=== PATIENT | male | born 1965 | race Hispanic/Latino ===

== ENCOUNTER 2019-10-30 09:00 | Outpatient (RCR) | payer OTHER, SELFPAY ==
--- NOTE | 2019-07-31 10:48 | PCOTNOTE ---
The treatment documented on this account is a continuation of the treatment documented on visit number [id number] in [employer] EMR. Please see documentation on both accounts to view progress. The Plan of Care has been transitioned and updated within the new V#. I have addressed and agree with the discipline specific Problems, Interventions, and Goals for the current certification period. Completed interventions, outcomes, and problems have been marked as Inactive to facilitate the copying of the Care plan routine for recurring accounts.
--- NOTE | 2019-08-01 11:24 | PCPTNOTE ---
The treatment documented on this account is a continuation of the treatment documented on visit number [id number]. Please see documentation on both accounts to view progress. The Plan of Care has been transitioned and updated within the new V#. I have addressed and agree with the discipline specific Problems, Interventions, and Goals for the current certification period. Completed interventions, outcomes, and problems have been marked as Inactive to facilitate the copying of the Care plan routine for recurring accounts.
--- NOTE | 2019-08-06 10:46 | PTOPEVAL ---
PHYSICAL THERAPY REEVALUATION/PROGRESS REPORT 08-06-19 Continue PT 2x/week for 2 weeks, to continue to increase strength and activity level for return to work tasks. With progression of home exercises and activity level. Thank you for referring Leonardo to [facility]. Please review, sign, date and return this plan of care PANCHO. I agree with and certify that the following plan of care is medically necessary. Referring Physician Date Admitting Provider: Attending Provider: Josué Aguilar, EXERCISE EQUIPMENT SPECIALIST Referring Provider: *PT Outpatient Evaluation Start: 08/06/19 08:52 Freq: Status: Active Protocol: Document 08/06/19 08:52 LOIS (Rec: 08/06/19 09:34 LOIS [id number]) Therapy Assessment Status Assessment Status Assessment Status Re-evaluation Pain Assessment Timing of Pain Assessment Timing of Pain Assessment Assessment Self Report Self Report Pain Level 0 Pain Score Pain Score 0: Self Report Additional Pain Score Comments states R leg feels heavy and tired, weak Lower Extremity Muscle Strength Testing General Lower Extremity Strength Gross Lower Extremity Strength -R LE: ankle circles clock and counter clockwise with good control x 20 in sitting; SLS 12 seconds; -L LE: SLS 20 sec; -standing green theraband R and L: 20 reps hip abduction, flex and extension; NO UE support; B UE lifting: floor/waist 30# x 10 reps with cues for correct technique for lifting from floor; Transfer Assessment Floor Transfer Assessment Floor Transfer Destination Standing Stand to Floor Transfer Ability Independent Floor to Stand Transfer Ability Independent Cues Needed for Floor Transfer None Floor Transfer Comments performed without any problems Balance Assessment Tran Balance Assessment Sitting to Standing Independent w/out Hands Unsupported Stance Ability Safely- 2 minutes Sitting Unsupported, Feet on Floor Safely- 2 minutes Standing to Sitting Safely, Minimal Hand Use Transfer Ability Safely, Minimal Hand Use Unsupported Stance- Eyes Closed Safely, 10 seconds Unsupported Stance- Feet Together Independent, 1 minute Reaching Forward while Standing Confidently, 10 inches 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
--- NOTE | 2019-08-11 08:22 | PCPTNOTE ---
Patient's called & cancelled scheduled appointment this date due to returned to the hospital possibly another stroke.
--- NOTE | 2019-08-11 15:37 | PCOTNOTE ---
Patient called to cancel OT treatment today due to being in the hospital due to having another stroke.
--- NOTE | 2019-08-18 08:28 | PCPTNOTE ---
Patient called & cancelled scheduled appointment this date, left voicemail on patient's home line stating needing a new order from MD to continue PT before treatment can be continued and will needed to schedule next appointment to re-eval patient due to new condition
--- NOTE | 2019-08-20 13:33 | PCPTNOTE ---
pt called and canceled today's reevaluation;
[2019-08-26 07:35] VITALS: BP_SYST 180
--- NOTE | 2019-08-26 10:53 | OTOPEVAL ---
Addendum entered by Dejon Nova, OTR/Roxana, CHT 08/26/19 11:46: Edit from initial note----Plan to see Leonardo 2-3x/week for 4 weeks. Original Note: OT REASSESSMENT NOTE 08/26/19 Thank you for referring this patient to [facility] [place]Note 2]. Leonardo requires skilled OT 2x/week for 4 weeks to address deficits outlined below. Please review, sign, date and return this re-eval summary PANCHO. I agree with and certify that the following plan of care is medically necessary. Referring Physician Date Attending Provider: Josué Aguilar, SOURCING CONSULTANT *OT Outpatient Re-Evaluation Assessment Status Re-evaluation Evaluation Information Problem Diagnosis CVA Onset Acute infarct Aug 2019 Additional Evaluation Detail Leonardo was receiving outpatient therapy x1 month after a CVA which occurred in Jun 2019. He had worsening (R) sided weakness August 2019. MRI (+) acute infarct L jossie. He was hospitalized for ~1 week and discharged home. He presents today for re- evaluation and continued outpatient therapy for UE/LE weakness. Pain Assessment Timing of Pain Assessment Timing of Pain Assessment Re-assessment Pain Scale Pain Scale Used Numeric (1 - 10) Self Report Pain Assessment Right Knee(s) Reported Pain Level 10 Pain Description Aching Right Shoulder(s) Reported Pain Level 7 Pain Description Aching Other Pain Aggravating Factors Pain with shoulder flexion > 120*, symptoms consistent with impingement Pain Score Pain Score 10,7: Self Report Upper Extremity Range of Motion Scapular/ Shoulder Range of Motion Right Scapular: Retraction Hypomobile Scapular: Protraction Hypomobile Scapular Downward Rotation Hypomobile Scapular Upward Rotation Hypomobile Shoulder Flexion - Active 80 Shoulder Flexion - Passive 180 Shoulder Abduction - Active 90 Shoulder Abduction - Passive 180 Scapular/Shoulder Range of Motion Muscle Weakness,Pain Limitations Elbow/Forearm Range of Motion Right Elbow Flexion - Active 90 Elbow Extension - Active -40 Forearm Supination - Active 30 Forearm Pronation - Active 90 Wrist Range of Motion Right Wrist Flexion - Active 10 Wrist Extension - Active 0 Finger Range of Motion Right Finger Range of Motion Comments No AROM of the fingers or thumb. Patient is beginning to
--- NOTE | 2019-08-26 11:40 | PTOPEVAL ---
PHYSICAL THERAPY REEVALUATION AND UPDATED PLAN OF CARE 08-26-19 Mr. Cabello has received 6 Physical Therapy sessions, from July 17 to August 06. He was hospitalized for new CVA with R hemiparesis. And returned today for a reevaluation with new orders to resume PT treatment. He has declined with his R LE strength and mobility, compared to the August 06 reevaluation. The plan of treatment is 2-3 x/week for 4 weeks. Thank you for referring Leonardo to [facility]. Please review, sign, date and return this updated plan of care [facility]. I agree with and certify that the following plan of care is medically necessary. Referring Physician Date Admitting Provider: Attending Provider: Josué Aguilar, HIGH DENSITY TALC COATER OPERATOR Referring Provider: *PT Outpatient Re-Evaluation Start: 08/06/19 08:52 Freq: Status: Active Protocol: Document 08/26/19 08:30 LOIS (Rec: 08/26/19 09:35 LOIS [email or web address]) Therapy Assessment Status Assessment Status Assessment Status Re-evaluation Problem Diagnosis s/p CVA with R hemiparesis Subjective Information pt hospitalized and has new Query Text:As Reported By Patient/ order dated 08-20-19 to Family continue PT treatment Pain Assessment Pain Scale Pain Scale Used Numeric (1 - 10) Self Report Pain Assessment Right Knee(s) Reported Pain Level 10 Radicular Pain Location patella and medial knee Pain Frequency Acute Current Pain Intensity 10 Lowest Pain Intensity 0 Greatest Pain Intensity 10 Pain Level Goal 0 Other Pain Aggravating Factors sit to stand, walking Right Shoulder(s) Reported Pain Level 0 Pain Score Pain Score 0,10: Self Report Lower Extremity Muscle Strength Testing General Lower Extremity Strength Reason Not Measured WNL/Right Gross Lower Extremity Strength L hip:flex 2+/5;abduct 3-/5; ext 3-/5 L knee: flex 2/5; extension 3- /5 L ankle DF, inversion and eversion 0/5; PF 1/5; Transfer Assessment Bed Transfer Assessment Bed Transfer Assistive Devices Gait Belt Ambulation Assistive Devices Cane, Straight Sit to Stand Bed Transfer Ability Standby Assistance Stand to Sit Bed Transfer Ability Standby Assistance Chair Transfer Assessment Chair Transfer Assistive Devices Gait Belt Ambulation Assistive Devices Cane, Straight Sit to Stand Chair Transfer Ability Standby Assistance Stand to Sit Chair Transfer Ability Standby Assistance Ability to Transfer In/Out of Chair Standby Assistance Bed Mobility Assessment Bed Mobility Bed Mobility Assistive Devices None Bed Type Mat Supine to Sit Ability Standby Assistance Sit to Supine Ability Standby
--- NOTE | 2019-09-02 07:51 | PCPTNOTE ---
Patient called & cancelled scheduled appointment this date due to another appointment.
--- NOTE | 2019-09-09 08:05 | PTOPEVAL ---
PHYSICAL THERAPY RE-EVALUATION AND UPDATED PLAN OF CARE 09-09-19 Mr. Cabello has received 8 Physical Therapy sessions, from July 17 to today, for the diagnosis of CVA. He was on HOLD during this time frame due to he had an additional CVA in August. He has had a decline in status from the initial evaluation, due to additional CVA. Continue PT treatment 2-3x/week for 4 weeks, to October 03. Thank you for referring Leonardo to [facility]. Please review, sign, date and return this plan of care PANCHO. I agree with and certify that the following plan of care is medically necessary. Referring Physician Date Attending Provider: Josué Aguilar, STACK SUPERVISOR *PT Outpatient RE-Evaluation Document 09/09/19 07:00 LOIS (Rec: 09/09/19 07:45 LOIS [email or web address]) Therapy Assessment Status Assessment Status Assessment Status Re-evaluation Subjective Information reports has not had any falls Query Text:As Reported By Patient/ at home, doing leg exercises, Family going to order the ankle brace tomorrow; Pain Assessment Pain Scale Pain Scale Used Numeric (1 - 10) Self Report Pain Assessment Right Shoulder(s) Reported Pain Level 8 Additional Pain Comments no pain in R knee; R shoulder hurting-pointed lateral shoulder R Pain Score Pain Score 8: Self Report Lower Extremity Muscle Strength Testing General Lower Extremity Strength Gross Lower Extremity Strength supine SLR x 15 reps; hook lying hip rotation R/L, ab& adduction; heel slide with assist of L LE x 15 reps; side lying hip abduct to 10' x 20 reps cues to increase control and decrease speed of motion; Transfer Assessment Bed Transfer Assessment Bed Transfer Assistive Devices None Sit to Stand Bed Transfer Ability Standby Assistance Stand to Sit Bed Transfer Ability Standby Assistance Ability to Transfer To/From the Bed Standby Assistance Cues Needed for Bed Transfer None Chair Transfer Assessment Ambulation Assistive Devices Cane, Straight Sit to Stand Chair Transfer Ability Standby Assistance Stand to Sit Chair Transfer Ability Standby Assistance Ability to Transfer In/Out of Chair Standby Assistance Bed Mobility Assessment Bed Mobility Scooting Side to Side Ability Independent Supine to Sit Ability Independent Sit to Supine Ability Independent Balance Assessment Tinetti Balance Assessment Sitting Balance Steady, safe Ability to Arise Able, w/o using arms Attempts to Arise Arises on 1st attempt Immediate Standing Balance Steady with support Standing Balance Steady, wide stance Nudged Response
--- NOTE | 2019-10-02 07:57 | PTOPEVAL ---
Physical Therapy Re evaluation and updated plan of care 10-02-2019 Leonardo has received 14 Physical Therapy sessions, for the diagnosis of s/p CVA affecting R side. Compared to the last reevaluation, he has improved in all areas: strength of R hip, knee and ankle PF; Tinetti score, sit/stand time, stair ability and has not had any falls. His gait pattern is improved with the AFO and knee hyper extension brace. The scores for Tinetti, TUG, sit/stand and 6 minute walk test are below norms for his age. And he is not able to perform his usual home and work tasks. Recommend continued PT to further increase R LE strength, gait and balance skills, for improved functional mobility and safety, 2x/week for 4 weeks. Thank you for referring Leonardo to [facility]. Please review, sign, date and return this plan of care PANCHO. I agree with and certify that the following plan of care is medically necessary. Referring Physician Date Attending Provider: Josué Aguilar NP *PT Outpatient Re-Evaluation Document 10/02/19 07:05 LOIS (Rec: 10/02/19 07:57 LOIS [email or web address]) Therapy Assessment Status Assessment Status Assessment Status Re-evaluation Re-Evaluation Information Problem Subjective Information Leonardo reports no falls, Query Text:As Reported By Patient/ difficulty on stairs- using Family ramp into home; is with him and performing home chores Pain Assessment Pain Scale Pain Scale Used Numeric (1 - 10) Self Report Pain Assessment Right Knee(s) Reported Pain Level 0 Right Shoulder(s) Reported Pain Level 0 Pain Frequency Chronic Additional Pain Comments had pain in R shoulder yesterday, but it is OK today Lower Extremity Muscle Strength Testing General Lower Extremity Strength Reason Not Measured WNL/Left Gross Lower Extremity Strength R LE: sitting: hip flex ~ 1 off mat x 10 reps; knee ext to 0' x 8 reps, then knee flex; supine R LE: heel slide/hip flex 30' x6; SLR 20 reps; hip abduction x20 reps; bridge with hip ext to 0' x 20 reps; Balance Assessment Tinetti Balance Assessment Sitting Balance Steady, safe Ability to Arise Able, w/o using arms Attempts to Arise Arises on 1st attempt Immediate Standing Balance Steady w/o support Standing Balance Narrow stance w/o support Nudged Response Steady Standing with Eyes Closed Steady Step Pattern Turning 360 Degrees Discontinuous steps Stability Turning 360 Degrees Unsteady, grabs/staggers Sitting Down Safe, steady Initiation of Gait No hesitancy Right Foot Step Length Does pass
--- NOTE | 2019-10-02 09:32 | OTOPEVAL ---
OT RE-EVALUATION REPORT 10/02/19 Thank you for referring this patient to [facility]. As described below, Leonardo is making progress toward ROM and strength goals. Leonardo will benefit from continued skilled OT 2x/week for 4 weeks. Plan 1x/week land and 1x/week aquatic therapy. Please review, sign, date and return this plan of care PANCHO. I agree with and certify that the following plan of care is medically necessary. Referring Physician Date Attending Provider: Josué Aguilar, TOE POUNDER *OT Outpatient Re-Evaluation Re-Evaluation Information Diagnosis s/p CVA x2 Onset May and Aug 2019 Additional Evaluation Detail Leonardo has been participating in outpatient OT 2-3x/week for UE weakness and tone s/p a second CVA. He has made progress with ROM and strength in almost every joint of the (R) UE. He is very compliant with all materials and his is very supportive and helpful with all materials. OT has been focusing on gross strengthening of the (R) UE. Leonardo needs constant visual, tactile, and verbal cues for body mechanics due to hypertoic movement patterns. When raising the arm he elevates the scapula and abducts the arm. E-stim, neuromuscular re-ed, strengthening, HEP education, and manual therapy have been integral to the therapy process. Subjective Information Patient reports improvements Query Text:As Reported By Patient/ with active ROM in the arm, Family especially the wrist and fingers, which were not moving a month ago. He reports he no longer has constant shoulder pain, but intermittent pain. Pain Assessment Timing of Pain Assessment Timing of Pain Assessment Re-assessment Pain Scale Pain Scale Used Numeric (1 - 10) Self Report Pain Assessment Right Wrist(s) Reported Pain Level 5 Pain Description Aching Current Pain Intensity 5 Lowest Pain Intensity 0 Greatest Pain Intensity 5 Right Shoulder(s) Reported Pain Level 0 Pain Description Sharp,Shooting Radicula
--- NOTE | 2019-10-30 08:43 | PTOPEVAL ---
PHYSICAL THERAPY RE-EVALUATION AND UPDATED PLAN OF CARE 10-30-2019 Leonardo has received a total of 22 PT sessions, for the diagnosis of s/p CVA x 2. He has attended all scheduled PT appointments and works hard during sessions. Compared to the last reevaluation on 10-02-19: increased strength of R LE: sitting knee ext, toe ext, ankle DF; 6 min walk increased distance by 55'; TUG, 5x sit/stand, Tinetti are within 1 of the last #; Stairs have improved with the cane only from mod to min assist; gait pattern is about the same--due to decreased R knee flexion strength and extension tone. His continues to assist him at home with home tasks, dressing and transportation. He remains motivated, doing HEP and during PT sessions, using electrical stim to facilitate ankle and toe extension. PT is recommended to continue 2x/week for 4 weeks, to further increase R toe, ankle and knee strength, electrical stim to facilitate motion and balance and gait retraining to improve pattern and safety with mobility skills. Thank you for referring Leonardo to [facility]. Please review, sign, date and return this plan of care [facility]. I agree with and certify that the following plan of care is medically necessary. Referring Physician Date Attending Provider: Josué Aguilar NP *PT Outpatient Re-Evaluation Document 10/30/19 07:45 LOIS (Rec: 10/30/19 08:32 LOIS [email or web address]) Problem Subjective Information Leonardo reports: no falls at Query Text:As Reported By Patient/ home; walking out in community Family with cane; is doing all of his leg exercises; continues to do as much as he can at home; Pain Assessment Timing of Pain Assessment Timing of Pain Assessment Assessment Pain Scale Pain Scale Used Numeric (1 - 10) Self Report Pain Assessment Right Wrist(s) Reported Pain Level 0 Right Shoulder(s) Reported Pain Level 0 Radicular Pain Location sore shoulder at end of day Pain Frequency Chronic Pain Score Pain Score 0,0: Self Report Lower Extremity Muscle Strength Testing General Lower Extremity Strength Gross Lower Extremity Strength L LE: sitting knee ext to 0' x 20 reps; active toe extension 3-/5; ankle PF 2/5; DF trace supine bridge x 20 reps; heel slide--unable to perform due to extension tone of leg; side lying hip abduction x 20 prone hip ext to 0'x 20 reps; unable to perform knee flex in prone; verbal review of HEP for LE strength: continue to do 20 reps on bed and in sitting; in sitting: electrical stim to R ant tib to facilitate t
--- NOTE | 2019-10-30 09:49 | OTOPEVAL ---
OT RE-EVALUATION REPORT 10/30/2019 Thank you for referring this patient to [facility]. As described below, continued skilled OT 2x/week for 4 weeks is recommended. Plan for 1x/week land and 1x/week aquatic. Please review, sign, date and return this plan of care PANCHO. I agree with and certify that the following plan of care is medically necessary. Referring Physician Date Attending Provider: Josué Aguilar *OT Outpatient Re-Evaluation Evaluation Information Problem Diagnosis s/p CVA x2 Onset May and Aug 2019 Additional Evaluation Detail Leonardo has been participating in outpatient OT 2x/week for UE weakness and tone s/p a second CVA. This past month therapy has been utilizing benefits of aquatic therapy to help with his shoulder pain, tone, and weakness. OT has been focusing on gross strengthening of the (R) UE. Leonardo needs constant visual, tactile, and verbal cues for body mechanics due to hypertonic movement patterns. When raising the arm he elevates the scapula and abducts the arm. E-stim, neuromuscular re-ed, strengthening, HEP education, and manual therapy have been integral to the therapy process. Subjective Information Leonardo reports improvements Query Text:As Reported By Patient/ with finger and wrist ROM. He Family states that the improvements in ROM have increased his ability to dress and bathe. His biggest limitation this month has been right shoulder pain. He reports really enjoying the aquatic therapy and that it has helped reduce his shoulder pain. Pain Assessment Timing of Pain Assessment Timing of Pain Assessment Re-assessment Pain Scale Pain Scale Used Numeric (1 - 10) Self Report Pain Assessment Right Shoulder(s) Reported Pain Level 10 Pain Description Sharp,Shooting Lowest Pain Intensity 0 Greatest Pain Intensity 10 Other Pain Aggravating Factors Pain with shoulder AROM > 90*, consistent with impingement Pain Score Pain Sco
--- NOTE | 2019-11-11 09:41 | PCOTNOTE ---
This treatment is being continued on visit number [id number]. Please see documentation on both accounts to view progress. Completed interventions, outcomes, and problems have been marked as Inactive to facilitate the copying of the Care plan routine for recurring accounts.
--- NOTE | 2019-11-11 10:21 | PCPTNOTE ---
This treatment is being continued on visit number [id number]. Please see documentation on both accounts to view progress. Completed interventions, outcomes, and problems have been marked as Inactive to facilitate the copying of the Care plan routine for recurring accounts.
== END 2019-10-30 23:59 | disposition home or self-care (01) ==
LOC: ANHOT 09:00
PROVIDERS: PCP Registered Nurse; Visit Provider Registered Nurse
DX: G81.90 Hemiplegia, unspecified affecting unspecified side (principal)
CPT/HCPCS: 97014; 97035; 97110; 97112; 97113; 97116; 97140; 97530; 97760; G0283

== ENCOUNTER 2019-12-24 19:41 | Emergency (ER) | payer OTHER, SELFPAY ==
[2019-12-24 19:49] VITALS: BP 110/74; PULSE 81; RESP 19; TEMP 36.4; O2SAT 100
--- NOTE | 2019-12-24 19:55 | ED.SKABFB ---
HPI - Skin/Abscess/Foreign Bdy General Chief complaint: Skin/Abscess/Foreign Body Stated complaint: abd wound Time Seen by Provider: 12/24/19 19:53 Source: patient Mode of arrival: ambulatory Limitations: no limitations History of Present Illness HPI narrative: A 54 y/o male presents to the ED with c/o lower right sided ABD wound. Pt states that yesterday he noticed a wound on the right side of his lower ABD. He reports swelling, pain, and redness around the wound, but denies fever and N/V. Pt is a diabetic and is complaint with all of his medications. He has no other complaints at this time. MD complaint: other (wound to right lower ABD) Onset (ago): day(s) (1) Pain Consistency: constant Associated symptoms: other (right lower ABD pain, swelling, and redness) Related Data Home Medications Medication Instructions Recorded Confirmed Januvia 100 mg PO DAILY 08/10/19 08/10/19 aspirin 81 mg PO DAILY 08/10/19 08/10/19 atorvastatin 40 mg PO DAILY 08/10/19 08/10/19 cetirizine 10 mg PO DAILY 08/10/19 08/10/19 clopidogrel 75 mg PO DAILY 08/10/19 08/10/19 doxazosin 4 mg PO DAILY 08/10/19 08/10/19 glyburide 5 mg PO DAILY 08/10/19 08/10/19 lisinopril 20 mg PO DAILY 08/10/19 08/10/19 metoprolol succinate 100 mg PO DAILY 08/10/19 08/10/19 Allergies Allergy/AdvReac Type Severity Reaction Status Date / Time No Known Allergies Allergy Verified 08/10/19 14:30 Review of Systems Review of Systems: All systems reviewed & are unremarkable except as noted in HPI and below Constitutional: Constitutional: Denies fever(s) Gastrointestinal: Gastrointestinal: Denies nausea and Denies vomiting Integumentary/Breasts: Skin/Breast: Reports swelling (right lower ABD), Reports erythema (right lower ABD) and Reports wounds (right lower ABD with pain) [facility] Past Medical History Medical History Arthritis bilateral shoulders Cerebrovascular accident CVA (cerebral vascular accident) DVT prophylaxis Hyperlipidemia Hypertension Kidney stones Peripheral neuropathy Type 2 diabetes mellitus Surgical History Surgical History H/O cystoscopy with stent H/O inguinal hernia repair History of cardiac cath Family History Family History Mother Diabetes mellitus Coronary artery disease Father Diabetes mellitus Social History Social History Smoking status: Former smoker Alcohol intake: never Substance use: never Gender identity (if verbalized by the patient): Male Spiritual care concerns: No Agree to blood products: Yes Exam Narrative: Exam Narrative: APPEARANCE: No acute distress, nontoxic, resting in bed EYES: EOMI HEENT: Normocephalic, atraumatic, OMM RESPIRATORY: No respiratory distress Clear to auscultation bilaterally with no rhonchi wheezing or rales. CARDIOVASCULAR: Regular rate and rhythm without murmurs rubs or gallops. ABDOMINAL: Soft, nontender, nondistended, no rebound or guarding MUSCULOSKELETAl: Moves all extremities NEURO: Awake and alert. Following commands, speech normal, no focal deficits SKIN:: Warm, dry. The right lower abdomen has a circular area of erythema with centralized fluctuance and no active drainage consistent with an abscess proximally 2.5 cmby 2.5 cm PSYCHIATRIC: Normal affect/mood, Course Course Emergency Course: Discussed with patient results of workup and diagnosis. Discussed need for follow-up with primary care, proper use of medication, and reasons to return to the emergency department. Patient understands and agrees to current treatment plan Vital Signs Vital signs: Vital Signs Temperature 97.5 F L 12/24/19 19:49 Pulse Rate 81 12/24/19 19:49 Respiratory Rate 19 12/24/19 19:49 Blood Pressure 110/74 12/24/19 19:49 Pulse Oximetry 100 12/24/19 19:49 Temperature 97.5 F L 12/24/19
[2019-12-24] MEDS: CEPHALEXIN 500 MG CAPSULE PO (20:47)
== END 2019-12-24 20:48 | disposition home or self-care (01) ==
PROVIDERS: Emergency Provider Emergency Medicine; PCP Registered Nurse
DX: L02.211 Cutaneous abscess of abdominal wall (principal); M19.012 Primary osteoarthritis, left shoulder; M19.011 Primary osteoarthritis, right shoulder; Z86.73 Personal history of transient ischemic attack (TIA), and cerebral infarction without residual deficits; E78.5 Hyperlipidemia, unspecified; I10 Essential (primary) hypertension; Z87.442 Personal history of urinary calculi; E11.42 Type 2 diabetes mellitus with diabetic polyneuropathy; S31.103A Unspecified open wound of abdominal wall, right lower quadrant without penetration into peritoneal cavity, initial encounter; Z87.891 Personal history of nicotine dependence; Z79.82 Long term (current) use of aspirin; Z79.84 Long term (current) use of oral hypoglycemic drugs
CPT/HCPCS: 10060; 99283; A9270

== ENCOUNTER 2020-01-26 11:00 | Outpatient (RCR) | payer OTHER, SELFPAY ==
--- NOTE | 2019-11-11 10:19 | PCPTNOTE ---
PT is continued from previous V # [id number]; plan of care to continue from previous #;
--- NOTE | 2019-11-11 13:07 | PCOTNOTE ---
The treatment documented on this account is a continuation of the treatment documented on visit number [id number]. Please see documentation on both accounts to view progress. The Plan of Care has been transitioned and updated within the new V#. I have addressed and agree with the discipline specific Problems, Interventions, and Goals for the current certification period. Completed interventions, outcomes, and problems have been marked as Inactive to facilitate the copying of the Care plan routine for recurring accounts.
--- NOTE | 2019-11-25 11:42 | OTOPEVAL ---
OCCUPATIONAL THERAPY PROGRESS REPORT 11/25/2019 Thank you for referring this patient to [facility]. As described below, Leonardo is making progress with shoulder stability and strength, which is allowing for improved distal coordination and function. He will benefit from skilled OT 2x/week for 4 weeks. Plan to have 1x/week land and 1x/week aquatic sessions. Aquatic is indicated to utilize thermal (warm) benefits of the water, buoyancy, and resistance to continue to strengthen the shoulder and carlos a-scapular muscles to continue to strengthen and reduce shoulder pain. Please review, sign, date and return this plan of care PANCHO. I agree with and certify that the following plan of care is medically necessary. Referring Physician Date Referring Provider: Josué Aguilar, SOLAR ENERGY SYSTEMS DESIGNER *OT Outpatient Re-Evaluation Assessment Status Re-evaluation Evaluation Information Problem Diagnosis s/p CVA x2 Onset May and Aug 2019 Additional Evaluation Detail This assessment period Leonardo was only able to be seen 3 times, including todays re- evaluation due to insurance only authorizing 3 visits. Pt has made progress, however, the progress is limited due to lack of opportunity to treat the patient with skilled, hands-on instruction. Pain Assessment Timing of Pain Assessment Timing of Pain Assessment Re-assessment Pain Scale Pain Scale Used Numeric (1 - 10) Self Report Pain Assessment Right Shoulder(s) Reported Pain Level 0 Current Pain Intensity 0 Lowest Pain Intensity 0 Greatest Pain Intensity 4 Pain Score Pain Score 0: Self Report Additional Pain Score Comments Pain reduced from 10/10, sharp /shooting pain. Upper Extremity Range of Motion Scapular/ Shoulder Range of Motion Right Shoulder Flexion - Active 90 Shoulder Extension - Active 50 Shoulder Abduction - Active 75 Shoulder Medial Rotation - Active Pt is able to reach the Query Text:Reach Behind the Back lateral aspect of his iliac crest. Shoulder Lateral Rotation - Active Pt actively bends elbow, but Query Text:Reach Behind the Head there is minimal active ER to reach toward face/ear. Painful passively. Scapular/Shoulder Range of Motion Since re-eval on 10/30/19: Comments - shoulder flexion improved 10 * - shoulder extension improved 10* Improved scapular movements; Minimally decreased scapular
--- NOTE | 2019-11-27 08:55 | PTOPEVAL ---
PHYSICAL THERAPY DISCHARGE REPORT 11-27-2019 Mr. Cabello has received 25 PT sessions, from August 04, 2019 to today, for the diagnosis of s/p CVA. Compared to the last reevaluation on 10-30-2019: R LE strength is about the same; Tinetti balance score has decreased by 2 points; TUG has improved by 2 seconds; 6 min walk test has increased by 25'; 5 x sit/stand has improved by 1 second; ability on stairs and walking pattern are the same. He reports he has not had any falls, is going out into the community and is doing his home exercises for leg strengthening. Leonardo continues to perform his HEP and remains active, using the R knee brace and ankle brace. He will be discharged from PT at this time; he is to continue with his home exercises and walking as much as tolerated. Thank you for referring Mr. Cabello to [facility]. Please review, sign, date and return this discharge summary PANCHO. I agree with and certify that the following plan of care is medically necessary. Referring Physician Date Attending Provider: Josué Aguilar NP Document 11/27/19 08:15 LOIS (Rec: 11/27/19 08:41 LOIS [email or web address]) Pain Assessment Timing of Pain Assessment Timing of Pain Assessment Assessment Self Report Self Report Pain Level 0 Pain Score Pain Score 0: Self Report Lower Extremity Muscle Strength Testing General Lower Extremity Strength Reason Not Measured WNL/Left Gross Lower Extremity Strength R LE: sitting: knee extension to 0' x 5 reps, with increased tone and movement of trunk; ankle DF with heel on ground- trace contraction; ankle PF ~ 20' of motion; supine: heel slide unable to initiate movement due to tone; with assist of L LE to flex hip/knee, can perform extension of hip and knee x15 reps; R SLS 1 second with UE support to avoid falling; Electric stim to facilitate R ankle DF and toe extension; 10 min in sitting with Jordanian stim; Balance Assessment Tinetti Balance Assessment Sitting Balance Steady, safe Ability to Arise Able, w/o using arms Attempts to Arise Arises on 1st attempt Immediate Standing Balance Steady w/o support Standing Balance Steady, wide stance Nudged Response Steady Standing with Eyes Closed Steady Step Pattern Turning 360 Degrees Discontinuous steps Stability Turning 360 Degrees Unsteady, grabs/staggers Sitting Down Safe, steady Initiation of Gait No hesitancy Right Foot Step Length Does pass st
--- NOTE | 2019-12-18 09:55 | PCOTNOTE ---
Patient called and cancelled OT tx this AM.
--- NOTE | 2019-12-25 14:10 | OTOPEVAL ---
OCCUPATIONAL THERAPY PROGRESS REPORT 12/25/2019 Thank you for referring this patient to [facility]. As described below, Leonardo is making progress with shoulder stability and strength, which is allowing for improved distal coordination and function. He will benefit from skilled OT 2x/week for 4 weeks. Plan to have 1x/week land and 1x/week aquatic treatment sessions. Aquatic is indicated and beneficial to utilize thermal properties of the water, buoyance, and resistance to continue to strengthen the shoulder and carlos a-scapular muscles as well as reduce tone and shoulder pain with movement. Please review, sign, date and return this progress report PANCHO. I agree with and certify that the following plan of care is medically necessary. Referring Physician Date Admitting Provider: Attending Provider: Josué Aguilar, IT APPLICATION ADMINISTRATOR Referring Provider: *OT Outpatient Re-Evaluation Evaluation Information Problem Diagnosis s/p CVA x2 Onset May and Aug 2019 Additional Evaluation Detail This assessment period Leonardo was seen 2x/week for 4 weeks. This included 1x/week land and 1x/week aquatic treatment. Aquatic focused on proximal strengthening and land focused on distal ROM and coordination. Subjective Information Leonardo reports reduction in Query Text:As Reported By Patient/ pain since the last Family reassessment. He used to have pain all day and night , now his pain only occurs with exercise and movement. He also feels like his shoulder is moving better which allows him to raise his arm higher. He verbalizes good compliance with all home exercises. Pain Assessment Timing of Pain Assessment Timing of Pain Assessment Re-assessment Pain Scale Pain Scale Used Numeric (1 - 10) Self Report Pain Assessment Right Wrist(s) Reported Pain Level 7 Pain Description Sharp Pain Frequency Acute Right Shoulder(s) Reported Pain Level 0 Pain Score Pain Score 0,7: Self Report Upper Extremity Range of Motion Scapular/ Shoulder Range of Motion Right Shoulder Flexion - Active 100 Shoulder Extension - Active 60 Shoulder Abduction - Active 90 Shoulder Medial Rotation - Active Pt is able to reach the Query Text:Reach Behind the Back lateral aspect of his illiac crest. Shoulder Lateral Rotation - Active Pt actively bends elbow, but Query Text:Reach Behind the Head there is minimal active ER to reach toward face/ear. Painful
--- NOTE | 2020-01-22 08:49 | PCOTNOTE ---
Patient called and cancelled OT tx today due to knee pain.
--- NOTE | 2020-01-26 12:00 | OTOPEVAL ---
OCCUPATIONAL THERAPY DISCHARGE Thank you for referring Leonardo Cabello to [facility]. At this time, Leonardo demonstrates a progress plateau with RUE rehabilitation. He is currently independent with all HEP for ROM and strength. He continues to have severely limited use of the RUE due to pain, tone, and weakness, however will be discharged from skilled OT due to lack of functional progress this assessment period. Please review, sign, date and return this D/C report PANCHO. I agree with and certify that the following plan of care is medically necessary. Referring Physician Date Admitting Provider: Attending Provider: Josué Aguilar, SENIOR BUDGET ANALYST Referring Provider: *OT Outpatient Re-Evaluation & Discharge Pain Assessment Timing of Pain Assessment Timing of Pain Assessment Re-assessment Pain Scale Pain Scale Used Numeric (1 - 10) Self Report Pain Assessment Right Hand(s) Reported Pain Level 5 Pain Description Aching Right Wrist(s) Reported Pain Level 0 Right Shoulder(s) Reported Pain Level 0 Pain Score Pain Score 0,0,5: Self Report Upper Extremity Range of Motion Scapular/ Shoulder Range of Motion Right Shoulder Flexion - Active 90 Shoulder Extension - Active 60 Shoulder Abduction - Active 75 Shoulder Medial Rotation - Active Pt is able to reach the Query Text:Reach Behind the Back lateral aspect of his illiac crest. Shoulder Lateral Rotation - Active Pt actively bends elbow, and Query Text:Reach Behind the Head there is about 20* active ER to reach toward face/ear. Painful passively. This improved from little to no active ER. Scapular/Shoulder Range of Motion Since re-eval on 12/25/19: Comments - shoulder flexion decreased 10* - shoulder extension remained WFL at 60* - shoulder abduction decreased 15* Minimally decreased scapular pro/retraction and elevation/ depression compared to non- involved side. Elbow/Forearm Range of Motion Right Elbow Flexion - Active 130 Elbow Extension - Active -15 Forearm Supination - Active 60 Forearm Pronation - Active 90 Elbow/Forearm Range of Motion Comments No changes since re-eval on . Wrist Range of Motion Right Wrist Flexion - Active 40 Wrist Flexion - Passive 60 Wrist Extension - Active 35 Wrist Extension - Passive 60 Wrist Range of Motion Comments No change since last re- evaluation. Hand Drum Tender/Pinch Strength Asse
== END 2020-01-26 13:36 | disposition home or self-care (01) ==
LOC: ANHOT 11:00
PROVIDERS: PCP Registered Nurse; Visit Provider Registered Nurse
DX: G81.90 Hemiplegia, unspecified affecting unspecified side (principal)
CPT/HCPCS: 97014; 97110; 97112; 97113; 97116; 97140; G0283

== ENCOUNTER 2020-04-27 10:27 | Outpatient (CLI) | payer OTHER, SELFPAY ==
--- NOTE | ~2020-04-27 | MR_ITS ---
EXAMINATION: MR cervical spine wo con DATE: 04/27/2020 11:38 INDICATION: Neck pain. TECHNIQUE: Magnetic resonance imaging (MRI) of the cervical spine was performed without intravenous c ontrast. Sequences included sagittal T2-weighted FSE, sagittal T2-weighted FS FSE, sagittal T1-weight ed FSE, axial MERGE, and axial T2-weighted FSE. COMPARISON: None FINDINGS: There is mild kyphosis of cervical spine. Vertebral body heights and intervertebral disc he ights are normal. There is a hemangioma in T5 vertebral body. The spinal cord signal intensity is nor mal. The following disc levels are specifically discussed: C2-C3: There is a central protrusion. There is no uncovertebral joint osteoarthritis. There is mild b ilateral facet joint osteoarthritis. There is no neural foraminal stenosis. There is no central canal stenosis. C3-C4: The disc does not extend beyond the endplate margin. There is no uncovertebral joint osteoarth ritis. There is mild left facet joint osteoarthritis. There is mild left neural foraminal stenosis. T here is no central canal stenosis. C4-C5: The disc does not extend beyond the endplate margin. There is no uncovertebral joint osteoarth ritis. There is mild bilateral facet joint osteoarthritis. There is no neural foraminal stenosis. The re is no central canal stenosis. C5-C6: The disc is bulging. There is mild bilateral uncovertebral joint osteoarthritis. There is no f acet joint osteoarthritis. There is no neural foraminal stenosis. There is mild central canal stenosi s. C6-C7: The disc is bulging. There is moderate bilateral uncovertebral joint osteoarthritis. There is no facet joint osteoarthritis. There is mild bilateral neural foraminal stenosis. There is mild centr al canal stenosis. C7-T1: The disc does not extend beyond the endplate margin. There is no uncovertebral joint osteoarth ritis. There is mild right and moderate left facet joint osteoarthritis. There is mild left neural fo raminal stenosis. There is no central canal stenosis. IMPRESSION: 1. Mild cervical spondylosis. Reviewed, dictated and finalized at location A.
== END 2020-04-27 10:28 | disposition home or self-care (01) ==
LOC: ANHIMG 10:34
PROVIDERS: PCP Registered Nurse; Visit Provider Nurse Practitioner Family
DX: M47.892 Other spondylosis, cervical region (principal)
CPT/HCPCS: 72141

== ENCOUNTER 2020-07-06 14:15 | Outpatient (RCR) | payer OTHER, SELFPAY ==
--- NOTE | 2020-06-21 10:09 | PTOPEVAL ---
Thank you for referring Leonardo Cabello to [facility].? The patient is scheduled to be seen for therapy? 1 x/week for 4 weeks. Please review, sign, date and return this plan of care PANCHO. I agree with and certify that the following plan of care is medically necessary. Referring Physician Date Admitting Provider: Attending Provider: PHYSICIAN NOT ON STAFF Referring Provider: *PT Outpatient Evaluation Start: 06/21/20 08:55 Freq: Status: Active Protocol: Document 06/21/20 08:58 TL (Rec: 06/21/20 09:32 TL [email or web address]) Therapy Assessment Status Assessment Status Assessment Status Evaluation Outpatient Past Medical History Past Medical History Source of Past Medical History Recalled from Previous Visit, Confirmed with Patient/Family Neurological History Hx Cerebrovascular Accident (CVA) Yes Cardiovascular History Hx Hypercholesterolemia Yes Hx Hypertension Yes Gastrointestinal History Hx Appendectomy Yes Hx Cholecystectomy Yes Genitourinary History Hx Kidney Stones Yes Musculoskeletal History Hx Gout Yes Hx Rheumatoid Arthritis Yes Endocrine History Hx Diabetes Yes HEENT History Hx Tonsillectomy Yes Evaluation Information Problem Diagnosis Cervical pain/arthritis Subjective Information Pt states no pain this date, Query Text:As Reported By Patient/ however, reports he often has Family cervical pain first thing in the morining that tends to loosen up once he's up and moving around. Had a cortisone shot last 06/17 that has helped with R arm pain. Reports MD referred to therapy secondary to MRI that revealed cervical arthritis and inflammation at his lower back. Patient has had multiple CVAs; most recent was 1 year ago. Takes gabapentin for pain in his R arm 3x/day. Has follow up appointment with MD on Jul 02 Diagnostic Tests MRI For This Problem Yes: cervical arthritis Previous Treatments Previous Treatments For This Problem PT/OT for CVA Pain Assessment Timing of Pain Assessment Timing of Pain Assessment Assessment Self Report Self Report Pain Level 0 Pain Score Pain Score 0: Self Re
--- NOTE | 2020-07-06 14:47 | PTOPEVAL ---
PHYSICAL THERAPY DISCHARGE NOTE Thank you for referring Leonardo Cabello to [facility].? Please review, sign, date and return this plan of care PANCHO. I agree with and certify that the following plan of care is medically necessary. Referring Physician Date Discharge Diagnosis Cervical pain/arthritis Subjective Information States that he is feelling Query Text:As Reported By Patient/ really well. He was having Family pain in his neck that radiated to his right shoulder, but since his injections he has had no arm pain. Pain Assessment Timing of Pain Assessment Timing of Pain Assessment Pre-Treatment Self Report Self Report Pain Level 0 Pain Score Cervical and Lumbar ROM Cervical ROM Cervical Flexion (0-60) 50 Query Text:Active in Degrees Cervical Extension (0-70) 48 Query Text:Active in Degrees Cervical Lateral Flexion Right (0-50) 39 Query Text:Active in Degrees Cervical Lateral Flexion Left (0-50) 40 Query Text:Active in Degrees Cervical Rotation Right (0-90) 66 Query Text:Active in Degrees Cervical Rotation Left (0-90) 70 Query Text:Active in Degrees Upper Extremity Range of Motion General Upper Extremity Range of Motion Reason Not Measured WFL/Left Gross Upper Extremity Range of Motion R UE ROM limited secondary to Comments CVA Flexion ~ 70 degrees Abd ~ 85 degrees IR to abdomen Cervical and Lumbar Muscle Testing Cervical Muscle Testing Reason Not Tested WFL/Left,WFL/Right Palpation No pain to palpation. Moderate cervical and thoracic PA hypomobility PT Clinical Summary Mr. Cabello is a 54 year old male referred to OP PT with diagnoses of cervical spondylopathy. Leonardo reports no pain in cervical spine or right arm over the last two weeks. He reports that the injections he is receiving have eliminated the pain he was experiencing and he is not sure if he needs further therapy. His cervical ROM is WNL and he has no increased symptoms with cervical motion or right UE motion. I recommend discharge at this time.
== END 2020-07-07 12:40 | disposition home or self-care (01) ==
LOC: ANHPT 14:15
PROVIDERS: PCP Registered Nurse
DX: M48.9 Spondylopathy, unspecified (principal)
CPT/HCPCS: 97110; 97140; 97161

== ENCOUNTER 2020-07-19 07:02 | Outpatient (CLI) | payer OTHER, SELFPAY ==
--- NOTE | ~2020-07-19 | MR_ITS ---
EXAMINATION: MR lumbar spine wo con DATE: 07/19/2020 07:53 INDICATION: Lumbago. TECHNIQUE: Magnetic resonance imaging (MRI) of the lumbar spine was performed without intravenous con trast. Sequences included sagittal T2-weighted FSE, sagittal T2-weighted FS FSE, sagittal T1-weighted FSE, and axial T2-weighted FSE. COMPARISON: None FINDINGS: There is 7 degrees dextrocurvature of lumbar spine. There is mild chronic anterior wedging of T11 and T12 vertebral bodies. There are Schmorl's nodes at multiple levels. There is mildly decrea sed disc height at L3-L4. There is epidural lipomatosis in lower lumbar spine. The distal spinal cord signal intensity is normal. The conus medullaris is at L1. The following disc levels are specificall y discussed: L1-L2: The disc is bulging. There is no facet joint osteoarthritis. There is mild right neural forami nal stenosis. There is mild central canal stenosis. L2-L3: The disc is mildly bulging. There is moderate bilateral facet joint osteoarthritis. There is m ild bilateral neural foraminal stenosis. There is no central canal stenosis. L3-L4: The disc is bulging. There is moderate bilateral facet joint osteoarthritis. There is mild rig ht and moderate left neural foraminal stenosis. There is mild central canal stenosis. L4-L5: The disc is bulging. There is severe right and mild left facet joint osteoarthritis. There is mild bilateral neural foraminal stenosis. There is mild central canal stenosis. L5-S1: The disc is bulging. There is severe bilateral facet joint osteoarthritis. There is moderate b ilateral neural foraminal stenosis. There is moderate central canal stenosis. IMPRESSION: 1. Moderate lumbar spondylosis. Reviewed, dictated and finalized at location A.
== END 2020-07-19 07:03 | disposition home or self-care (01) ==
PROVIDERS: PCP Registered Nurse; Visit Provider Nurse Practitioner Adult Health
DX: M47.896 Other spondylosis, lumbar region (principal)
CPT/HCPCS: 72148

== ENCOUNTER 2020-10-29 08:07 | Outpatient (CLI) | payer OTHER, SELFPAY ==
[2020-10-29 09:06] LABS: Add Urine Microscopic? YES; Appearance Urine Clear (Clear); Bacteria Urine Trace /hpf; Bilirubin Urine Negative (Negative); Blood Urine Negative (Negative); Color Urine Straw (Yellow); Glucose Urine UA 3+ mg/dL (Negative); Ketones Urine Negative (Negative); Leukocyte Esterase Ur Negative LEU/UL (NEGATIVE); Mucus Urine Rare /lpf; Nitrate Urine Negative (Negative); Protein Urine 3+ mg/dL (Negative); RBC Urine 0-2 /hpf (0-2); Squamous Epithelial Cell Urine Rare /hpf (Few); Urobilinogen Urine Negative mg/dL (<2.0); WBC Urine 0-3 /hpf (0-3)
[2020-10-29 09:08] LABS: Specific Grav Ur 1.031 (1.001-1.035)
[2020-10-29 09:22] LABS: Anion Gap 7 mmol/L (8-16); Blood Urea Nitrogen 10 mg/dL (9-20); Calcium 9.1 mg/dL (8.4-10.2); Carbon Dioxide 30 mmol/L (22-30); Chloride 101 mmol/L (98-107); Estimated Glomerular Filt Rate > 60; Glucose 181 mg/dL (75-110); Potassium 4.2 mmol/L (3.4-5.0); Sodium 138 mmol/L (137-145)
[2020-10-29 09:38] LABS: Creatinine Urine 60.9 mg/dL
[2020-10-29 10:53] LABS: MALB Creatinine Ratio 1752.2 mg/g (0-30); Microalbumin Urine Random 1067.1 mg/L (0-16.7)
== END 2020-10-29 08:08 | disposition home or self-care (01) ==
LOC: ANHLAB 08:09
PROVIDERS: Family Provider Registered Nurse; PCP Registered Nurse; Visit Provider Internal Medicine Nephrology
DX: N18.1 Chronic kidney disease, stage 1 (principal); E11.21 Type 2 diabetes mellitus with diabetic nephropathy
CPT/HCPCS: 36415; 80048; 81001; 82043; 83036

== ENCOUNTER 2020-12-21 10:08 | Outpatient (CLI) | payer OTHER, SELFPAY ==
--- NOTE | ~2020-12-21 | XR_ITS ---
XR knee RT min 4V DATE: 12/21/2020 11:14 INDICATION: Intermittent medial right knee pain. Right paresis. TECHNIQUE: AP, bilateral oblique and lateral views COMPARISON: None FINDINGS: There is mild suprapatellar knee joint effusion. There is enthesopathy of the superior pole of the patella at the quadriceps tendon insertion. There i s mild periarticular spurring of the patella. Medial and lateral compartment joint spaces are well pr eserved. No radiopaque intra-articular loose body or chondrocalcinosis. Osteopenia. No fracture, dislocation, periosteal reaction or bone destruction. IMPRESSION: Knee joint effusion Osteoarthritis at the patellofemoral joint Osteopenia Reviewed, dictated and finalized at location B.
[2020-12-21 10:45] LABS: Basophils Absolute Auto 0.1 K/mm3 (0.0-0.1); Basophils Percent Auto 0.5 % (0.2-1.2); Eosinophils Absolute Auto 0.6 K/mm3 (0-0.3); Hematocrit 45.3 % (42.0-52.0); Hemoglobin 15.1 g/dL (14.0-18.0); Immature Granulocyte Absolute 0.05 K/mm3 (0.00-0.031); Immature Granulocyte Percent A 0.5 % (0-0.5); Lymphocytes Absolute Auto 2.68 K/mm3 (0.9-3.2); Lymphocytes Percent Auto 24.2 % (18.3-44.2); Mean Corpuscular HGB Conc 33.3 g/dl (32-36); Mean Corpuscular Hemoglobin 30.1 pg (26-34); Mean Corpuscular Volume 90.2 fl (80-100); Mean Platelet Volume 11.4 fl (7.4-10.4); Monocytes Absolute Auto 0.7 K/mm3 (0.1-0.6); Monocytes Percent Auto 6.3 % (2.6-8.5); Neutrophils Percent Auto 63.5 % (45.5-73.1); Platelet Count Result 252 k/mm3 (150-375); Red Blood Count 5.02 M/mm3 (4.6-6.20); Red Cell Distribution Width 13.3 % (11.5-14.5); White Blood Count 11.1 K/mm3 (4.5-10.0)
[2020-12-21 10:54] LABS: Hemoglobin A1C 8.5 % (<5.7)
[2020-12-21 10:58] LABS: Alanine Aminotransferase 296 U/L (4-50); Albumin Level 3.8 g/dL (3.5-5.1); Alkaline Phosphatase 129 U/L (38-126); Anion Gap 7 mmol/L (8-16); Aspartate Amino Transferase 149 U/L (17-59); Bilirubin,Total 0.6 mg/dL (0.2-1.3); Blood Urea Nitrogen 9 mg/dL (9-20); Calcium 9.1 mg/dL (8.4-10.2); Carbon Dioxide 27 mmol/L (22-30); Chloride 103 mmol/L (98-107); Cholesterol 118 mg/dL (0-200); Estimated Glomerular Filt Rate > 60; Glucose 146 mg/dL (75-110); HDL Direct 35 mg/dL; Potassium 4.2 mmol/L (3.4-5.0); Sodium 137 mmol/L (137-145); Triglycerides 219 mg/dL (<150)
[2020-12-21 11:09] LABS: LDL Cholesterol Direct 47 mg/dL
[2020-12-21 11:26] LABS: Creatinine Urine 58.4 mg/dL
[2020-12-21 11:27] LABS: Prostate Specific Antigen 1.1 ng/mL (< OR = 4.0)
[2020-12-21 12:39] LABS: MALB Creatinine Ratio 1388.5 mg/g (0-30); Microalbumin Urine Random 810.9 mg/L (0-16.7)
== END 2020-12-21 10:09 | disposition home or self-care (01) ==
PROVIDERS: PCP Registered Nurse; Visit Provider Registered Nurse
DX: Z12.5 Encounter for screening for malignant neoplasm of prostate (principal); M17.11 Unilateral primary osteoarthritis, right knee; E11.8 Type 2 diabetes mellitus with unspecified complications; E78.5 Hyperlipidemia, unspecified; I69.851 Hemiplegia and hemiparesis following other cerebrovascular disease affecting right dominant side; M25.561 Pain in right knee; M25.461 Effusion, right knee; M85.861 Other specified disorders of bone density and structure, right lower leg
CPT/HCPCS: 36415; 73564; 80053; 80061; 82043; 83036; 84153; 85025; G0103

== ENCOUNTER 2021-01-01 10:17 | Outpatient (CLI) | payer OTHER, SELFPAY ==
[2021-01-01 11:16] LABS: Alanine Aminotransferase 167 U/L (4-50); Albumin Level 4.1 g/dL (3.5-5.1); Alkaline Phosphatase 128 U/L (38-126); Anion Gap 8 mmol/L (8-16); Aspartate Amino Transferase 98 U/L (17-59); Bilirubin,Total 0.8 mg/dL (0.2-1.3); Blood Urea Nitrogen 12 mg/dL (9-20); Carbon Dioxide 29 mmol/L (22-30); Chloride 104 mmol/L (98-107); Cholesterol 112 mg/dL (0-200); Estimated Glomerular Filt Rate > 60; Glucose 117 mg/dL (75-110); HDL Direct 32 mg/dL; Potassium 4.3 mmol/L (3.4-5.0); Sodium 141 mmol/L (137-145); Triglycerides 193 mg/dL (<150)
[2021-01-01 11:28] LABS: LDL Cholesterol Direct 46 mg/dL
== END 2021-01-01 10:18 | disposition home or self-care (01) ==
PROVIDERS: PCP Registered Nurse
DX: E78.2 Mixed hyperlipidemia (principal); I10 Essential (primary) hypertension
CPT/HCPCS: 36415; 80053; 80061

== ENCOUNTER 2021-01-19 09:05 | Outpatient (CLI) | payer OTHER, SELFPAY ==
--- NOTE | ~2021-01-19 | US_ITS ---
EXAMINATION: US right upper quadrant DATE: 01/19/2021 10:11 INDICATION: Abnormal liver function tests. TECHNIQUE: Multiple grayscale and Doppler ultrasound images of the abdomen were obtained. COMPARISON: CT abdomen and pelvis 02/08/2015 FINDINGS: The visualized portions of the head and body of the pancreas are normal. There is diffuse h epatic steatosis. There is normal flow in main portal vein. The gallbladder is normal in size. No gal lstones or gallbladder wall thickening. There is no sonographic Bonilla sign. The common duct is warren l and measures 5 mm. IMPRESSION: 1. Diffuse hepatic steatosis. Reviewed, dictated and finalized at location B.
[2021-01-19 10:39] LABS: Hepatitis B Surface Antigen Negative (Negative)
[2021-01-19 10:45] LABS: HAV RESULT Negative (Negative); Hepatitis B Core IgM Result Negative (Negative)
[2021-01-19 10:56] LABS: Hepatitis C Virus Antibody Negative (Negative)
[2021-01-20 10:28] LABS: Alanine Aminotransferase 88 U/L (4-50); Albumin Level 4.1 g/dL (3.5-5.1); Alkaline Phosphatase 132 U/L (38-126); Aspartate Amino Transferase 63 U/L (17-59); Bilirubin,Total 0.8 mg/dL (0.2-1.3)
== END 2021-01-19 09:06 | disposition home or self-care (01) ==
PROVIDERS: PCP Registered Nurse; Visit Provider Registered Nurse
DX: K76.89 Other specified diseases of liver (principal)
CPT/HCPCS: 36415; 76705; 80074; 80076

== ENCOUNTER 2021-01-24 08:30 | Outpatient (RCR) | payer OTHER, SELFPAY ==
--- NOTE | 2020-12-13 09:07 | OTOPEVAL ---
OCCUPATIONAL THERAPY INITIAL EVALUATION: 12/13/2020 Thank you for referring Leonardo Cabello to [facility].? The patient is scheduled to be seen for occupational therapy?2x/week with 1x/week aquatic and 1x/week on land for 3 weeks. Please review, sign, date and return this plan of care PANCHO. I agree with and certify that the following plan of care is medically necessary. Referring Physician Date Attending Provider: PHYSICIAN NOT ON STAFF *OT Outpatient Evaluation Start: 12/13/20 07:30 Freq: Status: Active Protocol: Document 12/13/20 08:04 ELLIOTT (Rec: 12/13/20 09:07 ELLIOTT [email or web address]) Therapy Assessment Status Assessment Status Assessment Status Evaluation Evaluation Information Problem Diagnosis CVA 2019 Onset 2019 Additional Evaluation Detail Decreased presents with decreased strength, ROM, coordination in R UE from CVA in 2019 Subjective Information Patient reports feels stronger Query Text:As Reported By Patient/ than previous occupational Family therapy in December of 2019. Reports still has decreased strength in R UE arm and hand. Pt reports decreased participation with functional ADLs including bathing and dressing. Prior Level of Function Activity Level (Last 3 Months) Hand Dominance Right Activity of Daily Living Ability Independent Indoor/Home Mobility Independent Community Mobility Independent Stairs Ability Independent Functional Cognition (Planning, Shopping Independent , Taking Medications) Home Setting Home Type Mobile Home Environmental Barriers Ramp,Stairs, 2-4 Living Situation With Friend Mobility Assistive Devices (Used Last 3 Cane Months) Bathroom Environment Bathtub, Standard Bathing Equipment Grab Bars,Tub Seat With Back Pain Assessment Timing of Pain Assessment Timing of Pain Assessment Assessment Self Report Self Report Pain Level 0 Pain Score Pain Score 0: Self Report Upper Extremity Range of Motion General Upper Extremity Range of Motion Reason Not Measured WNL/Left Scapular/ Shoulder Range of Motion Right Reason Not Measured WNL/Left Shoulder Flexion - Active 100 Shoulder Extension - Active 45 Shoulder Abduction - Active 90 Shoulder Adduction - Active 0 Shoulder Medial Rotation - Active Patient is able to reach R Query Text:Reach Behind the Back side of hip, unable to reach
--- NOTE | 2020-12-13 09:51 | PTOPEVAL ---
PHYSICAL THERAPY EVALUATION AND PLAN OF CARE 12-13-20 Thank you for referring Leonardo Cabello to [facility].? He is scheduled to be seen for Physical Therapy? 2 x/week for 3 weeks. Please review, sign, date and return this plan of care PANCHO. I agree with and certify that the following plan of care is medically necessary. Referring Physician Date Attending Provider: Dr. Boy Oswald *PT Outpatient Evaluation Start: 12/13/20 09:03 Document 12/13/20 09:03 LOIS (Rec: 12/13/20 09:51 LOIS [id number]) Outpatient Past Medical History Past Medical History Source of Past Medical History Recalled from Previous Visit, Confirmed with Patient/Family Neurological History Hx Cerebrovascular Accident (CVA) Yes: 2019 x 2, with R side affected Cardiovascular History Hx Hypercholesterolemia Yes: meds Hx Hypertension Yes: meds Respiratory History Hx Respiratory Disorders No Significant History Gastrointestinal History Hx Appendectomy Yes Hx Cholecystectomy Yes Genitourinary History Hx Kidney Stones Yes Musculoskeletal History Hx Gout Yes Hx Rheumatoid Arthritis Yes: back, knees, shoulders Hematological History Hx Hematological Disorders No Significant History Endocrine History Hx Diabetes Yes: meds HEENT History Hx Tonsillectomy Yes Reproductive History Hx Reproductive Disorders No Significant History Psychosocial History Hx Psychiatric Disorders No Significant History Pain History History of Any Previous or Ongoing No Significant History Instance of Pain Anesthesia History Hx Anesthesia Reactions No Significant History Evaluation Information Problem Diagnosis s/p CVA Onset October 2020 Subjective Information gradual increase in weakness; Query Text:As Reported By Patient/ have had 2 falls, due to R Family foot catching, when walking; required to assist and lift him up; also have R knee pain; Previous Treatments Previous Treatments For This Problem previous PT here, multiple times after CVA Prior Level of Function Activity Level (Last 3 Months) Occupation disabled- not working due to CVA Hand Dominance Right Laundry No Shopping No Driving No Home Setting Home Type House Environmental Barriers Ramp Living Situation With Spouse Support Available Local Family Support Mobility Assist
--- NOTE | 2020-12-22 12:59 | PCPTNOTE ---
Patient called & cancelled scheduled appointment this date due to having a Dr's appointment.
--- NOTE | 2020-12-24 09:53 | PCOTNOTE ---
Late note for visit 12/22: Patient called & cancelled therapy appt today due to having a drJosefina antony.
--- NOTE | 2021-01-03 15:09 | OTOPEVAL ---
OCCUPATIONAL THERAPY RE-EVALUATION REPORT 01/03/21 As described below, Leonardo has made progress with functional ROM and strength of the right shoulder, elbow, wrist and hand. Treatments the past few weeks have focused on more gross strengthening than distal fine motor coordination and strength, which this re-eval does show progress with areas of focus. Continued OT indicated for progression of exercises, continued land and aquatic tx for strengthening, manual therapy for stretching, and more sessions for fine motor control retraining. Aquatic sessions have been beneficial for Leonardo for use of warm water for tone and use of buoyancy for strengthening. Thank you for referring Leonardo Cabello to [facility].? The patient is scheduled to be seen for therapy? 2x/week for 3 weeks. Plan 1x/week land and 1x/week aquatic therapy. Please review, sign, date and return this plan of care PANCHO. I agree with and certify that the following plan of care is medically necessary. Referring Physician Date Referring Provider: Dr. Boy Oswald *OT Outpatient Evaluation Evaluation Information Problem Diagnosis s/p CVA Onset 2018 Additional Evaluation Detail Patient has participated in 3 weeks of OT, land and aquatic sessions, focused on improving gross strength of the right UE. He has been compliant with all materials. Subjective Information Leonardo reports improved Query Text:As Reported By Patient/ flexibility in the right UE, Family describing improvements in the shoulder and forearm since re-starting therapy 3 weeks ago. Pain Assessment Timing of Pain Assessment Timing of Pain Assessment Re-assessment Self Report Self Report Pain Level 0 Pain Score Pain Score 0: Self Report Upper Extremity Range of Motion Scapular/ Shoulder Range of Motion Right Reason Not Measured WNL/Left Shoulder Flexion - Active 110 Shoulder Extension - Active 60 Shoulder Abduction - Active 90 Shoulder Medial Rotation - Active Patient is able to reach R Query Text:Reach Behind the Back side of hip, unable to reach fully behind back. Shoulder Lateral Rotation - Active Patient is now able to reach Query Text:Reach Behind the Head ear. Only able to reach side of face at initial eval. Scapular/Shoulder Range of Motion Since the initial eval, pt's Comments shoulder has improved by 10* with flexion, 15* with extension, and remained the same with abduction (90*). Elbow/Forearm Range of Motion Right Reason Not Measured WNL/Left Elbow Flexion - Active 140 Elbow Extension - Active -20 Elbow Extension - Passive 0 Forearm Supination - Active 50
--- NOTE | 2021-01-03 15:19 | PTOPEVAL ---
PHYSICAL THERAPY DISCHARGE 01-03-21 Refer to the clinical summary below for his status today, compared to the initial evaluation. The goals were achieved for home exercise program and obtained a R AFO brace to decrease toe/foot drag. Thank you for referring Leonardo Cabello to [facility].? Please review, sign, date and return this PT discharge report PANCHO. I agree with and certify that the following plan of care is medically necessary. Referring Physician Date Attending Provider: Boy Oswald MD Document 01/03/21 14:48 LOIS (Rec: 01/03/21 15:18 LOIS [id number]) Assessment Status Discharge Subjective Information Leonardo reports: walking is Query Text:As Reported By Patient/ better, using knee and ankle Family brace, still slower than want it to be; no falls; when going out shopping, use electric cart; use cane only in the morning around the house, then once up, do not use anymore; doing leg exercises; Pain Assessment Timing of Pain Assessment Timing of Pain Assessment Assessment Self Report Self Report Pain Level 0 Pain Score Pain Score 0: Self Report Transfer Assessment Floor Transfer Assessment Ambulation Assistive Devices None Orthotic/Prosthetic Devices Right Lower Extremity Orthosis Sit to Floor Transfer Ability Minimum Assistance X 1 Floor to Stand Transfer Ability Minimum Assistance X 1 Cues Needed for Floor Transfer Tactile,Verbal Floor Transfer Comments use of UE's on mat and verbal cues for technique; discussed safety with transfer at home--use of chair, couch, to pull with UE's R knee hyperextension brace and AFO intact; Balance Assessment Time Up Go (TUG) Timed Up and Go Test (TUG) (Seconds) 19 Assistive Devices None Comments R knee hyper extension brace and AFO intact 5 Time Sit to Stand Time in Seconds 17 5 Time Sit to Stand Comments from 18 chair,use of L UE on Query Text:Normative Data: If Greater chair; increase WB on L LE; R Than 15 Seconds, 74% Increase Risk for knee hyperextension brace and Recurrent Falls AFO intact' Gait Assessment 2 Minute Walk Total Distance Walked (feet) 200 2 Minute Walk Gait Speed Score (feet/ 1.66 second) Number of Breaks Required 0 2 Minute Walk Test Comments with cane and R knee hyperextension and AFO brace; holds R LE with hip ER, trunk
--- NOTE | 2021-01-17 08:31 | PCOTNOTE ---
Patient called & cancelled scheduled appointment this date. No reason stated.
--- NOTE | 2021-01-20 08:31 | PCOTNOTE ---
Patient cancelled appointment today due to not feeling well.
--- NOTE | 2021-01-24 09:29 | OTOPEVAL ---
OCCUPATIONAL THERAPY RE-EVALUATION REPORT AND DISCHARGE SUMMARY Patient has reached a functional plateau with the right UE at this time. He is currently independent with all HEPs and understands why he is being discharged today. Thank you for referring Leonardo Cabello to [facility].? Please review, sign, date and return this D/C Note PANCHO. I agree with and certify that the following plan of care is medically necessary. Referring Physician Date Referring Provider: Dr. Boy Oswald *OT Outpatient Evaluation Evaluation Information Problem Diagnosis s/p CVA with right sided weakness Onset 2018 Subjective Information Patient states his progress is Query Text:As Reported By Patient/ slow , but he is progressing Family . Patient states he is now showering independently most of the time as his will sometimes help wash the left side of his body. He also states his exercises are getting easier for him. Pain Assessment Timing of Pain Assessment Timing of Pain Assessment Re-assessment Self Report Self Report Pain Level 0 Pain Score Pain Score 0: Self Report Upper Extremity Range of Motion Scapular/ Shoulder Range of Motion Right Reason Not Measured WNL/Left Shoulder Flexion - Active 110 Shoulder Extension - Active 60 Shoulder Abduction - Active 90 Shoulder Medial Rotation - Active Patient is able to reach R Query Text:Reach Behind the Back side of hip, unable to reach fully behind back. Shoulder Lateral Rotation - Active Patient is able to reach right Query Text:Reach Behind the Head ear. Scapular/Shoulder Range of Motion Since his last assessment on , there have been no changes in shoulder active ROM . Since the initial eval on 12/13, pt's shoulder has improved by 10* with flexion, 15* with extension, and remained the same with abduction (90*). Elbow/Forearm Range of Motion Right Reason Not Measured WNL/Left Elbow Flexion - Active 140 Elbow Extension - Active -20 Elbow Extension - Passive 0 Forearm Supination - Active 50 Forearm Pronation - Active 60 Elbow/Forearm Range of Motion Muscle Weakness Limitations Elbow/Forearm Range of Motion Comments Since the last reassessment on 01/03/21, there have been no
== END 2021-01-25 09:04 | disposition home or self-care (01) ==
LOC: ANHOT 08:30
PROVIDERS: PCP Registered Nurse
DX: I63.50 Cerebral infarction due to unspecified occlusion or stenosis of unspecified cerebral artery (principal)
CPT/HCPCS: 97110; 97113; 97161; 97165

== ENCOUNTER 2021-10-07 15:01 | Outpatient (CLI) | payer OTHER, SELFPAY ==
[2021-10-07 15:50] LABS: Alanine Aminotransferase 25 U/L (4-50); Albumin Level 4.4 g/dL (3.5-5.1); Alkaline Phosphatase 124 U/L (38-126); Aspartate Amino Transferase 25 U/L (17-59); Bilirubin,Total 0.7 mg/dL (0.2-1.3)
== END 2021-10-07 15:02 | disposition home or self-care (01) ==
LOC: ANHLAB 15:05
PROVIDERS: PCP Registered Nurse; Visit Provider Registered Nurse
DX: K76.89 Other specified diseases of liver (principal)
CPT/HCPCS: 36415; 80076

== ENCOUNTER 2021-11-22 16:00 | Outpatient (RCR) | payer OTHER, SELFPAY ==
[2021-10-17 16:05] VITALS: BP_SYST 90
--- NOTE | 2021-10-17 17:25 | PTOPEVAL ---
Thank you for referring Leonardo Cabello to [facility].? The patient is scheduled to be seen for therapy? 1x/week for 5 weeks. Please review, sign, date and return this plan of care PANCHO. I agree with and certify that the following plan of care is medically necessary. Referring Physician Date Attending Provider: Samy Lewis Outpatient Past Medical History Past Medical History Source of Past Medical History Recalled from Previous Visit, Confirmed with Patient/Family Neurological History Hx Cerebrovascular Accident (CVA) Yes: 2019 x 2, with R side affected Cardiovascular History Hx Hypercholesterolemia Yes: meds Hx Hypertension Yes: meds Respiratory History Hx Respiratory Disorders No Significant History Gastrointestinal History Hx Appendectomy Yes Hx Cholecystectomy Yes Genitourinary History Hx Kidney Stones Yes Musculoskeletal History Hx Gout Yes Hx Rheumatoid Arthritis Yes: back, knees, shoulders Hematological History Hx Hematological Disorders No Significant History Endocrine History Hx Diabetes Yes: meds HEENT History Hx Tonsillectomy Yes Reproductive History Hx Reproductive Disorders No Significant History Psychosocial History Hx Psychiatric Disorders No Significant History Pain History History of Any Previous or Ongoing No Significant History Instance of Pain Anesthesia History Hx Anesthesia Reactions No Significant History Evaluation Information Problem Diagnosis CVA Onset 2 yrs Additional Evaluation Detail He received botox injection into his UE 2-3wks ago, no LE injections. He uses a cane and turkish cage knee brace. He had a wristing hand splint for right UE, but it broke. Subjective Information He wants his right UE arm and Query Text:As Reported By Patient/ finger to function and move Family better. Per pt he requires assistance with ADL's. He amb with cane and knee brace but has had 4-5 falls in the past 6 months. He requires assistance of family to get off the floor with his falls. States he performs UE ex, but his theraband broke. He does not perform exercises for his leg. He lives in a mobile home and
--- NOTE | 2021-11-01 16:39 | PCPTNOTE ---
Patient did not show up for scheduled appointment this date.
--- NOTE | 2021-11-15 16:31 | OTOPEVAL ---
OCCUPATIONAL THERAPY EVALUATION REPORT AND DISCHARGE SUMMARY 11/15/21 Leonardo presents today for a fabrication of a new resting hand splint due to his old one cracking a breaking. A well fitting, custom resting hand orthosis was fabricated today to hold the right wrist in neutral with fingers and thumb extended. This has helped him over the last 2 years maintain functional finger and thumb extension. He demonstrates excellent understanding of orthotic wear schedule and is independent with don/doffing. No further skilled OT indicated at this time. Thank you for referring Leonardo Cabello to [facility].? Please review, sign, date and return this D/C Note PANCHO. I agree with and certify that the following plan of care is medically necessary. Referring Physician Date Referring Provider: Samy Lewis MD *OT Outpatient Evaluation Start: 11/15/21 15:47 Outpatient Past Medical History Past Medical History Source of Past Medical History Recalled from Previous Visit, Confirmed with Patient/Family Neurological History Hx Cerebrovascular Accident (CVA) Yes: 2019 x 2, with R side affected Cardiovascular History Hx Hypercholesterolemia Yes: meds Hx Hypertension Yes: meds Respiratory History Hx Respiratory Disorders No Significant History Gastrointestinal History Hx Appendectomy Yes Hx Cholecystectomy Yes Genitourinary History Hx Kidney Stones Yes Musculoskeletal History Hx Gout Yes Hx Rheumatoid Arthritis Yes: back, knees, shoulders Hematological History Hx Hematological Disorders No Significant History Endocrine History Hx Diabetes Yes: meds HEENT History Hx Tonsillectomy Yes Reproductive History Hx Reproductive Disorders No Significant History Psychosocial History Hx Psychiatric Disorders No Significant History Pain History History of Any Previous or Ongoing No Significant History Instance of Pain Anesthesia History Hx Anesthesia Reactions No Significant History Evaluation Information Problem Diagnosis s/p CVA Subjective Information Patient presents today for a Query Text:As Reported By Patient/ new resting hand splint as his Family cracked and broke. His original one was fabricated ~2 years ago. He is very compliant with daily use. Pain Assessment Self Report Self Report Pain Level 0 Pain Score Pain Score 0: Self Report Splint/Brace/Cast Assessment Splint and Bracing Assessment Right Hand Fabrication Clinician Made Splint/Brace/Cast Type Resting Hand Reason For Splint/Brace/Cast Inhibit Tone,Optimal Positioning,Prevent Deformities Schedule At Night, As Tolerate
[2021-11-22 15:57] VITALS: BP_SYST 120
--- NOTE | 2021-11-25 09:48 | PTOPEVAL ---
Physical Therapy Discharge Summary Thank you for referring Leonardo Cabello to [facility].?Leonarod has attended 5 therapy visits to address his chronic functional impairments related to his CVA. As result of skilled therapy services he demonstrates improved functional mobility, progression of his HEP and understanding of importance of mobility task. He has reached maximal potential with skilled therapy services at this time. Will DC skilled PT services. Please review, sign, date and return this discharge summary PANCHO. I agree with and certify that the following plan of care is medically necessary. Referring Physician Date Attending Provider: Samy Lewis MD Diagnosis s/p CVA Onset 2 yrs Additional Evaluation Detail He received botox injection into his UE 2-3wks ago, no LE injections. He uses a cane and uruguayan cage knee brace. Subjective Information He does feel he is walking a Query Text:As Reported By Patient/ little better with therapy. Family Pain Assessment Timing of Pain Assessment Timing of Pain Assessment Re-assessment Self Report Self Report Pain Level 0 Pain Score Pain Score 0: Self Report Upper Extremity Range of Motion Scapular/ Shoulder Range of Motion Right Shoulder Flexion - Active 90 Shoulder Flexion - Passive 120 Shoulder Abduction - Active 80 Shoulder Abduction - Passive 120 Scapular/Shoulder Range of Motion Muscle Tone Limitations Scapular/Shoulder Range of Motion scaption vs flex Comments Transfer Assessment Floor Transfer Assessment Ambulation Assistive Devices None Floor Transfer Destination Mat Sit to Floor Transfer Ability Independent Floor to Sit Transfer Ability Independent Stand to Floor Transfer Ability Independent Floor to Stand Transfer Ability Independent Floor Transfer Ability Independent Balance Assessment CAZARES Balance Evaluation Total Score (46/56 points) Time Up Go (TUG) Timed Up and Go Test (TUG) (Seconds) 14 Assistive Devices None 5 Time Sit to Stand Time in Seconds 13 5 Time Sit to Stand Comments wide BUBBA, decreased WB on right LE Gait Assessment Gait Pattern Assessment Gait Pattern Circumducted Gait,Spastic Gait ,Step-to Gait,Wide Based Gait Gait Pattern Observed Decreased Stride Length - Left ,Decreased Weight Shift - Right,Hyperextended Knee - Right,No Heel Strike - Left,No Heel Strike - Right Other Gait Observations right side of body retracted with increased flexor tone of
== END 2021-11-25 12:43 | disposition home or self-care (01) ==
LOC: ANHPT 16:00
PROVIDERS: PCP Registered Nurse
DX: M62.838 Other muscle spasm (principal)
CPT/HCPCS: 97110; 97163; 97165; 97530; L3806

== ENCOUNTER 2021-12-31 09:57 | Outpatient (CLI) | payer MEDICARE, SELFPAY ==
[2021-12-31 10:51] LABS: Anion Gap 7 mmol/L (8-16); Blood Urea Nitrogen 13 mg/dL (9-20); Carbon Dioxide 28 mmol/L (22-30); Chloride 105 mmol/L (98-107); Cholesterol 112 mg/dL (0-200); Estimated Glomerular Filt Rate > 60; Glucose 150 mg/dL (65-110); HDL Direct 32 mg/dL; Potassium 4.6 mmol/L (3.4-5.0); Sodium 140 mmol/L (137-145); Triglycerides 177 mg/dL (<150)
[2021-12-31 11:02] LABS: LDL Cholesterol Direct 35 mg/dL
== END 2021-12-31 09:58 | disposition home or self-care (01) ==
PROVIDERS: PCP Registered Nurse
DX: I10 Essential (primary) hypertension (principal); E78.2 Mixed hyperlipidemia
CPT/HCPCS: 36415; 80048; 80061

== ENCOUNTER 2022-03-11 09:22 | Outpatient (CLI) | payer MEDICARE, SELFPAY ==
[2022-03-11 09:55] LABS: Anion Gap 7 mmol/L (8-16); Blood Urea Nitrogen 12 mg/dL (9-20); Calcium 9.2 mg/dL (8.4-10.2); Carbon Dioxide 30 mmol/L (22-30); Chloride 104 mmol/L (98-107); Estimated Glomerular Filt Rate > 60; Glucose 155 mg/dL (65-110); Sodium 141 mmol/L (137-145)
[2022-03-11 09:57] LABS: Appearance Urine Clear (Clear); Bilirubin Urine Negative (Negative); Blood Urine Negative (Negative); Color Urine Yellow (Yellow); Glucose Urine UA 2+ mg/dL (Negative); Ketones Urine Negative (Negative); Leukocyte Esterase Ur Negative LEU/UL (NEGATIVE); Mucus Urine Rare /lpf; Nitrate Urine Negative (Negative); Protein Urine 2+ mg/dL (Negative); Specific Grav Ur 1.025 (1.001-1.035); Squamous Epithelial Cell Urine Rare /hpf (Few); Urobilinogen Urine 0.2 mg/dL (<2.0); WBC Urine 0-3 /hpf (0-3); pH Urine 5.5 (5.0-9.0)
[2022-03-11 09:58] LABS: Add Urine Microscopic? YES
[2022-03-11 10:19] LABS: Creatinine Urine 51.9 mg/dL
[2022-03-11 10:38] LABS: Microalbumin Urine Random 458.3 mg/L (0-16.7)
== END 2022-03-11 09:23 | disposition home or self-care (01) ==
PROVIDERS: PCP Registered Nurse; Visit Provider Internal Medicine Nephrology
DX: E11.21 Type 2 diabetes mellitus with diabetic nephropathy (principal)
CPT/HCPCS: 36415; 80048; 81001; 82043

== ENCOUNTER 2023-01-19 16:27 | Outpatient (CLI) | payer MEDICARE, MEDICAID, SELFPAY ==
--- NOTE | ~2023-01-19 | US_ITS ---
Duplex Sonography of the bilateral lower extremities: Indication: Pain Sagittal and transverse B-mode images as well as color-flow imaging were performed on the right and l eft femoral and popliteal veins. B-mode examination was done without and with compression in the tra nsverse plane. There is good visualization of the bilateral common femoral, proximal profunda femora l, superficial femoral, greater saphenous, and popliteal veins. Normal flow was seen on color-flow im aging. Normal compressibility was demonstrated. Bilateral peroneal and posterior tibial veins are al so patent. Impression: No evidence of deep vein thrombosis involving either lower extremity. Reviewed, dictated and finalized at location M. Impression: No evidence of deep vein thrombosis involving either lower extremit y.
== END 2023-01-19 16:28 | disposition home or self-care (01) ==
PROVIDERS: PCP Registered Nurse; Visit Provider Registered Nurse
DX: R25.2 Cramp and spasm (principal); M79.672 Pain in left foot
CPT/HCPCS: 93970

== ENCOUNTER 2023-07-27 15:00 | Outpatient (RCR) | payer MEDICARE, MEDICAID, SELFPAY ==
--- NOTE | 2023-07-10 09:51 | BUOTOPEVAL ---
Assessment and note entered by Dejon Nova, CAMDEN/Roxana, CHT Evaluation Information Assessment Status Evaluation Diagnosis R29.898 Subjective Information Patient referred to OT for right hand splint. He has chronic right sided weakness, tone, and tightness from an old CVA. Reported Pain Level Pain Score 0: Self Report Assessment OT Clinical Summary Patient referred to outpatient OT for splinting. He has chronic right sided tightness, tone, and weakness from an old CVA. Began the process of fabricating a custom resting hand splint for the right UE. Will need the patient to follow up for another appointment to complete. Continued skilled OT indicated for custom splinting and splint adjustments PRN. Plan of Care Interventions Therapeutic Exercise,Check Out for Orthotic/Pr OT Services Indicated Yes Treatment Frequency and 0-1x/week for 4 weeks Duration These treatments will address the objective and functional deficits as defined above. The patient will be advanced safely and appropriately in order for the patient to progress towards his/her prior level of function. Additional exercises will be introduced and as well as a comprehensive home exercise program upon discharge, if needed, ?to ensure carryover of functional gains achieved in the clinic. This treatment plan has been reviewed and agreement upon by the patient.
--- NOTE | 2023-08-08 08:10 | OTOPDC ---
Assessment and note entered by CAMDEN Kapoor/Roxana, CHT Discharge Summary 08/08/23 OT Clinical Summary Patient referred to outpatient OT for fabrication of a custom resting hand splint for his right hand. He has chronic right sided deficits from a CVA in 2019, including weakness and tone. The resting hand splint has been fabricated and issued. Patient reports comfortable fit with the fingers in extension and the wrist in neutral. He is able to don independently. No further skilled OT indicated at this time. Discharging with goals met. Plan of Care OT Services Indicated No
== END 2023-08-08 14:06 | disposition home or self-care (01) ==
LOC: ANHOT 15:00
PROVIDERS: PCP Registered Nurse; Visit Provider Registered Nurse
DX: R29.898 Other symptoms and signs involving the musculoskeletal system (principal)
CPT/HCPCS: 97165; 97763; L3806

== ENCOUNTER 2024-03-20 18:48 | Emergency (ER) | payer MEDICARE, MEDICAID, SELFPAY ==
[2024-03-20 18:56] VITALS: BP 123/74; PULSE 75; RESP 16; TEMP 36.3; O2SAT 98
[2024-03-20 19:05] VITALS: BP 123/74; PULSE 75; RESP 16; TEMP 36.3; O2SAT 98
[2024-03-20] MEDS: LIDOCAINE HCL 1% LOCAL INJ 2 ML AMPUL 6 ML INFILTRATE (19:35)
--- NOTE | 2024-03-20 19:51 | ED.WOUNDLAC ---
HPI - Wound/Laceration General Chief Complaint: Wound/Laceration Stated Complaint: cut left hand with turbinated bone grinder Time Seen by Provider: 03/20/24 19:13 Source: patient, RN notes reviewed and old records reviewed Mode of arrival: ambulatory Limitations: no limitations History of Present Illness HPI narrative: Patient with right-sided weakness secondary to stroke several years ago presents with laceration to palm of left hand. 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 Injury happened just prior to arrival. He reports good sensation to the affected hand. He does retain full range of motion. He denies other injury and trauma. He reports that he just had a tetanus shot 3 months ago. The bleeding is controlled upon arrival. Patient tetanus UTD: Yes Context: accidental Related Data Home Medications Medication Instructions Recorded Confirmed aspirin 81 mg tablet,delayed 81 mg PO DAILY 08/10/19 08/10/19 release atorvastatin 40 mg tablet 40 mg PO DAILY 08/10/19 08/10/19 cetirizine 10 mg tablet 10 mg PO DAILY 08/10/19 08/10/19 clopidogrel 75 mg tablet 75 mg PO DAILY 08/10/19 08/10/19 doxazosin 4 mg tablet 4 mg PO DAILY 08/10/19 08/10/19 glyburide 5 mg tablet 5 mg PO DAILY 08/10/19 08/10/19 lisinopril 20 mg tablet 20 mg PO DAILY 08/10/19 08/10/19 metoprolol succinate 100 mg 100 mg PO DAILY 08/10/19 08/10/19 tablet,extended release 24 hr sitagliptin phosphate 100 mg 100 mg PO DAILY 08/10/19 08/10/19 tablet (Januvia) semaglutide 0.25 mg or 0.5 mg (2 mg subcut 03/20/24 mg/3 mL) subcutaneous pen injector (Ozempic) Allergies Allergy/AdvReac Type Severity Reaction Status Date / Time No Known Allergies Allergy Verified 03/20/24 19:04 Review of Systems Review of Systems: All systems reviewed & are unremarkable except as noted in HPI and below Constitutional: Constitutional: Reports no additional constitutional complaints ENT: Reports system reviewed and no additional complaints, except as documented Cardiovascular: Cardiovascular: Reports no additional cardiovascular complaints Respiratory: Respiratory: Reports no additional respiratory complaints Gastrointestinal: Gastrointestinal: Reports no additional gastrointestinal complaints Integumentary/Breasts: Skin/Breast: Reports as per HPI [facility] Past Medical History Medical History Arthritis bilateral shoulders Cerebrovascular accident CVA (cerebral vascular accident) DVT prophylaxis Hyperlipidemia Hypertension Kidney stones Peripheral neuropathy Type 2 diabetes mellitus Surgical History Surgical History H/O cystoscopy with stent H/O inguinal hernia repair History of cardiac cath Family History Family History Mother Diabetes mellitus Coronary artery disease Father Diabetes mellitus Social History Social History Smoking status: Former smoker Alcohol intake: never Substance use: never Living arrangements: with family Gender identity (if verbalized by the patient): Male Spiritual care concerns: No Agree to blood products: Yes Comments At the time of my signature, I reviewed and agree with the nursing past medical, surgical, social, and family history. There is no relevant family history pertinent to the patient complaint. Exam Const: General: cooperative, no acute distress, alert and awake Orientation/consciousness: oriented to person, oriented to place and oriented to time HENMT: Head: normal to inspection Resp: Effort & Inspection: normal respiratory effort and able to speak in complete sentences Skin: General skin exam: laceration (Laceration noted to palm of left hand just proximal to the thumb) Neuro: General: oriented to person, oriented to place and orie
== END 2024-03-20 20:05 | disposition home or self-care (01) ==
PROVIDERS: Emergency Provider Nurse Practitioner Family; PCP Registered Nurse
DX: S61.412A Laceration without foreign body of left hand, initial encounter (principal); W29.8XXA Contact with other powered hand tools and household machinery, initial encounter; Z87.891 Personal history of nicotine dependence; M19.012 Primary osteoarthritis, left shoulder; M19.011 Primary osteoarthritis, right shoulder; I69.351 Hemiplegia and hemiparesis following cerebral infarction affecting right dominant side; E78.5 Hyperlipidemia, unspecified; I10 Essential (primary) hypertension; E11.42 Type 2 diabetes mellitus with diabetic polyneuropathy; Z79.82 Long term (current) use of aspirin
CPT/HCPCS: 12001; 99213; G0463

== ENCOUNTER 2025-09-28 14:33 | Emergency (ER) | payer MEDICARE, SELFPAY ==
--- NOTE | ~2025-09-28 | XR_ITS ---
XR foot LT min 3V INDICATION: pain/swelling of midfoot . COMPARISON: None. FINDINGS: Frontal, lateral and oblique views of the left foot demonstrate no acute fracture or dislocation. IMPRESSION: No acute fracture or dislocation. Reviewed, dictated and finalized at location S. [facility]
--- OUTSIDE RECORDS SUMMARY | 2025-09-28 14:47 | XMS_ITS | Clinical Summary ---
Author Organization [facility] Address [address] [place] [address] Care Team Providers Care Press Breaker Name Role Phone Josué Aguilar CNP Primary Care Provider Olayinka Espinoza MD Unavailable [phone] Allergies Active Allergy Reactions Criticality Noted Date Comments Amlodipine Swelling Medium 08/15/2023 In legs, ankles, feet. Medications aspirin (SB LOW DOSE ASA EC) 81 MG Tab EC Take 1 tablet (81 mg total) by mouth daily. 5 Active sitagliptan (JANUVIA) 100 MG tablet Take 1 tablet (100 mg total) by mouth daily. 5 Active metoprolol succinate 100 MG 24 hr tablet Take 1 tablet (100 mg total) by mouth daily. 30 tablet 8 7 Active atorvastatin 40 MG tablet Take 1 tablet (40 mg total) by mouth daily. 8 Active metFORMIN 1000 MG tablet Take 1 tablet (1,000 mg total) by mouth 2 (two) times daily. 1 Active FLUoxetine 20 MG tablet 1 Active JARDIANCE 25 MG tablet Take 1 tablet (25 mg total) by mouth daily. 2 Active oxybutynin XL (DITROPAN-XL) 5 MG 24 hr tablet Take 1 tablet every day by oral route. 4 Active OZEMPIC 1 mg/dose injection (PEN) Inject 1 mg every week by subcutaneous route, for DM2. Active tiZANidine (ZANAFLEX) 4 MG tablet Take 1 tablet every 6 hours by oral route, for spasticity/muscl e spasm. Active lisinopril (PRINIVIL) 20 MG tablet Take 1 tablet by mouth twice daily 180 tablet Active hydroCHLOROthia zide (HYDRODIURIL) 25 MG tablet TAKE 1 TABLET BY MOUTH IN THE MORNING 90 tablet 1 Active Active Problems Problem Noted Date Diagnosed Date Acute gastritis 11/12/2024 Disorder of nail 11/12/2024 Gastroesophageal reflux disease 11/12/2024 Hip pain 11/12/2024 Nocturia 11/12/2024 Obesity 11/12/2024 Osteoarthrosis 11/12/2024 Type 2 diabetes mellitus without complication Vitiligo 11/12/2024 Coronary atherosclerosis 11/12/2024 Essential hypertension 11/12/2024 Diabetic peripheral neuropat hy associated with type 2 diabetes mellitus 09/07/2024 Incontinence of feces 10/31/2023 Overactive bladder 10/31/2023 Major depressive disorder 01/11/2023 Weakness of right hand 01/11/2023 Lumbar spondylosis 03/09/2022 Benign prostatic hyperplasia without urinary obs truction 12/04/2021 Chronic kidney disease 12/04/2021 Abnormal liver function 09/12/2021 Vitamin D deficiency 09/12/2021 Diverticulosis of colon 06/21/2021 Internal hemorrhoids 06/21/2021 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 Reid Tubular adenoma of colon 05/17/2017 Overview (11/12/2024): Next colonoscopy June 2026 CAD (coronary artery disease) 03/15/2016 Hypertension 03/15/2016 Hyperlipidemia 03/15/2016 Diabetes mellitus 03/15/2016 Family History Medical History Relation Comments CABG Brother Diabetes Father Diabetes Mother Heart Disease Mother Relation Status Comments Brother Father Mother Social History Tobacco Use Types Packs/Day Years Used Date Smoking Tobacco: Never Smokeless Tobacco: Never Tobacco Cessation:Counseling Given: Not Answered Alcohol Use Standard Drinks/Week Comments No 0 (1 standard drink = 0.6 oz pur e alcohol) Sex and Gender Information Value Date Recorded Sex Assigned at Male 11/12/2024 2:54 PM RURAL SOCIOLOGIST Legal Sex Male 12:14 AM CDT Gender Identity Not on file Sexual Orientation Not on file 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 Not on file Not on file Not on file Last Filed Vital Signs Vital Sign Reading Time Taken Comments Blood Pressure 110/80 11/12/2024 3:05 PM [employer] SOCI[employer] Pulse 82 11/12/2024 3:05 PM [employer] SOCI[employer]IST Temperature 36.6 C (97.8 F) 10/24/2019 5:04 PM R[employer] SOCI[employer]IST Respiratory Rate 20 10/24/2019 7:03 PM RURAL SOCIOLOGIST Oxygen Saturation 97% 11/12/2024 3:05 PM RURAL SOCIOLOGIST Inhaled Oxygen Concentration - - Weight 70.8 kg (156 lb) 11/12/2024 3:05 PM RURAL SOCIOLOGIST Height 157.5 cm (5' 2) 11/12/2024 3:05 PM RURAL SOCIOLOGIST Body Mass Index 28.53 11/12/2024 3:05 PM RURAL SOCIOLOGIST Plan of Treatment Upcoming Encounters Date Type Department Care Team (Late st Contact Info) Description 11/18/2025 3:00 PM RURAL SOCIOLOGIST Office Visit [facility] [address] [place] [address] Olayinka Espinoza MD [facility] [address] [place], [place] [id number] Health Maintenance Due Date Last Done Comments ASCVD Statin 1966 Colorectal Cancer Screening Colonoscopy (10 Years) 1966 Kidney Health Evaluation 1966 Annual Physical 1969 Diabetes: Retinopathy Eye Exam 1984 Hepatitis C 1984 Hepatitis A Vaccines (1 of 2 - Risk 2-dose series) 1985 Hemoglobin A1C 05/20/2020 11/20/2019, 10/01, 12/22/2016 DTaP, Tdap and Td Vaccines (2 - Td or Tdap) 08/03/2024 08/03/2014 COVID-19 Vaccine ( - season) 2025 02/03/2022, 03/07/2021, 02/12/2021 ASCVD LDL 06/11/2025 06/11/2024, 04/0 11/2021, 01/01/2021, Additional history exists Lipid Panel 06/11/2025 06/11/2024, 04/0 11/2021, 01/01/2021, Additional history exists Influenza Adult (#1) 2025 06/09/2024, 09/04/2022, 06/15/2021, Additional history exists Zoster Vaccines Completed 11/29/2022, 06/02/2022 Pneumococcal Vaccine: 50+ Years Completed 05/11/2023, 09/13/2021, 08/01/2004 Meningococcal B Vaccine Aged Out No l onger eligible based on patient's age to complete this topic Meningococcal Vaccine Aged Out No criss rekha eligible based on patient's age to complete this topic RSV Immunizations Under 20 Months Aged Out No longer eligible based on patient's age to complete this topic Procedures Procedure Name Priority Date/Time Associated Diagnosis Comments LIPID PANEL Routine 06/11/2024 HEMOGLOBIN GLYCOSYLATED A1C Routine 11/20/2019 from Last 3 Months or Most Recently Relevant to Health Maintenance Results * LIPID PANEL (06/11/2024) CHOLESTEROL 116 HDL 34 TRIGLYCERIDES 254 LDL (CALCULATED) 43 06/11/2024 us Default History Genericprovider LABORATORY Final Result * HEMOGLOBIN, GLYCOSYLATED (11/20/2019) HGB A1C 7.2 % 11/20/2019 us Doc [facility] LABORATORY Final Result from Last 3 Months or Most Recently Relevant to Health Maintenance [facility] [address] MEDICARE Care Teams Press Breaker Relationship Specialty Start Date End Date Josué Aguilar CNP PCP - General NURSE PRACTITIONER 03/15/16 Olayinka Espinzoa MD [facility] [address] [place] [address] [employer]ahra Teletype Mechanic CARDIOVASCULAR DISEASE 11/02/17
--- OUTSIDE RECORDS SUMMARY | 2025-09-28 14:47 | XMS_ITS | Data Portability ---
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 Plan of Treatment Reminders Order Date Submit Date Provider Last Modified By Organization Details Last Modified Time Details Appointments ANY 30 2025 03:15P TITI Anton-Varsha Not available Not available Not available Lab HbA1c (hemog lobin A1c), blood 2024 025 [email or web address] In-Office Order, Internal Use Only DO Not Attach Compendium DO Not Attach Compendium, Do Not Delete/merge, 07/22/2025 16:38:43 glucos e, finger stick, blood 2024 025 In-Office Order, Internal Use Only DO Not Attach Compendium DO Not Attach Compendium, Do Not Delete/merge, 07/22/2025 16:38:44 PSA, total, serum or plasma 2024 025 ROSIO [facility], [address] [facility], [address], [place], [address], 07/23/2025 08:32:52 urinal ysis, dipsti ck, reflex micro [address] [facility], [address] [place] [address], [address], [place], [address], 04/24/2025 16:14:17 TSH, ultra- sensit rosamaria, serum [address] [facility], [address] [place] [address], [address], [place], [address], 04/24/2025 16:14:18 CMP, serum or plasma [address] [facility], [address] [place] [address], [address], [place], [address], 04/24/2025 16:14:15 lipid panel, serum 2024 [facility], [address] [place] [address], [address], [place], [address], 04/24/2025 16:14:14 albumi n/crea tinine , mass ratio, urine [address] [facility], [address] [place] [address], [address], [place], [address], 04/24/2025 16:14:13 PSA, total, serum or plasma [address] [facility], [address] [place] [address], [address], [place], [address], 04/24/2025 16:14:20 glucos e, finger stick, blood 2024 025 apolonia In-Office Order, Internal Use Only DO Not Attach Compendium DO Not Attach Compendium, Do Not Delete/merge, [id number] 04/20/2025 17:30:51 HbA1c (hemog lobin A1c), blood 2024 025 apolonia In-Office Order, Internal Use Only DO Not Attach Compendium DO Not Attach Compendium, Do Not Delete/merge, [id number] 04/20/2025 17:30:51 albumi n/crea parvizine , mass ratio, urine 2024 025 [employer] [facility], [address], [address], [place], [place], [address], 04/23/2025 10:26:43 lipid panel, serum 2024 025 [facility], [address] [facility] [address], [address], [place], [address], 04/23/2025 10:26:52 CMP, serum or plasma 2024 025 [employer] [facility], [address] [facility] [address], [address], [place], [address], 04/23/2025 10:27:04 TSH, ultra- sensit rosamaria, serum 2024 025 [facility], [address] [facility] [address], [address], [place], [address], 04/23/2025 10:27:14 urinal ysis, dipsti ck, reflex micro 2024 025 [employer] [facility], [address] [facility], [address], [place], [address], 04/23/2025 10:27:28 PSA, total, serum or plasma 2024 025 [facility], [address] [facility] [address], [address], [place], [address], 04/23/2025 10:27:38 HbA1c (hemog lobin A1c), blood 2023 024 apolonia In-Office Order, Internal Use Only DO Not Attach Compendium DO Not Attach Compendium, Do Not Delete/merge, [id number] 09/08/2024 16:35:19 glucos e, finger stick, blood 2023 024 apolonia In-Office Order, Internal Use Only DO Not Attach Compendium DO Not Attach Compendium, Do Not Delete/merge, [id number] 09/08/2024 16:35:19 albumi n/crea tinine , mass ratio, urine 2023 024 ROSIO [facility], [address], [address], [place], [address], 09/09/2024 11:14:55 PTH (parat hyroid hormon e), intact , serum or plasma 2023 024 [facility], [address], [address], [place], [address], 09/09/2024 11:15:00 renal functi on panel, serum 2023 024 [facility], [address], [address], [place], [address], 09/09/2024 11:14:56 urinal ysis, comple te 2023 024 [facility], [facility] [address], [place], [address], 09/09/2024 11:14:59 Referral nephro logist referr al 2024 025 taqueria Khan MD, [address] [facility], [facility], [place], [address], 08/17/2025 10:00:01 urolog ist referr al 2024 025 [facility]eria [facility], [address], [place], [address], 08/17/2025 10:00:01 Procedures None record ed. Surgeries None record ed. Imaging XR, knee, 3 view 2024 [facility], [address], [place], [address], 09/16/2025 09:48:01 Medication Orders metfor min 1,000 mg tablet 2024 [facility], [address] [place] [address], [id number], 07/22/2025 16:39:01 Jardia nce 25 mg tablet 2024 [facility], [address] [place] [address], [id number], 07/22/2025 16:38:59 Ozempi c 1 mg/dos e (4 mg/3 mL) subcut aneous pen inject or 2024 [facility], [address] [place] [address], [id number], 07/22/2025 16:38:56 Glucos amine Chondr oitin Maximu m Streng th 500 mg-400 mg capsul e 2024 [facility], [address] [place] [address], [id number], 07/22/2025 16:38:56 Voltar en Arthri tis Pain 1 % topica l gel 2024 [facility], [address] [place] [address], [id number], 07/22/2025 16:38:58 metopr olol succin ate ER 100 mg tablet ,exten ded releas e 24 hr 2024 [facility], [address] [place] [address], [id number], 07/22/2025 16:39:00 oxybut ynin chlori de ER 5 mg tablet ,exten ded releas e 24 hr 2024 [facility], [address] [place] [address], [id number], 07/22/2025 16:39:04 atorva statin 40 mg tablet 2024 [facility], [address] [place] [address], [id number], 07/22/2025 16:38:57 fluoxe jo 20 mg tablet 2024 [facility] [address], [address] [place] [address], [id number], 07/22/2025 16:38:57 famoti dine 20 mg tablet 2024 [facility], [address] [place] [address], [id number], 07/22/2025 16:39:00 cetiri zine 10 mg tablet 2024 [facility], [address] [place] [address], [id number], 07/22/2025 16:39:01 Vitami n D3 25 mcg (1,000 unit) tablet 2024 [facility], [address] [place] [address], [id number], 07/22/2025 16:38:57 metfor min 1,000 mg tablet 2024 [facility], [address] [place] [address], [id number], 04/20/2025 17:31:05 Jardia nce 25 mg tablet 2024 [facility], [facility] [place], [address], 04/20/2025 17:30:58 Ozempi c 1 mg/dos e (4 mg/3 mL) subcut aneous pen inject or 2024 025 [facility], [address] [place] [address], [id number], 04/20/2025 17:30:59 metopr olol succin ate ER 100 mg tablet ,exten ded releas e 24 hr 2024 025 [facility], [address] [place] [address], [id number], 04/20/2025 17:31:02 oxybut ynin chlori de ER 5 mg tablet ,exten ded releas e 24 hr 2024 025 Pending sale to [facility], [address] [place] [address], [id number], 04/20/2025 17:31:16 atorva statin 40 mg tablet 2024 [facility], [address] [place] [address], [id number], 04/20/2025 17:31:04 fluoxe jo 20 mg tablet 2024 [facility], [address] [place] [address], [id number], 04/20/2025 17:31:04 famoti dine 20 mg tablet 2024 025 [facility], [address] [place] [address], [id number], 04/20/2025 17:31:02 cetiri zine 10 mg tablet 2024 025 [facility], [address] [place] [address], [id number], 04/20/2025 17:31:05 Vitami n D3 25 mcg (1,000 unit) tablet 2024 025 [facility], [address] [place] [address], [id number], 04/20/2025 17:31:01 fluoxe jo 20 mg tablet 2023 [facility], [address] [place] [address], [id number], 09/08/2024 16:35:34 famoti dine 20 mg tablet 2023 [facility], [address] [place] [address], [id number], 09/08/2024 16:35:35 cetiri zine 10 mg tablet 2023 [facility], [address] [place] [address], [id number], 09/08/2024 16:35:39 atorva statin 40 mg tablet 2023 [facility], [address] [place] [address], [id number], 09/08/2024 16:35:38 metfor min 1,000 mg tablet 2023 [facility], [address] [place] [address], [id number], 09/08/2024 16:35:36 Jardia nce 25 mg tablet 2023 024 [facility], [address] [place] [address], [id number], 09/08/2024 16:35:36 Ozempi c 1 mg/dos e (4 mg/3 mL) subcut aneous pen inject or 2023 [facility], [address] [place] [address], [id number], 09/08/2024 16:35:36 Vitami n D3 25 mcg (1,000 unit) tablet 2023 [facility], [address] [place] [address], [id number], 09/08/2024 16:35:38 tizani dine 4 mg tablet 2023 025 [facility], [address] [place] [address], [id number], 04/20/2025 17:28:25 oxybut ynin chlori de ER 5 mg tablet ,exten ded releas e 24 hr 2023 [facility], [address] [place] [address], [id number], 09/08/2024 16:35:39 metopr olol succin ate ER 100 mg tablet ,exten ded releas e 24 hr 2023 024 [facility], [address] [place] [address], [id number], 09/08/2024 16:35:36 Patient TargetsNo targets recorded. Patient Instructions Encounter Date Encounter Id Patient Instructions Last Modified By Organization Details Last Modified Time 09/08/2024 [id number] C mo evitar la recurrencia de la depresi n: Instrucciones de cuidado - [Preventing Depression From Coming Back: Care Instructions] [email or web address] Not available 09/08/2024 16:35:20 enfermedad de reflujo gastroesof gico (GERD): instrucciones de cuidado - [gastroesophageal reflux disease (GERD): care instructions] [email or web address] Not available 09/08/2024 16:35:19 colesterol alto: instrucciones de cuidado - [high cholesterol: care instructions] [email or web address] Not available 09/08/2024 16:35:19 A healthy lifestyle: care instructions [email or web address] Not available 09/08/2024 16:35:19 aprenda sobre la presi n arterial ashok - [learning about high blood pressure] [email or web address] Not available 09/08/2024 16:35:19 aprenda acerca d el peso saludable - [learning about healthy weight] [email or web address] Not available 09/08/2024 16:35:19 ndice de masa corporal: instrucciones de cuidado - [body mass index: care instructions] [email or web address] Not available 09/08/2024 16:35:19 you need to schedule with cards/chair mender yarauz Not available 09/08/2024 16:10:23 Uncontrolled Diabetes Mellitus complications , blindness, kidney failure, amputations etc. Take your diabetes medication daily check blood sugars fasting and post prandial --keep a log--bring to next appointment stop concentrated sugars--follow 1500 meal plan exercise 50-60 minutes daily on most days check your feet for sores, cuts, etc., see eye doctor once a year see dentist every 6 months Uncontrolled Hypertension potential risks, heart attack, , stroke, kidney failure etc. Hypertension is the silent Killer Take your Hypertension medication daily keep appointments stop concentrated sugars--follow 1500 meal plan exercise 50-60 minutes daily on most days see eye doctor once a year see dentist every 6 months discussed test results you will see urologist for ED and BPH-patient doesnt want to see Dr. Wilson-he saw Dr Arrington Test results you need to follow up with Fabric Worker Supervisor apolonia Not available 09/08/2024 16:31:35 04/20/2025 [id number] A healthy lifestyle: care instructions [email or web address] Not available 04/20/2025 17:30:51 aprenda sobre la presi n arterial ashok - [learning about high blood pressure] yarauz Not available 04/20/2025 17:30:51 colesterol alto: instrucciones de cuidado - [high cholesterol: care instructions] [email or web address] Not available 04/20/2025 17:30:51 C mo evitar la recurrencia de la depresi n: Instrucciones de cuidado - [Preventing Depression From Coming Back: Care Instructions] [email or web address] Not available 04/20/2025 17:30:51 enfermedad de reflujo gastroesof gico (GERD): instrucciones de cuidado - [gastroesophageal reflux disease (GERD): care instructions] [email or web address] Not available 04/20/2025 17:30:50 aprenda acerca d el peso saludable - [learning about healthy weight] [email or web address] Not available 04/20/2025 17:30:50 ndice de masa corporal: instrucciones de cuidado - [body mass index: care instructions] [email or web address] Not available 04/20/2025 17:30:51 you need to schedule with chair mender and urologist yarauz Not available 04/20/2025 17:40:11 Uncontrolled Diabetes Mellitus complications , blindness, kidney failure, amputations etc. Take your diabetes medication daily check blood sugars fasting and post prandial --keep a log--bring to next appointment stop concentrated sugars--follow 1500 meal plan exercise 50-60 minutes daily on most days check your feet for sores, cuts, etc., see eye doctor once a year see dentist every 6 months Uncontrolled Hypertension potential risks, heart attack, , stroke, kidney failure etc. Hypertension is the silent Killer Take your Hypertension medication daily keep appointments stop concentrated sugars--follow 1500 meal plan exercise 50-60 minutes daily on most days see eye doctor once a year see dentist every 6 months discussed test results you will see urologist for ED and BPH-patient doesnt want to see Dr. Wilson-he saw Dr Arrington Test results you need to follow up with Fabric Worker Supervisor yauz Not available 04/20/2025 17:21:37 05/19/2025 [id number] aprenda acerca d el peso saludable - [learning about healthy weight] yarauz Not available 05/19/2025 17:57:40 ndice de masa corporal: instrucciones de cuidado - [body mass index: care instructions] yarauz Not available 05/19/2025 17:57:40 called [employer] [facility] patient advised to make contact for delivery yarauz Not available 05/19/2025 18:02:30 07/22/2025 [id number] A healthy lifestyle: care instructions [email or web address] Not available 07/22/2025 16:38:44 aprenda sobre la presi n arterial ashok - [learning about high blood pressure] [email or web address] Not available 07/22/2025 16:38:43 C mo evitar la recurrencia de la depresi n: Instrucciones de cuidado - [Preventing Depression From Coming Back: Care Instructions] [email or web address] Not available 07/22/2025 16:38:43 enfermedad de reflujo gastroesof gico (GERD): instrucciones de cuidado - [gastroesophageal reflux disease (GERD): care instructions] Not available 07/22/2025 16:38:44 aprenda acerca d el peso saludable - [learning about healthy weight] [email or web address] Not available 07/22/2025 16:38:43 ndice de masa corporal: instrucciones de cuidado - [body mass index: care instructions] [email or web address] Not available 07/22/2025 16:38:44 Reason for Referral Fabric Worker Supervisor Referral for Ch ronic kidney disease Chronic kidney disease Referring Physician: Josué Victoria [facility], Encounter Date: 04/20/2025 Urologist Referral for Erect ile dysfunction Erectile dysfunction, unspecified erectile dysfunction type Referring Physician: Josué Victoria [facility], Encounter Date: 04/20/2025 Results Created Date Observation Date Name Description Value Unit Range Abnormal Flag Note LastModifiedBy Organization Detail LastModifiedTime 09/08/20 24 09/09/2024 ALBUM IN/CR EATIN INE RATIO ,URIN E creatinine, urine 41.9 mg/dL notest ab. Not Available [facility] ([facility]) [address] [place], [address], 09/09/2024 11:14:55 09/08/20 24 09/09/2024 ALBUM IN/CR EATIN INE RATIO ,URIN E albumin, urine 86.7 ug/mL notest ab. Not Available [facility] ([facility]) [address] [facility], [place], [address], 09/09/2024 11:14:55 09/08/20 24 09/09/2024 ALBUM IN/CR EATIN INE RATIO ,URIN E alb/creat ratio 207 mg/g_ creat 0-29 above high normal Jenniffer l: 0 - 29 Moder ately incre ased: 30 - 300 Sever rin incre ased: >300 Not Available [facility] ([facility]) [address] [facility] [place], [address], 09/09/2024 11:14:55 09/08/20 24 09/09/2024 RENAL PANEL (10) glucose 177 mg/dL 70-99 above high normal Not Available [facility] ([facility]) [address] [facility] [place], [address], 09/09/2024 11:14:56 09/08/20 24 09/09/2024 RENAL PANEL (10) BUN 17 mg/dL 6-24 Not Available [facility] ([facility]) [address] [place], [address], 09/09/2024 11:14:56 09/08/20 24 09/09/2024 RENAL PANEL (10) creatinine 0.65 mg/dL 0.76-1 .27 below low normal Not Available [facility] ([facility]) [address] [facility] [place], [address], 09/09/2024 11:14:56 09/08/20 24 09/09/2024 RENAL PANEL (10) eGFR 109 mL/mi n/1.7 3 >59 Not Available [facility] ([facility]) [address] [place], [address], 09/09/2024 11:14:56 09/08/20 24 09/09/2024 RENAL PANEL (10) BUN/creatini ne ratio 26 9-20 above high normal Not Available [facility] ([facility]) [address] [place], [address], 09/09/2024 11:14:56 09/08/20 24 09/09/2024 RENAL PANEL (10) sodium 138 mmol/ L 134-14 4 Not Available [facility] ([facility]) [address] [facility] [place], [address], 09/09/2024 11:14:56 09/08/20 24 09/09/2024 RENAL PANEL (10) potassium 4.8 mmol/ L 3.5-5. 2 Not Available [facility] ([facility]) [address] [place], [address], 09/09/2024 11:14:56 09/08/20 24 09/09/2024 RENAL PANEL (10) chloride 97 mmol/ L 96-106 Not Available [facility] ([facility]) [address] [facility] [place], [address], 09/09/2024 11:14:56 09/08/20 24 09/09/2024 RENAL PANEL (10) carbon dioxide, total 23 mmol/ L 20-29 Not Available [facility] ([facility]) [address] [facility] [place], [address], 09/09/2024 11:14:56 09/08/20 24 09/09/2024 RENAL PANEL (10) calcium 10.1 mg/dL 8.7-10 .2 Not Available [facility] ([facility]) [address] [facility] [place], [address], 09/09/2024 11:14:56 09/08/20 24 09/09/2024 RENAL PANEL (10) phosphorus 4.4 mg/dL 2.8-4. 1 above high normal Not Available [facility] ([facility]) [address] [facility] [place], [address], 09/09/2024 11:14:56 09/08/20 24 09/09/2024 RENAL PANEL (10) albumin 4.5 g/dL 3.8-4. 9 Not Available [facility] ([facility]) [address] [facility] [place], [address], 09/09/2024 11:14:56 09/08/20 24 09/09/2024 MICRO SCOPI C EXAMI NATIO N WBC 0-5 /hpf 0-5 Not Available [facility] ([facility]) [address] [facility], [place], [address], 09/09/2024 11:14:58 09/08/20 24 09/09/2024 MICRO SCOPI C EXAMI NATIO N RBC None seen /hpf 0-2 Not Available [facility] ([facility]) [address] [facility], [place], [address], 09/09/2024 11:14:58 09/08/2009/09/2024 MICRO SCOPI C EXAMI NATIO N epithelial cells (non renal) None seen /hpf 0-10 Not Available [facility] ([facility]) [address] [facility], [place], [address], 09/09/2024 11:14:58 09/08/20 24 09/09/2024 MICRO SCOPI C EXAMI NATIO N casts None seen /lpf nonese en Not Available [facility] ([facility]) [address] [facility], [place], [address], 09/09/2024 11:14:58 09/08/20 24 09/09/2024 MICRO SCOPI C EXAMI NATIO N bacteria None seen nonese en/few Not Available [facility] ([facility]) [address] [facility], [place], [address], 09/09/2024 11:14:58 09/08/20 24 09/09/2024 URINA LYSIS , COMPL ETE specific gravity 1.028 1.005- 1.030 Not Available [facility] ([facility]) [address] [facility], [place], [address], 09/09/2024 11:14:59 09/08/20 24 09/09/2024 URINA LYSIS , COMPL ETE pH 5.5 5.0-7. 5 Not Available [facility] ([facility]) [address] [facility], [place], [address], 09/09/2024 11:14:59 09/08/20 24 09/09/2024 URINA LYSIS , COMPL ETE urine-color YELLOW yellow Not Available [facility] ([facility]) [address] [facility], [place], [address], 09/09/2024 11:14:59 09/08/20 24 09/09/2024 URINA LYSIS , COMPL ETE appearance CLEAR clear Not Available [facility] ([facility]) [address] [facility], [place], [address], 09/09/2024 11:14:59 09/08/2009/09/2024 URINA LYSIS , COMPL ETE WBC esterase NEGATI VE negati ve Not Available [facility] ([facility]) [address] [facility], [place], [address], 09/09/2024 11:14:59 09/08/20 24 09/09/2024 URINA LYSIS , COMPL ETE protein TRACE negati ve/tra ce Not Available [facility] ([facility]) [address] [facility], [place], [address], 09/09/2024 11:14:59 09/08/20 24 09/09/2024 URINA LYSIS , COMPL ETE glucose 3+ negati ve abnormal Not Available [facility] ([facility]) [address] [facility], [place], [address], 09/09/2024 11:14:59 09/08/20 24 09/09/2024 URINA LYSIS , COMPL ETE ketones NEGATI VE negati ve Not Available [facility] ([facility]) [address] [place], [address], 09/09/2024 11:14:59 09/08/20 24 09/09/2024 URINA LYSIS , COMPL ETE occult blood NEGATI VE negati ve Not Available [facility] ([facility]) [address] [place], [address], 09/09/2024 11:14:59 09/08/20 24 09/09/2024 URINA LYSIS , COMPL ETE bilirubin NEGATI VE negati ve Not Available [facility] ([facility]) [address] [facility], [place], [address], 09/09/2024 11:14:59 09/08/20 24 09/09/2024 URINA LYSIS , COMPL ETE urobilinogen ,semi-qn 0.2 mg/dL 0.2-1. 0 Not Available [facility] ([facility]) [address] [facility], [place], [address], 09/09/2024 11:14:59 09/08/20 24 09/09/2024 URINA LYSIS , COMPL ETE nitrite, urine NEGATI VE negati ve Not Available [facility] ([facility]) [address] [facility], [place], [address], 09/09/2024 11:14:59 09/08/20 24 09/09/2024 URINA LYSIS , COMPL ETE microscopic examination COMMEN T Micro scopi c follo ws if indic ated. Not Available [facility] ([facility]) [address] [facility], [place], [address], 09/09/2024 11:14:59 09/08/20 24 09/09/2024 URINA LYSIS , COMPL ETE microscopic examination SEE BELOW: Micro scopi c was indic ated and was perfo rmed. Not Available [facility] ([facility]) [address] [facility], [place], [address], 09/09/2024 11:14:59 09/08/20 24 09/09/2024 PTH, INTAC T PTH, intact 55 pg/mL 15 Not Available [facility] ([facility]) [address] [facility], [place], [address], 09/09/2024 11:15:00 09/08/20 24 09/08/2024 HbA1c (hemo globi n A1c), blood HbA1c 7.7 Not Available In-Office Order Internal Use Only DO Not Attach Compendium DO Not Attach Compendium, Do Not Delete/merge, [id number] 09/08/2024 15:43:15 09/08/20 24 09/08/2024 gluco se, finge rstic k, blood Blood Glucose: mg/dl 245 Not Available In-Off ice Order Internal Use Only DO Not Attach Compendium DO Not Attach Compendium, Do Not Delete/merge, [id number] 09/08/2024 15:43:16 04/20/20 25 04/20/2025 HbA1c (hemo globi n A1c), blood HbA1C 6.4 % Not Available In-Office Order Internal Use Only DO Not Attach Compendium DO Not Attach Compendium, Do Not Delete/merge, [id number] 04/20/2025 16:26:29 04/20/20 25 04/20/2025 gluco se, finge rstic k, blood Blood Glucose: mg/dl 159 Not Available In-Off ice Order Internal Use Only DO Not Attach Compendium DO Not Attach Compendium, Do Not Delete/merge, [id number] 04/20/2025 16:26:23 04/23/20 25 04/24/2025 ALBUM IN/CR EATIN INE RATIO ,URIN E creatinine, urine 60.9 mg/dL notest ab. Not Available [facility] ([facility]) [address] [place], [address], 04/24/2025 16:14:13 04/23/20 25 04/24/2025 ALBUM IN/CR EATIN INE RATIO ,URIN E albumin, urine 36.9 ug/mL notest ab. Not Available [facility] ([facility]) [address] [place], [address], 04/24/2025 16:14:13 04/23/20 25 04/24/2025 ALBUM IN/CR EATIN INE RATIO ,URIN E alb/creat ratio 61 mg/g_ creat 0-29 above high normal Jenniffer l: 0 - 29 Moder ately incre ased: 30 - 300 Sever rin incre ased: >300 Not Available [facility] ([facility]) [address] [place], [address], 04/24/2025 16:14:13 04/23/20 25 04/24/2025 LIPID PANEL cholesterol, total 118 mg/dL 100-19 9 Not Available [facility] ([facility]) [address] [place], [address], 04/24/2025 16:14:14 04/23/20 25 04/24/2025 LIPID PANEL triglyceride s 199 mg/dL 0-149 above high normal Not Available [facility] ([facility]) [address] [place], [address], 04/24/2025 16:14:14 04/23/20 25 04/24/2025 LIPID PANEL HDL cholesterol 37 mg/dL >39 below low normal Not Available [facility] ([facility]) [address] [place], [address], 04/24/2025 16:14:14 04/23/20 25 04/24/2025 LIPID PANEL VLDL cholesterol shira 32 mg/dL 5-40 Not Available [facility] ([facility]) [address] [place], [address], 04/24/2025 16:14:14 04/23/20 25 04/24/2025 LIPID PANEL LDL chol calc ([facility]) 49 mg/dL 0-99 Not Available [facility] ([facility]) [address] [place], [address], 04/24/2025 16:14:14 04/23/20 25 04/24/2025 COMP. METAB OLIC PANEL (14) glucose 127 mg/dL 70-99 above high normal Not Available [facility] ([facility]) [address] [place], [address], 04/24/2025 16:14:15 04/23/20 25 04/24/2025 COMP. METAB OLIC PANEL (14) BUN 15 mg/dL 6-24 Not Available [facility] ([facility]) [address] [facility], [place], [address], 04/24/2025 16:14:15 04/23/20 25 04/24/2025 COMP. METAB OLIC PANEL (14) creatinine 0.75 mg/dL 0.76-1 .27 below low normal Not Available [facility] ([facility]) [address] [facility], [place], [address], 04/24/2025 16:14:15 04/23/20 25 04/24/2025 COMP. METAB OLIC PANEL (14) eGFR 105 mL/mi n/1.7 3 >59 Not Available [facility] ([facility]) [address] [facility], [place], [address], 04/24/2025 16:14:15 04/23/20 25 04/24/2025 COMP. METAB OLIC PANEL (14) BUN/creatini ne ratio 20 9-20 Not Available [facility] ([facility]) [address] [facility], [place], [address], 04/24/2025 16:14:15 04/23/20 25 04/24/2025 COMP. METAB OLIC PANEL (14) sodium 138 mmol/ L 134-14 4 Not Available [facility] ([facility]) [address] [facility], [place], [address], 04/24/2025 16:14:15 04/23/20 25 04/24/2025 COMP. METAB OLIC PANEL (14) potassium 4.5 mmol/ L 3.5-5. 2 Not Available [facility] ([facility]) [address] [place], [address], 04/24/2025 16:14:15 04/23/20 25 04/24/2025 COMP. METAB OLIC PANEL (14) chloride 99 mmol/ L 96-106 Not Available [facility] ([facility]) [address] [facility] [place], [address], 04/24/2025 16:14:15 04/23/20 25 04/24/2025 COMP. METAB OLIC PANEL (14) carbon dioxide, total 22 mmol/ L 20-29 Not Available [facility] ([facility]) [address] [facility] [place], [address], 04/24/2025 16:14:15 04/23/20 25 04/24/2025 COMP. METAB OLIC PANEL (14) calcium 9.7 mg/dL 8.7-10 .2 Not Available [facility] ([facility]) [address] [facility], [place], [address], 04/24/2025 16:14:15 04/23/20 25 04/24/2025 COMP. METAB OLIC PANEL (14) protein, total 7.7 g/dL 6.0-8. 5 Not Available [facility] ([facility]) [address] [facility] [place], [address], 04/24/2025 16:14:15 04/23/20 25 04/24/2025 COMP. METAB OLIC PANEL (14) albumin 4.1 g/dL 3.8-4. 9 Not Available [facility] ([facility]) [address] [facility] [place], [address], 04/24/2025 16:14:15 04/23/20 25 04/24/2025 COMP. METAB OLIC PANEL (14) globulin, total 3.6 g/dL 1.5-4. 5 Not Available [facility] ([facility]) [address] [facility] [place], [address], 04/24/2025 16:14:15 04/23/20 25 04/24/2025 COMP. METAB OLIC PANEL (14) bilirubin, total 0.7 mg/dL 0.0-1. 2 Not Available [facility] ([facility]) [address] [facility], [place], [address], 04/24/2025 16:14:15 04/23/20 25 04/24/2025 COMP. METAB OLIC PANEL (14) alkaline phosphatase 129 IU/L 44-121 above high normal Not Available [facility] ([facility]) [address] [facility], [place], [address], 04/24/2025 16:14:15 04/23/20 25 04/24/2025 COMP. METAB OLIC PANEL (14) AST (SGOT) 15 IU/L 0-40 Not Available [facility] ([facility]) [address] [facility], [place], [address], 04/24/2025 16:14:15 04/23/20 25 04/24/2025 COMP. METAB OLIC PANEL (14) ALT (SGPT) 10 IU/L 0-44 Not Available [facility] ([facility]) [address] [facility], [place], [address], 04/24/2025 16:14:15 04/23/2004/24/2025 MICRO SCOPI C EXAMI NATIO N WBC 0-5 /hpf 0-5 Not Available [facility] ([facility]) [address] [facility], [place], [address], 04/24/2025 16:14:16 04/23/20 25 04/24/2025 MICRO SCOPI C EXAMI NATIO N RBC None seen /hpf 0-2 Not Available [facility] ([facility]) [address] [facility], [place], [address], 04/24/2025 16:14:16 04/23/20 25 04/24/2025 MICRO SCOPI C EXAMI NATIO N epithelial cells (non renal) 0-10 /hpf 0-10 Not Available [facility] ([facility]) [address] [facility], [place], [address], 04/24/2025 16:14:16 04/23/20 25 04/24/2025 MICRO SCOPI C EXAMI NATIO N casts None seen /lpf nonese en Not Available [facility] ([facility]) [address] [place], [address], 04/24/2025 16:14:16 04/23/20 25 04/24/2025 MICRO SCOPI C EXAMI NATIO N bacteria None seen nonese en/few Not Available [facility] ([facility]) [address] [facility], [place], [address], 04/24/2025 16:14:16 04/23/2004/24/2025 URINA LYSIS , ROUTI NE W/RFX specific gravity 1.025 1.005- 1.030 Not Available [facility] ([facility]) [address] [place], [address], 04/24/2025 16:14:17 04/23/20 25 04/24/2025 URINA LYSIS , ROUTI NE W/RFX pH 5.5 5.0-7. 5 Not Available [facility] ([facility]) [address] [place], [address], 04/24/2025 16:14:17 04/23/20 25 04/24/2025 URINA LYSIS , ROUTI NE W/RFX urine-color YELLOW yellow Not Available [facility] ([facility]) [address] [place], [address], 04/24/2025 16:14:17 04/23/2004/24/2025 URINA LYSIS , ROUTI NE W/RFX appearance CLEAR clear Not Available [facility] ([facility]) [address] [place], [address], 04/24/2025 16:14:17 04/23/20 25 04/24/2025 URINA LYSIS , ROUTI NE W/RFX WBC esterase 1+ negati ve abnormal Not Available [facility] ([facility]) [address] [place], [address], 04/24/2025 16:14:17 04/23/20 25 04/24/2025 URINA LYSIS , ROUTI NE W/RFX protein NEGATI VE negati ve/tra ce Not Available [facility] ([facility]) [address] [place], [address], 04/24/2025 16:14:17 04/23/2004/24/2025 URINA LYSIS , ROUTI NE W/RFX glucose 3+ negati ve abnormal Not Available [facility] ([facility]) [address] [place], [address], 04/24/2025 16:14:17 04/23/20 25 04/24/2025 URINA LYSIS , ROUTI NE W/RFX ketones NEGATI VE negati ve Not Available [facility] ([facility]) [address] [place], [address], 04/24/2025 16:14:17 04/23/2004/24/2025 URINA LYSIS , ROUTI NE W/RFX occult blood NEGATI VE negati ve Not Available [facility] ([facility]) [address] [place], [address], 04/24/2025 16:14:17 04/23/20 25 04/24/2025 URINA LYSIS , ROUTI NE W/RFX bilirubin NEGATI VE negati ve Not Available [facility] ([facility]) [address] [place], [address], 04/24/2025 16:14:17 04/23/20 25 04/24/2025 URINA LYSIS , ROUTI NE W/RFX urobilinogen ,semi-qn 0.2 mg/dL 0.2-1. 0 Not Available [facility] ([facility]) [address] [place], [address], 04/24/2025 16:14:17 04/23/2004/24/2025 URINA LYSIS , ROUTI NE W/RFX nitrite, urine NEGATI VE negati ve Not Available [facility] ([facility]) [address] [place], [address], 04/24/2025 16:14:17 04/23/2004/24/2025 URINA LYSIS , ROUTI NE W/RFX microscopic examination SEE BELOW: Micro scopi c was indic ated and was perfo rmed. Not Available [facility] ([facility]) [address] [facility], [place], [address], 04/24/2025 16:14:17 04/23/20 25 04/24/2025 TSH RFX ON ABNOR MAL TO FREE T4 TSH 2.790 uIU/m L 0.450- 4.500 Not Available [facility] ([facility]) [address] [facility], [place], [address], 04/24/2025 16:14:18 04/23/2004/24/2025 PROST ATE-S PECIF IC AG prostate specific Ag 2.2 NG/mL 0.0-4. 0 Marcus ECLIA metho dolog y. Accor ding to the Ameri can [employer] i[employer] n, Serum PSA shoul d decre ase and remai n at undet ectab le level s after radic al prost atect asad. The AUA defin es bioch emica l recur rence as an initi al PSA value 0.2 ng/mL or great er follo wed by a subse quent confi rmato ry PSA value 0.2 ng/mL or great er. Value s obtai rock with diffe rent assay metho ds or kits canno t be used inter harper eably . Resul ts canno t be inter prete d as absol seminole evide nce of the prese nce or absen ce of sanchez wilson disea se. Not Available [facility] ([facility]) [address] [facility], [place], [address], 04/24/2025 16:14:20 07/22/2007/23/2025 PROST ATE-S PECIF IC AG prostate specific Ag 2.9 NG/mL 0.0-4. 0 Marcus ECLIA metho dolog y. Accor ding to the Ameri can [employer]o g[employer] iatio n, Serum PSA shoul d decre ase and remai n at undet ectab le level s after radic al prost atect asad. The AUA defin es bioch emica l recur rence as an initi al PSA value 0.2 ng/mL or great er follo wed by a subse quent confi rmato ry PSA value 0.2 ng/mL or great er. Value s obtai rock with diffe rent assay metho ds or kits canno t be used inter harper eably . Resul ts canno t be inter prete d as absol seminole evide nce of the prese nce or absen ce of sanchez lorenzo se. Not Available [facility] ([facility]) [address] [facility], [place], [address], 07/23/2025 08:32:52 07/22/2007/22/2025 HbA1c (hemo globi n A1c), blood HbA1C 6.8 % Not Available In-Office Order Internal Use Only DO Not Attach Compendium DO Not Attach Compendium, Do Not Delete/merge, [id number] 07/22/2025 15:55:57 07/22/2007/22/2025 gluco se, finge rstic k, blood Blood Glucose: mg/dl 180 Not Available In-Off ice Order Internal Use Only DO Not Attach Compendium DO Not Attach Compendium, Do Not Delete/merge, 07/22/2025 15:56:02 Result Notes None recorded. Problems Name Problem SNOMED Code Status Onset Date Resolution Date Notes Provider Name and Address Organization Details Recorded Time [facility] hyperten corey 63074584 Active JEN [place], [place] - [facility] 2 16:19:34 Chronic renal impairme nt Active Yetzenia Jeff, [facility] Attn: Accountin g,[address] [facility], [place], [place], [address] [place] [address] 2, [place] - [facility] 2 16:49:48 Coronary atherosc lerosis 306612791 Active Josué Victoria [facility] Attn: Accountin g,[address] [facility], [place], [place], [address] [place] [address] 2, [place] [facility] 2 16:49:48 Osteoart hritis 948077752 Active Cara bhandari [place] null, [place] [facility] 2 16:19:50 Type 2 diabetes mellitus without complica tion 437969903 Completed 09/22/2016 Josué Victoria [facility] Attn: Accountin g,[address] [facility], [place], [address] [place] [address] 2, [place] [facility] 6 11:24:05 Acute gastriti s 51067492 Completed 06/21/2018 Amy Stewart RN [place] [facility] 8 11:25:26 Obesity 525631162 Active Josué Victoria [facility] Attn: Accountjamie g,[address] [facility], [place], [address] [place] [address] 2, [place] [facility] 2 16:49:48 Vitiligo 00902027 Active Josué Victoria [facility] Attn: Accountjamie g,[address] [facility], [place], [address] [place] [address] 2, [place] [facility] 2 16:49:48 Gastroes ophageal reflux disease 808345423 Active Cara [place]hand[place] [facility] 2 16:20:08 Hyperlip idemia 10442669 Active Cara bhandari [place] [facility] 2 16:19:57 Pain of hip region 85656319 Completed 06/21/2018 Amy Stewart [place] [facility] 8 11:25:36 Nocturia 528015645 Completed 06/21/2018 Amy [place] [facility] 8 11:25:51 Disorder of nail 64540106 Completed 06/21/2018 Amy [place] [facility] [place] 11:25:19 Tubular adenoma 569465092 Completed 201604/01/2021 WEN ACEVEDO, [employer] [address] [place], [address], [place] [facility] 1 13:38:36 Polyp of cecum 984296287 Completed 201611/01/2018 [facility] Attn: Anita avila,[address] [place], [address], [place] [facility] 9 14:24:31 Rectal polyp 29396999 Active [address] Franklin Victoria [facility] Attn: Anita g,[address] [facility], [place], [address], [place] [facility] 2 16:49:48 Diabetes mellitus 74220396 Completed 201611/01/2018 Josué Victoria [facility] Attn: Anita g,[address] [facility], [place], [address], [place] [facility] 9 14:24:19 Multiple complica tions due to type 2 diabetes mellitus Active 2018 [facility] Attn: Anita g,[address] [facility], [place], [address], [place] [facility] 2 16:49:48 Pruritus ani 86272977 Completed 201809/13/2021 Amy Stewart RN [place] [facility] 1 11:04:48 History of cerebrov ascular accident 818337934 Active 2018 [facility]n: Anita g,[address] [place], [address], [place] [facility] 2 16:49:48 Right hemipare sis 752941705 Active 2018 [facility] Attn: Accountin g,[address] [facility], [place], [address], [place] [facility] 2 16:49:48 Spastici ty as sequela of stroke 61215774702 9102 Active 2020 [facility] Attn: Accountin g,[address] [facility], [place], [address], [place] [facility] 2 16:49:48 Steatoti c liver disease 951386861 Active 2020 Fibrosca n 1: F2, S3 TITI [facility] Attn: Accountin g,[address] [facility], [place], [address], [place] [facility] 2 16:49:48 Tubular adenomat ous polyp of colon 477371354 Active 2020 Next colonosc opy Septembe r 2025 Josué Victoria [facility] Attn: Accountin g,[address] [facility], [place], [address], [place] [facility] 2 16:49:48 Body mass index 30+ - obesity 750458623 Active 2020 TOMÁS [facility] Attn: Accountin g,[address] [facility], [place], [address], [place] [facility] 2 16:49:48 Internal hemorrho ids 37830823 Active 2020 Josué Victoria [facility] Attn: Accountin g,[address] [facility], [place], [address], [place] [facility] 2 16:49:48 Divertic ulosis of colon 009870198 Active 2020 [facility] Attn: Accountin g,[address] [facility], [place], [address], [place] [facility] 2 16:49:48 Abnormal liver function 79797450 Active 2020 Cara bhand[place] [facility] 2 16:19:19 Vitamin D deficien cy 34319494 Active 2020 Cara bhandari [place] [facility] 2 16:19:42 Benign prostati c hyperpla julieth without outflow obstruct ion 652211660 Active 2021 Josué Victoria [facility] Attn: Anita avila,[address] [facility], [place], [address], [place] [facility] 2 16:49:48 Complain ing of erectile dysfunct ion Active 2021 Josué Victoria [facility] Attn: Anita avila,[address] [facility], [place], [address], [place] [facility] 2 16:49:48 Chronic kidney disease 409311246 Active 2021 Cara [place]hand[place] [facility] 2 16:19:26 Lumbar spondylo sis 840031372 Active 2021 [facility]é [facility] Attn: Anita avila,[address] [facility], [place], [address], [place] [facility] 2 14:48:06 Major depressi ve disorder 513971666 Active 2022 Josué Victoria [facility] Attn: Anita avila,[address] [facility], [place], [address], [place] [facility] 3 16:17:28 Weakness of right hand 12241918111 487824 Active 2022 Josué Victoria [facility] Attn: Anita avila,[address] [facility], [place], [address], [place] [facility] 3 16:17:49 Incontin ence of feces 29986002 Active 2023 MYNOR Burk Attn: Anita avila,[address] [facility], [place], [address] [place] [address] 2, [facility] SI 4 17:35:26 Overacti ve urinary bladder 316088232 Active 2023 MYNOR Burk Attn: Anita avila,[address] [facility], [place], [address] [place] [address] 2, [facility] - SI 4 17:35:28 Peripher al neuropat hy due to type 2 diabetes mellitus 30412844760 07 Active 2023 MYNOR Burk Attn: Anita avila,[address] [facility], [place], [address] [place] [address] 2, [facility] SI 4 16:30:55 Notes:Some problems listed i n Documents: #[id number], #[id number] could not be added to this patient's chart. Please review these documents and add these problems to the patient's chart manually as needed. Problem Notes None recorded. Procedures Surgical History Date Name Laterality Status Provider Name and Address Organization Details Recorded Time 4 Suture/Staple removal completed MYNOR Burk Attn: Accounting,[address] [facility], [place], [address], [facility] 04/01/2024 17:53:04 4 Cerumen Removal completed MYNOR Burk Attn: Accounting,[address] [facility], [place], [address], [facility] 03/03/2024 17:18:47 6 Toenail avulsion completed MYNOR Burk Attn: Accounting,[address] [facility], [place], [address], [facility] 01/07/2016 15:01:43 Angioplasty With Stent completed MYNOR Burk Attn: Accounting,[address], [place], [address], [place] [facility] 03/29/2015 11:25:03 Imaging Results None recorded. Procedure Notes None recorded. Medical Equipment None Reported. Allergies Allergen ID Allergen Name Allergen Category Reaction Reaction Severity Criticality Documentation Date Start Date Code Code System Note Provider Name and Address Organization Details Recorded Time 20350102 amlodipin e medicatio n swelling Not available high 07/22/20252022 38489 RxNorm In legs, ankle s, feet. Not Available rosio - External Data Service - prod 04:35:26 Medications Name Sig Start Date Stop Date Status Note LastModified by Organization Details LastModified Time januvia 100 mg tabs 01/06 completed Not Available Not Available Not Available lisinopri l tab 10mglisin opril active Not Available Not Available Not Available freestyle mis lancetsfr eestyle lancets active Not Available Not Available Not Available aspirin low ec 81mg tab TAKE 1 TABLET BY MOUTH ONCE DAILY 02/15 completed Not Available Not Available Not Available freestyle mila litefrees tyle lite test strips 04/19 completed 12/08/15: refilled x6 called into [facility] spoke with Cait. Not Available Not Available Not Available clopidogr el 75 mg tabs 01/06 completed Not Available Not Available Not Available lisinopri l 20 mg tabs 01/06 completed Not Available Not Available Not Available januvia tab 100mgjanu via active Not Available Not Available Not Available simvastat in 80 mg tabs 01/06 completed Not Available Not Available Not Available metoprolo l tab 100mg ermetopro lol succinate er active Not Available Not Available Not Available simvastat in tab 80mgsimva statin 01/06 completed Not Available Not Available Not Available ecotrin low tab 81mg ececotrin low strength active Not Available Not Available Not Available tramadol hcl tab 50mgtrama dol hcl active Not Available Not Available Not Available hydroco/a pap tab 5-325mghy drocodone /acetamin ophen active Not Available Not Available Not Available fluticaso ne spr 50mcgflut icasone propionat e 09/22 completed Not Available Not Available Not Available aspirin low tab 81mg ecaspirin ec low dose active Not Available Not Available Not Available Prescript ion - Prior Authoriza tion Request 06/21 completed APPROVED Not Available Not Available Not Available clotrimaz ole 1 % crea 01/06 completed Not Available Not Available Not Available naproxen tab 500mgnapr oxen active Not Available Not Available Not Available ecotrin low strength 81 mg tbec 01/06 completed Not Available Not Available Not Available clopidogr el tab 75mgclopi dogrel 01/06 completed Not Available Not Available Not Available tramadol hcl 50 mg tabs 01/06 completed Not Available Not Available Not Available lisinopri l tab 20mglisin opril 01/06 completed Not Available Not Available Not Available clotrimaz ole cre 1%clotrim azole active Not Available Not Available Not Available monteluka st tab 10mgmonte lukast sodium 09/22 completed Not Available Not Available Not Available metoprolo l succinate er 100 mg tb24 01/06 completed Not Available Not Available Not Available Singulair 10 mg tablet Take 1 tablet every day by oral route. active Not Available Not Available No t Available cyclobenz aprine 10 mg tablet 05/24 completed Not Available Not Available Not Available amoxicill in 500 mg capsule 11/20 completed Not Available Not Available Not Available Miralax 17 gram/dose oral powder In a pitcher, mix entire bottle of Miralax in one 64 ounce bottle of yellow or green Gatorade . Beginnin g at 5:00 PM the evening before the colonosc opy, drink 1 8-ounce glass every 15 minutes until complete d. Drink 4 glasses of water after finishin g this mixture 06/15 completed Not Available Not Available Not Available atorvasta tin 40 mg tablet Take 1 tablet every day by oral route, for choleste rol. 2024 active Not Available Not Available Not Avai lable methocarb jody 500 mg tablet 05/06 completed Not Available Not Available Not Available metformin 500 mg tablet TAKE 1 TABLET BY MOUTH TWICE DAILY active Not Available Not Available No t Available gabapenti n 600 mg tablet Take 1 tablet 3 times a day by oral route. 12/09 completed Not Available Not Available Not Available cetirizin e 10 mg tablet TAKE 1 TABLET BY MOUTH ONCE DAILY active Not Available Not Available No t Available doxazosin 1 mg tablet Take 1 tablet every day by oral route. 09/22 completed Not Available Not Available Not Available glyburide 5 mg tablet TAKE 1 TABLET BY MOUTH ONCE DAILY 11/20 completed Not Available Not Available Not Available tizanidin e 4 mg tablet Take 1 tablet every 6 hours by oral route, for spastici ty/muscl e spasm. 04/20 completed Not Available Not Available Not Available fluconazo le 150 mg tablet TAKE 1 TABLET BY MOUTH ONCE DAILY FOR 1 DAY 04/01 completed Not Available Not Available Not Available glyburide 2.5 mg tablet Take 1 tablet every day by oral route. 06/19 completed Not Available Not Available Not Available lisinopri l 20 mg tablet TAKE 1 TABLET BY MOUTH TWICE DAILY active Not Available Not Available No t Available prednison e 20 mg tablet 11/01 completed Not Available Not Available Not Available metoprolo l succinate ER 100 mg tablet,ex tended release 24 hr Take 1 tablet every day by oral route, for hyperten corey. 2024 active Not Available Not Available Not Avai lable gabapenti n 400 mg capsule Take 1 capsule 3 times a day by oral route. 02/23 completed Not Available Not Available Not Available probeneci d 500 mg-colchi cine 0.5 mg tablet 09/27 completed Not Available Not Available Not Available clindamyc in HCl 150 mg capsule 09/22 completed Not Available Not Available Not Available torsemide 10 mg tablet 05/24 completed Not Available Not Available Not Available clopidogr el 75 mg tablet Take 1 tablet by mouth once daily 03/15 completed Not Available Not Available Not Available amlodipin e 5 mg tablet TAKE 1 TABLET BY MOUTH ONCE DAILY 04/16 completed 2/2 c/o lower extremit y swelling Not Available Not Available Not Available simvastat in 80 mg tablet TAKE ONE TABLET BY MOUTH ONCE DAILY 11/01 completed Not Available Not Available Not Available allopurin ol 100 mg tablet Take 1 tablet every day by oral route. 12/25 completed Not Available Not Available Not Available ciproflox acin 500 mg tablet 06/21 completed Not Available Not Available Not Available sulfameth oxazole 800 mg-trimet hoprim 160 mg tablet 09/22 completed Not Available Not Available Not Available hydrocodo ne 10 mg-acetam inophen 325 mg tablet 12/22 completed Not Available Not Available Not Available aspirin 81 mg tablet,de layed release Take 1 tablet by mouth once daily 2022 active Not Available Not Available Not Avai lable tramadol 50 mg tablet Take 2 tablets twice a day by oral route. 06/21 completed Not Available Not Available Not Available sildenafi l 100 mg tablet Take 1 tablet every day by oral route. 05/24 completed Not Available Not Available Not Available glimepiri de 2 mg tablet Take 1 tablet every day by oral route. 02/28 completed Not Available Not Available Not Available Depo-Medr ol 80 mg/mL suspensio n for injection inject as directed 05/06 completed Not Available Not Available Not Available Protopic 0.1 % topical ointment APPLY A THIN LAYER TO THE AFFECTED AREA(S) BY TOPICAL ROUTE 2 TIMES PER DAY ; RUB IN GENTLY AND COMPLETE LY 05/24 completed Not Available Not Available Not Available meloxicam 7.5 mg tablet 02/28 completed Not Available Not Available Not Available famotidin e 20 mg tablet TAKE 1 TABLET BY MOUTH TWICE DAILY BEFORE MEAL(S) active Not Available Not Available No t Available E-R-O Ear Wax Removal System 6.5 % drops 06/21 completed Not Available Not Available Not Available Proctozon e-HC 2.5 % topical cream perineal applicato r APPLY A THIN LAYER TO THE AFFECTED AREA(S) BY TOPICAL ROUTE 2-4 TIMESDAI LY 08/16 completed Not Available Not Available Not Available cephalexi n 500 mg capsule Take 1 capsule 4 times a day by oral route for 10 days. 02/23 completed Not Available Not Available Not Available pantopraz ole 40 mg tablet,de layed release Take 1 tablet(s ) every day by oral route for 30 days. 06/02 completed Not Available Not Available Not Available oseltamiv ir 75 mg capsule 02/28 completed Not Available Not Available Not Available fluoxetin e 20 mg tablet Take 1 tablet every day by oral route, for depressi on. 2024 active Not Available Not Available Not Avai lable metformin 1,000 mg tablet Take 1 tablet twice a day by oral route, for diabetes mellitus 2. 2024 active Not Available Not Available Not Avai lable Catapres 0.1 mg tablet 2014 active Not Available Not Available Not Avai lable nystatin 100,000 unit/gram topical cream APPLY CREAM TOPICALL Y TO AFFECTED AREA TWICE DAILY active Not Available Not Available No t Available clotrimaz ole-betam ethasone 1 %-0.05 % topical cream 06/19 completed Not Available Not Available Not Available lisinopri l 10 mg tablet Take 1 tablet every day by oral route. 01/06 completed Not Available Not Available Not Available clotrimaz ole 1 % topical solution 06/21 completed Not Available Not Available Not Available fluoxetin e 10 mg capsule Take 1 capsule every day by oral route. 11/20 completed Not Available Not Available Not Available diclofena c potassium 50 mg tablet 09/22 completed Not Available Not Available Not Available oxybutyni n chloride ER 5 mg tablet,ex tended release 24 hr TAKE 1 TABLET BY MOUTH ONCE DAILY active Not Available Not Available No t Available omeprazol e 20 mg capsule,d elayed release Take 1 capsule every day by oral route. 09/22 completed Not Available Not Available Not Available doxazosin 4 mg tablet TAKE 1 TABLET BY MOUTH ONCE DAILY active Not Available Not Available No t Available alcohol swabs USE DIRECTED TO CHECK BLOOD SUGARS FASTING AND POST PRANDIAL active Not Available Not Available No t Available hydrochlo rothiazid e 25 mg tablet TAKE 1 TABLET BY MOUTH IN THE MORNING active Not Available Not Available No t Available gabapenti n 100 mg capsule Take 1 capsule 3 times a day by oral route. 09/04 completed Not Available Not Available Not Available ergocalci ferol (vitamin D2) 1,250 mcg (50,000 unit) capsule TAKE 1 CAPSULE BY MOUTH ONCE A WEEK 06/02 completed Not Available Not Available Not Available colchicin e 0.6 mg tablet 06/19 completed Not Available Not Available Not Available ketoconaz ole 2 % topical cream APPLY 1 GRAM TOPICALL Y TWICE DAILY active Not Available Not Available No t Available lisinopri l 40 mg tablet TAKE 1 TABLET BY MOUTH ONCE DAILY 03/03 completed Not Available Not Available Not Available clotrimaz ole 1 % topical cream 01/06 completed Not Available Not Available Not Available doxycycli ne hyclate 100 mg tablet 06/21 completed Not Available Not Available Not Available naproxen 500 mg tablet TAKE ONE TABLET BY MOUTH TWICE DAILY NEEDED FOR PAIN 09/22 completed Not Available Not Available Not Available doxazosin 2 mg tablet Take 1 tablet every day by oral route. 02/15 completed Not Available Not Available Not Available amoxicill in 875 mg-potass ium clavulana te 125 mg tablet TAKE 1 TABLET BY MOUTH EVERY 12 HOURS 04/01 completed Not Available Not Available Not Available Dulcolax (bisacody l) 5 mg tablet,de layed release At 2:00 PM the day before the colonosc opy, take all 4 tablets of Dulcolax by mouth at one time with 8 ounces of water 06/15 completed Not Available Not Available Not Available Blood Glucose Test strips Use as directed to check blood sugars Fasting and PP 2024 active Not Available Not Available Not Avai lable Vitamin D3 25 mcg (1,000 unit) tablet Take 1 tablet every day by oral route, for vitamin d. 2024 active Not Available Not Available Not Avai lable Arthritis Pain Relief (acetamin ophen) ER 650 mg tablet,ex tend release Take 2 tablets every 8 hours by oral route. 06/15 completed Not Available Not Available Not Available Levitra 10 mg tablet Take 1 tablet every day by oral route. 11/01 completed ordered by urologis t Not Available Not Available Not Available Glucosami ne Chondroit in Maximum Strength 500 mg-400 mg capsule Take 1 capsule every day by oral route for 30 days. 2024 active Not Available Not Available Not Avai lable tadalafil 20 mg tablet TAKE 1 TABLET BY MOUTH NEEDED 04/20 completed Not Available Not Available Not Available Cialis 10 mg tablet Take 1 tablet every day by oral route. 12/13 completed Not Available Not Available Not Available nitrofura ntoin monohydra te/macroc rystals 100 mg capsule TAKE 1 CAPSULE BY MOUTH TWICE DAILY 09/04 completed Not Available Not Available Not Available Januvia 100 mg tablet TAKE 1 TABLET BY MOUTH ONCE DAILY 01/11 completed Not Available Not Available Not Available alin carusoiazid e 12.5 mg tablet TAKE 1 TABLET BY MOUTH IN THE MORNING 06/09 completed Not Available Not Available Not Available OneTouch Delica Lancets 33 gauge 09/04 completed Not Available Not Available Not Available OneTouch Delica Lancets use as directed to check blood sugars TID 06/[address] [facility] spoke with Caroline Not Available Not Available Not Available Victoza 2-Afshin 0.6 mg/0.1 mL (18 mg/3 mL) subcutane ous pen injector INJECT 1.2 MG SUBCUTAN EOUSLY ONCE DAILY FOR 7 DAYS 01/10 completed Not Available Not Available Not Available TRUEplus Lancets 28 gauge TO TEST BLOOD SUGAR 05/13 completed Not Available Not Available Not Available Farxiga 5 mg tablet TAKE 1 TABLET BY MOUTH ONCE DAILY 07/19 completed Stopped by Neph Not Available Not Available Not Available Jardiance 10 mg tablet TAKE 1 TABLET BY MOUTH ONCE DAILY 12/05 completed Not Available Not Available Not Available Jardiance 25 mg tablet Take 1 tablet every day by oral route, for diabetes mellitus /kidney protecti on/cardi ovascula r risk reductio n. 2024 active Not Available Not Available Not Avai lable OneTouch Verio Meter TO TEST BLOOD SUGAR 05/13 completed Not Available Not Available Not Available TRUEplus Pen Needle 32 gauge x 5/32 DIRECTED FOR VICTOZA ADMINIST RATION active Not Available Not Available No t Available Ozempic 0.25 mg or 0.5 mg (2 mg/1.5 mL) subcutane ous pen injector Inject 0.5 mg every week by subcutan eous route, for DIABETES mellitus 2. 09/08 completed Not Available Not Available Not Available baclofen 5 mg tablet TAKE 1 TABLET BY MOUTH THREE TIMES DAILY active Not Available Not Available No t Available OneTouch Delica Plus Lancet 30 gauge USE DIRECTED TO CHECK BLOOD SUAGR FASTING AND POST PRANDIAL active Not Available Not Available No t Available Voltaren Arthritis Pain 1 % topical gel APPLY 2 GRAMS TO THE AFFECTED KNEE(S) BY TOPICAL ROUTE 4 TIMES PER DAY 2024 active Not Available Not Available Not Avai lable Gemtesa 75 mg tablet Take 1 tablet every day by oral route. 11/01 completed started by urologis t Dr. Arrington /samples Not Available Not Available Not Available Ozempic 1 mg/dose (4 mg/3 mL) subcutane ous pen injector INJECT 1MG SUBCUTAN EOUSLY ONCE A WEEK active Not Available Not Available No t Available Ozempic 0.25 mg or 0.5 mg (2 mg/3 mL) subcutane ous pen injector INJECT 0.5 MG EVERY WEEK SUBCUTAN EOUS ROUTE, FOR DIABETES MELLITUS 09/08 completed Not Available Not Available Not Available Vitals Date Recorded Body height Body mass index (BMI) Body weight Body temperature Oxygen saturation Heart rate Systolic And Diastolic Provider Name and Address Organization Details Last Updated DateTime 5 156.21 cm 28.3 kg/m2 37283.4 4 g 97.6 [degF] 96 % 68 /min 102/66 mm[Hg] Shanon Priest MA [facility] 16:58:49 Date Recorded Body height Provider Name an d Address Organization Details Last Updated DateTime 04/23/2025 156.21 cm Shanon parks MA [facility] 04/23/2025 10:26:05 Date Recorded Body height Body mass index (BMI) Body weight Body temperature Oxygen saturation Heart rate Systolic And Diastolic Provider Name and Address Organization Details Last Updated DateTime 5 156.21 cm 29 kg/m2 86467.0 1 g 97.8 [degF] 95 % 76 /min 130/78 mm[Hg] Cara bhandari MA [facility] 5 16:52:26 Date Recorded Body height Provider Name an d Address Organization Details Last Updated DateTime 07/22/2025 156.21 cm Amy Stewart RN [facility] 2024 15:54:29 Date Recorded Body mass index (BMI) Body weight Body temperature Oxygen saturation Heart rate Systolic And Diastolic Provider Name and Address Organization Details Last Updated DateTime 10/22/202 5 29.3 kg/m2 74946.1 9 g 98.7 [degF] 96 % 86 /min 110/70 mm[Hg] Cara bhandari MA [place] - [facility] 16:04:05 Date Recorded Body height Body mass index (BMI) Body weight Oxygen saturation Heart rate Body temperature Systolic And Diastolic Provider Name and Address Organization Details Last Updated DateTime 4 156.21 cm 29.6 kg/m2 86904.5 9 g 97 % 76 /min 97.3 [degF] 106/72 mm[Hg] Amy Stewart RN [place] - [facility] 15:58:44 Social History Question Answer Notes LastModified by Organizat ion Details LastModified Time Tobacco Smoking Status Former Smoker Quit in 1999 WEN ACEVEDO, DAISHA [address] [place], [address], [facility] - [facility] 04/01/2021 12:06:05 Do You Have An Advance Directive? No [email or web address] Information not available 11/17/2014 Are You Blind Or Do You Have Difficulty Seeing? No Information not available 12/09/2020 What Is Your Level Of Caffeine Consumption? Moderate Information not available 11/17/2014 How Much Tobacco Do You Chew? None [email or web address] Information not available 11/17/2014 In The 14 Days Before Symptom Onset, Have You Had Close Contact With A Laboratory-confir med COVID-19 While That Case Was Ill? No Information not available 08/16/2020 In The 14 Days Before Symptom Onset, Have You Had Close Contact With A Person Who Is Under Investigation For COVID-19 While That Person Was Ill? No Information not available 08/16/2020 Have You Been To An Area Known To Be High Risk For COVID-19? No [email or web address] Information not available 11/20/2019 Are You Deaf Or Do You Have Serious Difficulty Hearing? No Information not available 12/09/2020 What Type Of Diet Are You Following? REGULAR [email or web address] Information not available 11/17/2014 Education Less Than 8th Grade [email or web address] Information not available 11/17/2014 Are There Any Guns Present In Your Home? No [email or web address] Information not available 11/17/2014 Hard Of Hearing Or Deaf In One Or Both Ears? No [email or web address] Information not available 11/17/2014 Legally Blind In One Or Both Eyes? No [email or web address] Information no t available 11/17/2014 Marital Status [email or web address] Informati on not available 11/17/2014 What Was The Date Of Your Most Recent Tobacco Screening? 07/22/2025 Information not available 07/22/2025 What Is Your Relationship Status? [email or web address] Information not available 06/15/2021 Do You Use Your Seat Belt Or Car Seat Routinely? Yes Information not available 12/09/2020 Seat Belts Used Routinely Yes [email or web address] Information not available 11/17/2014 Smoke Alarm In Home Yes [email or web address] Information not available 11/17/2014 Do You Have Smoke And Carbon Monoxide Detectors In Your Home? Yes Information not available 12/09/2020 Are You Passively Exposed To Smoke? No Information no t available 12/09/2020 How Much Tobacco Do You Smoke? No [email or web address] Information not available 11/17/2014 General Stress Level Medium [email or web address] Information not available 11/17/2014 Do You Use Sunscreen Routinely? No [email or web address] Information not available 11/17/2014 Has Tobacco Cessation Counseling Been Provided? No Information not available 01/11/2023 Sex: Male Functional Status Question Answer Note LastModified by Organizat ion Details LastModified Time Do you use any illicit or recreational drugs? No Information not available 12/09/2020 Do you or have you ever used any other forms of tobacco or nicotine? No Information not available 12/09/2020 What is your level of alcohol consumption? None [email or web address] Information not available 11/17/2014 Do you or have you ever used smokeless tobacco? Never used smokeless tobacco Information not available 06/19/2019 Are you currently employed? No Information not available 12/09/2020 Are you able to care for yourself independently? 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 Never used electronic cigarettes Information not available 06/19/2019 What is your exercise level? Moderate Information not available 11/17/2014 Mental Status Question Answer Note LastModified by Organization D etails LastModified Time Do you feel stressed (tense, restless, nervous, or anxious, or unable to sleep at night)? [id number] Information not available 09/04/2022 Family History Relationship Description Onset Age of this Age Resolved Age Notes LastModified by Organization Details LastModified Time Brother Diabetes mellitus [email or web address] Not available 05/2016 11:38:52 Sister Diabetes mellitus [email or web address] Not available 05/2016 11:38:52 Father Diabetes mellitus 55 [email or web address] Not available 05/2016 11:38:52 Mother Coronary arterioscler osis [email or web address] Not available 2017 16:05:44 Mother Diabetes mellitus [email or web address] Not available 2017 16:05:56 Mother Hypertensive disorder [email or web address] Not available 2018 15:13:35 Medical History Condition Response Diabetes Y Allergies/Hayfever Y Muscle, Joint, or Bone Problems Y Coronary Artery Disease Y High Blood Pressure Y Arthritis Y Acid Reflux (GERD) Y Stroke Y Kidney or Bladder Problems Y GI Problems Y Substance Abuse Y Kidney Disease Y Immunizations Vaccine Type Date Status Note Provider Nam e and Address Organization Details Recorded Time COVID-19, mRNA, LNP-S, PF, 100 mcg/0.5mL dose or 50 mcg/0.25mL dose 1 completed Amy Stewart RN null, [place] - [facility] 02/15/2021 11:02:49 SARS-COV-2 (COVID-19) vaccine, UNSPECIFIED 1 completed Shanon Priest [place], [place] [facility] 03/15/2021 11:32:11 SARS-COV-2 (COVID-19) vaccine, UNSPECIFIED 2 completed Cara Milian [place], [place] [facility] 03/06/2022 16:32:23 zoster recombinant 2 completed MYNOR Burk Attn: Accounting,[address] [facility], [place], [address], [place] [facility] 05/11/2023 15:47:23 zoster recombinant 3 completed MYNOR Burk Attn: Accounting[address] [facility], [place], [address], [place] [facility] 05/11/2023 15:47:43 influenza, whole 6 completed Not Available [facility] 07/22/2025 15:48:31 Novel [id number], all formulations 9 completed Not Available [facility] 07/22/2025 15:48:31 COVID-19, mRNA, LNP-S, PF, 100 mcg/0.5mL dose or 50 mcg/0.25mL dose 2 completed Not Available [facility] 07/22/2025 15:48:31 zoster recombinant 2 completed Not Available [facility] 07/22/2025 15:48:31 zoster recombinant 3 completed Not Available [facility] 07/22/2025 15:48:31 Tdap 4 completed MYNOR Burk Attn: Accounting,[address] [facility], [place], [address], [place] [facility] 03/29/2015 11:44:42 Influenza, split virus, quadrivalent, preservative 0 completed [place]IL[place] [facility] 12/03/2019 11:20:46 Influenza, split virus, quadrivalent, preservative 0 completed Amy Stewart [place] [facility] 08/18/2020 12:05:49 Influenza, split virus, quadrivalent, PF 1 completed Shanon [place] [facility] 06/15/2021 16:21:43 Pneumococcal conjugate PCV 13 1 completed Shanon Priest [place] [facility] 09/13/2021 14:31:54 Influenza, recombinant, quadrivalent, PF 2 completed Cara Milian [place], [place] - [facility] 09/04/2022 14:58:39 pneumococcal polysaccharide PPV23 4 completed Belen Parham null, [place] - [facility] 11/17/2014 10:32:13 Hep B, adult 3 completed TITI Burk-BC Attn: Accounting[address] [place], [place], [address] [place] [address], [facility] - [facility] 05/18/2023 15:02:54 Pneumococcal conjugate PCV20, polysaccharide [id number] conjugate, adjuvant, PF 3 completed TITI Burk-VARSHA Attn: Accounting[address] [place], [place], [address] [place] [address], [facility] - [facility] 05/18/2023 15:02:54 Hep B, adult 4 completed TITI Burk-VARSHA Attn: Accounting[address] [place], [address] [place] [address], [facility] 11/01/2023 17:31:35 Hep B, adult 4 completed Shanon Priest [place] null, [place] [facility] 03/03/2024 17:39:10 Influenza, split virus, trivalent, preservative 4 completed TITI Burk-VARSHA Attn: Accounting[address] [place], [place], [address] [place] [address], [facility] - [facility] 06/09/2024 17:06:58 Past Encounters Encounter ID Performer Location Encounter Start Date Encounter Closed Date Diagnosis/Indication Diagnosis SNOMED-CT Code Diagnosis ICD10 Code Diagnosis IMO Codes Diagnosis Note [id number] Ahsan Barillas MD [facility] [address], [place] [address] 11/27/2014 10:01:18 11/30/2014 10:01:03 Type 2 diabetes mellitus without complication [id number] see opthalmolo gist Obesity 972763878 Chronic re nal impairment 856155464 Essential hypertension 07313965 Coronary atherosclerosis 465628599 patient has not seen Cardiology yet has an appointmen t for 12/09/2014 informatio n given to the patient Acute gastritis 13485652 Osteoarthritis 598863443 [id number] Ahsan Barillas MD [facility] [address] [address] 4 03/29/2015 09:43:27 03/30/2015 18:04:39 Type 2 diabetes mellitus without complication 646141103 see opthalmolo gist Obesity 317851614 Chronic re nal impairment 913770377 Essential hypertension 71743684 Osteoarthritis 528762406 Vitiligo 41282437 Patient does not wish to try any creams at this time Gastroesop hageal reflux disease 757641352 Patient will continue Omeprazole (he has at home) Hyperlipidemia 51940002 [id number] Josué Victoria [facility] [address] [phone] 07/30/2015 10:01:49 08/02/2015 13:59:56 Type 2 diabetes mellitus without complication 744881236 E11.9 see opthalmolo gist Obesity 772943850 E66.9 diet weight loss exercise Chronic re nal impairment 758488110 N18.9 Patient refuses Influenza vaccine Essential hypertension 97320584 I10 Osteoarthritis 483448682 M19.90 Vitiligo 34554031 L80 Patient does not wish to try any creams at this time Gastroesop hageal reflux disease 846115806 K21.9 Patient will continue Omeprazole (he has at home) Hyperlipidemia 54563192 E78.5 Pain of hip region 87775 002 M25.551 Nocturia 222336540 R35.1 [id number] Josué Victoria [facility] [address], [place] [address] 01/07/2016 10:32:54 01/10/2016 13:34:18 Type 2 diabetes mellitus without complication 920554451 E11.9 see opthalmolo gist Obesity 131803180 E66.9 diet weight loss exercise Chronic re nal impairment 055784706 N18.9 Essential hypertension 53314090 I10 Osteoarthritis 348720718 M19.90 Vitiligo 99406013 L80 Patient does not wish to try any creams at this time Gastroesop hageal reflux disease 704728536 K21.9 Patient will continue Omeprazole (he has at home) Hyperlipidemia 77541173 E78.5 Nocturia 457376178 R35.1 better but will increase Cardura 1 to 2mg daily Disorder of nail 6261227 8 L60.9 [id number] Ahsan Barillas MD [facility] [address] [id number] 09/22/2016 10:33:28 09/28/2016 13:00:36 Chronic renal impairment 538480403 N18.9 Osteoarthritis 774473363 M19.90 Patient has Meloxicam 7.5mg once daily per Dr. Marc Sanabria Hyperlipidemia 99566927 E78.5 Essential hypertension 85630843 I10 Gastroesop hageal reflux disease 033898628 K21.9 Continue Pantoprazo le Multiple complications due to type 2 diabetes mellitus 047541371 E11.8 Coronary atherosclerosis 371490619 I25.84 patient has not seen Cardiology yet has an appointmen t for 03/2016 informatio n given to the patient Vitiligo 00391509 L80 Patient does not wish to try any creams at this time Pain in left foot 519809 6360 45177 M79.672 Gouty arthritis 77429790 M10.00 Polyp of gallbladder 197 042932 K82.4 will wait for surgical consult as patient not having any symptoms Nocturia 404499222 R35.1 Continue Cardura 2mg daily [id number] Ahsan Barillas MD [facility] [address] [phone] 12/22/2016 10:46:35 12/28/2016 13:07:01 Multiple complications due to type 2 diabetes mellitus 804613647 E11.8 Chronic re nal impairment 817409129 N18.9 [address] Nephrologi sts 11/2016 all kept the same Osteoarthritis 773157873 M19.90 Patient has Meloxicam 7.5mg once daily per Dr. Marc Sanabria Hyperlipidemia 70077973 E78.5 diet weight loss and exercise Essential hypertension 88714531 I10 Gastroesop hageal reflux disease 921680843 K21.9 Continue Pantoprazo le Coronary atherosclerosis 593468948 I25.84 patient has seen Cardiology 10/2016 --everythi ng kept the same Vitiligo 02713093 L80 Patient does not wish to try any creams at this time Pain in left foot 288007 1616 77695 M79.672 continue to follow up with [place] [place] [facility] Gouty arthritis 71888898 M10.00 will continue present meds Polyp of gallbladder 197 825742 K82.4 will wait for surgical consult as patient not having any symptoms Nocturia 897264772 R35.1 Continue Cardura 2mg daily Hematochezia 361206587 K 62.5 HIV screening 260045034 Z11.4 Screening for malignant neoplasm of prostate 806621382 Z12.5 Pruritus ani 62609136 L2 9.3 [id number] Joseph Stapleton MD [facility] [address] [place] [address] 04/05/2017 15:46:51 10/08/2017 12:14:17 Painless rectal bleeding 506306911 K62.5 [id number] Josué Victoria [facility] [address] [place] [address] 06/19/2017 14:09:34 06/23/2017 23:37:49 Multiple complications due to type 2 diabetes mellitus 854487368 E11.8 Chronic re nal impairment 619854083 N18.9 saw Nephrologi [facility] 11/2016 all kept the same Osteoarthritis 120149874 M19.90 Hyperlipidemia 04844255 E78.5 diet weight loss and exercise Essential hypertension 58742136 I10 Gastroesop hageal reflux disease 011342962 K21.9 Continue Pantoprazo le Coronary atherosclerosis 140945308 I25.84 patient has seen Cardiology 03/2017 --wendy pineda kept the same Vitiligo 42102236 L80 Patient does not wish to try any creams at this time Pain in left foot 385071 6809 78993 M79.672 continue to follow up with [facility] Dr. Adame Polyp of gallbladder 197 928374 K82.4 will send for surgical consult for polyp of GB Nocturia 925089014 R35.1 Continue Cardura 2mg daily Pruritus ani 50547001 L2 9.3 Calcaneal spur 52724871 M77.32 Vaccine de clined by patient 8460968205 02 Z28.21 refuses influenza vaccine [id number] Ahsan Barillas MD [facility] [address] [place] [address] 10/19/2017 10:36:12 10/30/2017 15:28:59 Multiple complications due to type 2 diabetes mellitus 118282089 E11.8 Chronic re nal impairment 352600427 N18.9 saw Nephrologi sts 11/2016 all kept the same needs f/u visit schedule nicole stressed to stop use of NSAIDS Osteoarthritis 129133475 M19.90 use tylenol arthritis prn Hyperlipidemia 12215466 E78.5 diet weight loss and exercise Essential hypertension 42463841 I10 continue present meds Gastroesop hageal reflux disease 368764713 K21.9 Continue Pantoprazo le Coronary atherosclerosis 174804963 I25.84 patient has seen Cardiology 03/2017 --everythi ng kept the same patient has a cardiologi st appointmen t coming up per patient Vitiligo 77935931 L80 Patient does not wish to try any creams at this time Pain in left foot 840343 6695 34555 M79.672 continue to follow up with [facility] Dr. Adame Polyp of gallbladder 197 314771 K82.4 patient did not see surgeon will check on appointmen t--pt voices he was not aware he had an appointmen t for this problem Nocturia 096589190 R35.1 will have the patient increase cardura 2mg to 4 mg daily will have the patient see Urologist Pruritus ani 51511264 L2 9.3 maintain blood sugars under good control keep area dry Calcaneal spur 64395476 M77.32 continue to see [facility] Painless r ectal bleeding 039335051 K62.5 Stop using OTC Ibuprofen Patient has been scheduled with Dr. Stapleton on 11/01/2017 for evaluation of this problem [id number] Mecca Adams MD [facility] [address] [place] [address] 10/23/2017 09:53:54 11/02/2017 14:28:47 Polyp of gallbladder 681306726 K82.4 Diverticul osis of sigmoid colon 440229038 K57.30 [id number] Joseph Stapleton MD [facility] [address] [place] [address] 11/01/2017 15:36:04 11/28/2017 11:54:19 Bleeding internal hemorrhoids 15562727 K64.8 [id number] Nasir Wilson MD [facility] [address] [place] [address] 11/19/2017 10:04:39 11/19/2017 11:31:49 Increased frequency of urination 651391274 R35.0 Adult heal th examination 906368596 Z00.00 [id number] Ahsan Barillas MD [facility] [address] [place] [address] 02/15/2018 09:51:10 02/19/2018 08:13:40 Multiple complications due to type 2 diabetes mellitus 880525751 E11.8 Chronic re nal impairment 987989561 N18.9 saw Nephrologi sts 11/2016 all kept the same needs f/u visit schedule nicole stressed to stop use of NSAIDS Osteoarthritis 382298372 M19.90 use tylenol arthritis prn Hyperlipidemia 43391104 E78.5 diet weight loss and exercise Essential hypertension 64950214 I10 continue present meds Gastroesop hageal reflux disease 189003899 K21.9 Continue Pantoprazo le Coronary atherosclerosis 064383491 I25.84 patient has seen Cardiology 11/2017 --everythi ng kept the same patient has a cardiologi st veto bhandari coming up per patient in 6 months Vitiligo 41414298 L80 Patient does not wish to try any creams at this time Pain in left foot 595868 7034 18113 M79.672 continue to follow up with [facility] Dr. Adame Polyp of gallbladder 197 371010 K82.4 patient saw surgeon he is to have surgery --needs f/u appt Nocturia 010637058 R35.1 will have the patient continue Cardura 4 mg daily see Urologist as directed 05/2018 Pruritus ani 47444026 L2 9.3 maintain blood sugars under good control keep area dry Calcaneal spur 03839570 M77.32 continue to see [facility] Painless r ectal bleeding 535771778 K62.5 Seasonal a llergic rhinitis 629644073 J30.2 [id number] Ahsan Barillas MD [facility] [address] [place] [address] 05/06/2018 12:07:20 05/15/2018 13:44:58 Pain in right arm 256374712 M79.601 Follow-up visit 49750160 9 Z09 Pain of [facility] 74640153 M25.241 [id number] Nasir Wilson MD [facility] [address] [place] [address] 05/24/2018 10:45:05 05/29/2018 12:13:58 Large prostate 406068114 N40.0 [id number] Nasir Wilson MD [facility] [address] [place] [address] 05/31/2018 10:29:02 06/04/2018 16:35:24 Increased frequency of urination 125920855 R35.0 [id number] Alan Mondragon MD [facility] [address] [place] [address] 06/18/2018 16:46:19 08/07/2018 16:10:17 Internal hemorrhoids 33705578 K64.8 no active bleeding Lipoma of skin and subcutaneous tissue of trunk 398524779 D17.1 Cholestero losis of gallbladder 29496231 K82.4 By HX - NOT DOCUMENTED [id number] Ahsan Barillas MD [facility] [address] [place] [address] 06/21/2018 10:41:34 06/27/2018 16:37:49 Hyperlipidemia 18129224 E78.5 diet weight loss and exercise Essential hypertension 19608093 I10 continue present meds Multiple complications due to type 2 diabetes mellitus 340491218 E11.8 Chronic re nal impairment 241868059 N18.9 saw Nephrologi sts 11/2016 all kept the same needs f/u visit schedule nicole stressed to stop use of NSAIDS call office for appt Osteoarthritis 274020332 M19.90 use tylenol arthritis prn Gastroesop hageal reflux disease 762909413 K21.9 Continue Pantoprazo le Coronary atherosclerosis 556557422 I25.84 patient has seen Cardiology 06/2018 --everythi ng kept the same Pain in left foot 902603 0689 15851 M79.672 continue to follow up with [facility] [employer] Dr. Adame Polyp of gallbladder 197 785762 K82.4 Patient was told by GI to wait on surgery is to get abdominal u/s Nocturia 523417317 R35.1 will have the patient continue Cardura 4 mg daily saw Urologist as directed 05/2018 Calcaneal spur 47363933 M77.32 continue to see [facility] Seasonal a llergic rhinitis 021281975 J30.2 Patient refuses flu shot Pain of [place] region 29696618 M25.511 continue to see Orthopedic s at [facility] Received 2 steroid injections which have helped He is going to PT [id number] Ahsan Barillas MD [facility] [address] [place] [address] 11/01/2018 09:46:44 11/01/2018 14:31:38 Gastroesophageal reflux disease 131331823 K21.9 Continue Pantoprazo le Essential hypertension 34145763 I10 continue present meds Hyperlipidemia 93737830 E78.5 diet weight loss and exercise Multiple complications due to type 2 diabetes mellitus 019290503 E11.8 HA1C 9.9 today blood sugars not well controlled will add Glyburide 2.5mg once daily will continue Januvia 100mg daily stressed avoidance of sodas/juic es Chronic re nal impairment 494805975 N18.9 saw Nephrologi sts last 11/2016 needs f/u visit schedule nicole stressed to stop use of NSAIDS Osteoarthritis 167627081 M19.90 use tylenol arthritis prn Coronary atherosclerosis 882260779 I25.84 patient has seen Cardiology 06/19/2018 --everythi ng kept the same has follow up in 2019 Pain of oulder region 80569717 M25.511 He has not seen Orthopedic s since 07/31/2018 He is now having L shoulder pain Received 2 steroid injections to R shoulder which have helped He went to PT for R shoulder Seasonal a llergic rhinitis 571853503 J30.2 Patient refuses flu shot Polyp of gallbladder 197 921004 K82.4 Patient was told by GI to wait on surgery got abdominal u/s=wnl Nocturia 713008692 R35.1 will have the patient continue Cardura 4 mg daily saw Urologist as directed 05/2018 Calcaneal spur 07496178 M77.32 continue to see [facility] Pain in left foot 779276 5538 54674 M79.672 continue to follow up with [facility] [employer] Dr. Adame Pain in left knee 472514 1754 48856 M25.562 Standardiz ed adult depression screening tool completed 7051534548 53268 Z13.89 [id number] Nasir Wilson MD [facility] [address] [place] [address] 12/25/2018 09:55:09 12/26/2018 09:17:08 Benign prostatic hyperplasia without outflow obstruction 169062759 N40.0 [id number] Ahsan Barillas MD [facility] [address] [place] [address] 02/28/2019 11:32:31 02/28/2019 18:00:31 Multiple complications due to type 2 diabetes mellitus 425924272 E11.8 HA1C 9.4 today blood sugars not well controlled will continue Glyburide but increase to 5mg once daily will continue Januvia 100mg daily stressed avoidance of sodas/juic es Hyperlipidemia 35012794 E78.5 diet weight loss and exercise Essential hypertension 15871923 I10 continue present meds Obesity 314241983 E66.9 diet weight loss exercise Chronic re nal impairment 611310677 N18.9 saw Nephrologi sts last 11/2016 needs f/u visit schedule nicole stressed to stop use of NSAIDS Osteoarthritis 232363678 M19.90 use tylenol arthritis prn Coronary atherosclerosis 407168436 I25.84 patient has seen Cardiology 06/19/2018 --everythi ng kept the same has follow up in 2019 Pain of sh [place] 02630151 M25.511 He has not seen Orthopedic s since 07/31/2018 He is now having L shoulder pain Received 2 steroid injections to R shoulder which have helped He went to PT for R shoulder Gastroesop hageal reflux disease 666776710 K21.9 Continue Pantoprazo le Seasonal a llergic rhinitis 588644934 J30.2 Polyp of gallbladder 197 592074 K82.4 Patient was told by GI to wait on surgery got abdominal u/s=wnl Calcaneal spur 75179305 M77.32 continue to see [facility] Pain in left foot 686980 2551 48978 M79.672 continue to follow up with [facility] [employer] Dr. BrownOA and heel spursOrtho tics, weight loss Pain in left knee 673164 2850 77971 M25.562 OA Benign pro static hyperplasia without outflow obstruction 379174922 N40.0 will have the patient continue Cardura 4 mg daily saw Urologist as directed 11/2018 Pruritus ani 25522545 L2 9.3 maintain blood sugars under good control keep area dry Localized vitiligo 59433 7005 L80 [id number] Nasir Wilson MD [facility] [address] [place] [address] 06/13/2019 09:30:04 06/18/2019 12:56:09 Increased frequency of urination 506358638 R35.0 [id number] Ahsan Barillas MD [facility] [address] [place], [place] [address] 06/19/2019 13:57:58 06/20/2019 09:04:45 Follow-up visit 090866300 Z09 Subacute stroke with R sided hemiparesi s Multiple complications due to type 2 diabetes mellitus 012353826 E11.8 HA1C 10.1 today blood sugars not well controlled stressed avoidance of sodas/juic es/LSM continue Metformin 500mg bid -started at [place] continue Januvia 100mg daily stop Glyburide 5mg daily start Jardiance 10mg once daily History of cerebrovascular accident 221029273 Z86.73 Right hemiparesis 428921 009 G81.90 [id number] Ahsan Barillas MD [facility] [address], [place] [address] 07/04/2019 15:14:27 07/06/2019 12:31:06 Multiple complications due to type 2 diabetes mellitus 484338793 E11.8 HA1C 10.1 today blood sugars not well controlled stressed avoidance of sodas/juic es/LSM continue Metformin 500mg bid -started at [place] continue Januvia 100mg daily continue Jardiance 10mg once daily Glyburide was stopped at last visit Essential hypertension 94076680 I10 continue present meds History of cerebrovascular accident 878647801 Z86.73 subacute stroke with R hemiparesi s on 06/16/2019 Right hemiparesis 192315 009 G81.90 Hyperlipidemia 77048267 E78.5 diet weight loss and exercise Obesity 085179200 E66.9 diet weight loss exercise Chronic re nal impairment 553101895 N18.9 saw Nephrologi sts last 03/26/2019 needs f/u in 1 year stressed to stop use of NSAIDS Osteoarthritis 523008641 M19.90 use tylenol arthritis prn Coronary atherosclerosis 484291876 I25.84 patient has seen Cardiology 06/19/2018 --everythi ng kept the same has follow up in 2019 Pain of sh [place] region 03443922 M25.511 He has not seen Orthopedic s since 07/31/2018 He is now having L shoulder pain Received 2 steroid injections to R shoulder which have helped He went to PT for R shoulder Gastroesop hageal reflux disease 987299607 K21.9 Continue Pantoprazo le Benign pro static hyperplasia without outflow obstruction 045031443 N40.0 will have the patient continue Cardura 4 mg daily saw Urologist as directed 11/2018 Seasonal a llergic rhinitis 826879486 J30.2 Polyp of gallbladder 197 590562 K82.4 Patient was told by GI to wait on surgery got abdominal u/s=wnl Pruritus ani 42017152 L2 9.3 maintain blood sugars under good control keep area dry Localized vitiligo 94126 7005 L80 Influenza vaccination declined 765498730 Z28.21 [id number] [facility] [address], [place] [address] 08/20/2019 11:39:48 08/27/2019 08:28:51 Follow-up visit 916876243 Z09 Ischemic stroke 08/10/2019 ([place] stroke) and subacute stroke 06/16/2019 with R sided hemiparesi s/weakness Multiple complications due to type 2 diabetes mellitus 401008826 E11.8 HA1C 7.4 today blood sugars not well controlled stressed avoidance of sodas/juic es/LSM continue Metformin 500mg bid -started at [place] continue Januvia 100mg daily continue Jardiance 10mg once daily History of cerebrovascular accident 203610802 Z86.73 Ischemic stroke with R hemiparesi s on 06/16/2019 and now on 08/10/2019 Right hemiparesis 541612 009 G81.90 Acute depression 9232836 08 F32.9 Essential hypertension 06591065 I10 continue present meds [id number] Ahsan Barillas MD [facility] [address] [place] [address] 09/19/2019 10:48:33 09/22/2019 15:29:48 Multiple complications due to type 2 diabetes mellitus 448121677 E11.8 HA1C6.6.8 today blood sugars well controlled stressed avoidance of sodas/juic es/LSM continue Metformin 500mg bid -started at [place] continue Januvia 100mg daily continue Jardiance 10mg once daily Essential hypertension 48968514 I10 continue present medschecks b/p at home 104/70-120 -80 range Follow-up visit 95049735 9 Z09 Ischemic stroke 08/10/2019 ([place] stroke) and subacute stroke 06/16/2019 with R sided hemiparesi s/weakness History of cerebrovascular accident 981282445 Z86.73 Ischemic stroke with R hemiparesi s on 06/16/2019 and now on 08/10/2019 Right hemiparesis 477577 009 G81.90 improving- walking with cane and R leg brace Acute depression 2656631 08 F32.9 fluoxetine helping with his symptoms [id number] Josué Victoria [facility] [address], [place] [address] 11/20/2019 10:22:58 11/24/2019 09:10:56 Multiple complications due to type 2 diabetes mellitus 744091864 E11.8 HA1C 6.7.today blood sugars well controlled stressed avoidance of sodas/juic es/LSM continue Metformin 500mg bid -started at [place] continue Januvia 100mg daily continue Jardiance 10mg once daily Essential hypertension 15155868 I10 continue present medschecks b/p at home 104/70-120 -80 range Hyperlipidemia 57591488 E78.5 diet weight loss and exercise History of cerebrovascular accident 508326028 Z86.73 Ischemic stroke with R hemiparesi s on 06/16/2019 and now on 08/10/2019 Ischemic stroke 08/10/2019 ([place] stroke) and subacute stroke 06/16/2019 with R sided hemiparesi s/weakness Right hemiparesis 169051 009 G81.90 improving- walking with cane and R leg brace Acute depression 6816883 08 F32.9 fluoxetine helping with his symptoms Seasonal a llergic rhinitis 940551629 J30.2 Benign pro static hyperplasia without outflow obstruction 283171492 N40.0 will have the patient continue Cardura 4 mg daily saw Urologist as directed 11/2018 Complainin g of erectile dysfunction 879626684 N52.9 Body mass index 30+ - obesity 044953452 Z68.31 BMI 32.9Health y weight range 100-130 Ht5' 1.5 Screening for malignant neoplasm of prostate 553207678 Z12.5 agrees to PSA lab testing refuses RANULFO Administra tion of influenza vaccine 75672888 Z23 [id number] Ahsan Barillas MD [facility] [address] [place] [address] 02/24/2020 14:37:05 02/25/2020 07:22:47 Multiple complications due to type 2 diabetes mellitus 149049874 E11.8 HA1C 6.7 at last visit blood sugars well controlled stressed avoidance of sodas/juic es/LSM continue Metformin 500mg bid -started at [place] continue Januvia 100mg daily continue Jardiance 10mg once daily Essential hypertension 54349651 I10 continue present medschecks b/p at home 104/70-120 -80 range Hyperlipidemia 57170124 E78.5 diet weight loss and exercise History of cerebrovascular accident 131400220 Z86.73 Ischemic stroke with R hemiparesi s on 06/16/2019 and now on 08/10/2019 Ischemic stroke 08/10/2019 ([place] stroke) and subacute stroke 06/16/2019 with R sided hemiparesi s/weakness Right hemiparesis 373318 009 G81.90 It appears patient was seen on 01/14 per [facility] who ordered Gabapentin 200mg tid for ptPatient is not taking Gabapentin 200mg tid as it doesnt work for himPatient voices Gabapentin 300mg tid given by this office helps but could use improvemen tPatient to increase Gabapentin 300mg tid to 600mg tidimprovi ng-walking with cane and R leg brace Acute depression 4662484 08 F32.9 fluoxetine helping with his symptoms Seasonal a llergic rhinitis 793971115 J30.2 Benign pro static hyperplasia without outflow obstruction 444358977 N40.0 will have the patient continue Cardura 4 mg daily saw Urologist as directed 11/2018 Complainin g of erectile dysfunction 675026052 N52.9 Body mass index 30+ - obesity 349835573 Z68.31 BMI 32.9Health y weight range 100-130 Ht5' 1.5 Screening for malignant neoplasm of prostate 033142385 Z12.5 1.1 PSA normal refuses RANULFO Spasticity as sequela of stroke 4646084262 03682 R25.2 [id number] Ahsan Barillas MD [facility] [address] [place] [address] 05/24/2020 10:33:02 05/25/2020 05:51:29 Multiple complications due to type 2 diabetes mellitus 068097173 E11.8 Fasting blood sugar 138 today HA1C 6.7 at last visit in office blood sugars well controlled stressed avoidance of sodas/juic es/LSM continue Metformin 500mg bid -started at [facility] continue Januvia 100mg daily continue Jardiance 10mg once daily Essential hypertension 83067899 I10 continue present medschecks b/p at home 104/70-120 -80 range Hyperlipidemia 73476146 E78.5 diet weight loss and exercise History of cerebrovascular accident 129129518 Z86.73 Ischemic stroke with R hemiparesi s on 06/16/2019 and now on 08/10/2019 Ischemic stroke 08/10/2019 ([place] stroke) and subacute stroke 06/16/2019 with R sided hemiparesi s/weakness Right hemiparesis 988347 009 G81.90 It appears patient was seen on 01/14 per [facility] who ordered Gabapentin 200mg tid for ptPatient is not taking Gabapentin 200mg tid as it doesnt work for himPatient voices Gabapentin 300mg tid given by this office helps but could use improvemen tPatient to increase Gabapentin 300mg tid to 600mg tidimprovi ng-walking with cane and R leg brace Acute depression 0005244 08 F32.9 fluoxetine helping with his symptoms Seasonal a llergic rhinitis 372738779 J30.2 Benign pro static hyperplasia without outflow obstruction 272078812 N40.0 will have the patient continue Cardura 4 mg daily saw Urologist as directed 11/2018 Complainin g of erectile dysfunction 809215894 N52.9 doesnt think generic viagra helped him Body mass index 30+ - obesity 910691725 Z68.31 BMI 32.9Health y weight range 100-130 Ht5' 1.5 Screening for malignant neoplasm of prostate 943550241 Z12.5 1.1 PSA normal refuses RANULFO Spasticity as sequela of stroke 8848949650 67848 R25.2 [id number] Tegan Cohen MD [facility] [address] [place] [address] 08/16/2020 11:52:27 08/17/2020 06:34:47 Multiple complications due to type 2 diabetes mellitus 976728131 E11.8 Hyperlipidemia 17915260 E78.5 Essential hypertension 67242543 I10 Complainin g of erectile dysfunction 467541472 N52.9 doesnt think generic viagra helped him Body mass index 30+ - obesity 129690066 Z68.31 BMI 32.9Health y weight range 100-130 Ht5' 1.5 [id number] Tegan Cohen MD [facility] [address] [place] [address] 08/18/2020 11:55:54 08/19/2020 08:13:31 Administration of influenza vaccine 50443722 Z23 [id number] Ahsan Barillas MD [facility] [address] [place] [address] 12/09/2020 14:33:08 12/14/2020 17:23:55 Multiple complications due to type 2 diabetes mellitus 550938612 E11.8 Fasting blood sugar 180 today HA1C 6.7 at last visit in office blood sugars well controlled stressed avoidance of sodas/juic es/LSM increase Metformin 500mg bid -to 1000mg bid continue Januvia 100mg daily continue Jardiance 10mg once daily Essential hypertension 46986023 I10 continue present medschecks b/p at home 104/70-120 -80 range Hyperlipidemia 82856282 E78.5 diet weight loss and exercise History of cerebrovascular accident 012560399 Z86.73 Ischemic stroke with R hemiparesi s on 06/16/2019 and on 08/10/2019 Ischemic stroke 08/10/2019 ([place] stroke) and subacute stroke 06/16/2019 with R sided hemiparesi s/weakness Right hemiparesis 310628 009 G81.90 It appears patient was seen 11/04/2020 er [facility] who discontinu ed Gabapentin improving- walking with cane and R leg brace Acute depression 7930306 08 F32.9 fluoxetine helping with his symptoms Seasonal a llergic rhinitis 708608650 J30.2 Benign pro static hyperplasia without outflow obstruction 340730095 N40.0 will have the patient continue Cardura 4 mg daily saw Urologist as directed 11/2018 Complainin g of erectile dysfunction 230287478 N52.9 doesnt think generic viagra helped him Body mass index 30+ - obesity 571611886 Z68.31 BMI 32.9Health y weight range 100-130 Ht5' 1.5 Screening for malignant neoplasm of prostate 284998648 Z12.5 1.1 PSA normal refuses RANULFO Spasticity as sequela of stroke 9291094002 67921 R25.2 Neurologis t gave tizanidine 4mg every 6 hours seen 11/2020 Pain in right knee 73096 68941 76530 M25.561 R Knee very painful and swollenPat ient to start PT ordered by neurologis t Candidal balanitis 89964 007 B37.42 [id number] Ahsan Barillas MD [facility] [address] [place] [address] 02/15/2021 10:59:32 02/16/2021 15:31:11 Acute depression 210626685 F32.9 fluoxetine helping with his symptoms patient ordered #90 on 12/09/[address] stopped medication 08/2020, patient not sure why Patient is sad and crying Patient wants to take his medication Will check with pharmacy when RX last filled Benign pro static hyperplasia 380998478 N40.0 Patient given Rx Cardura 4mg daily #90 on 12/09/[address] stopped medication 08/2020, patient not sure why Patient wants to take his medication Will check with pharmacy when RX last filled [id number] Ahsan Barillas MD [facility] [address] [place] [address] 03/15/2021 11:20:57 03/16/2021 18:56:14 Multiple complications due to type 2 diabetes mellitus 613855799 E11.8 Fasting blood sugar 180 today at home HA1C 6.7 at last visit in office HA1C 8.5 on 12/21/2020- patient eating chocolate twice weekly blood sugars well controlled stressed avoidance of sodas/juic es/LSM continue Metformin 1000mg bid continue Januvia 100mg daily continue Jardiance 10mg once daily BS at home 120-150 range will need to add insulin if BS trending upward-pat ient counseled on diet measures Essential hypertension 12202533 I10 continue present medschecks b/p at home 104/70-120 -80 range Hyperlipidemia 58253142 E78.5 diet weight loss and exercise cho 118 Trig 219 HDL 35 LDL 47 Avoid all breads, potatoes, cereal, pasta, rice, margarine, refined sugars, milk yogurt, ice cream, juices, soda (including diet), beer, and manmade or manufactur ed desserts. Enjoy steak, fish, chicken (no skin), pork, butter, vegetables , beans, nuts, whole eggs, cheese (low fat or skim), cream in your coffee. send hypertrigl yceridemia diet handout History of cerebrovascular accident 916769394 Z86.73 Ischemic stroke with R hemiparesi s on 06/16/2019 and on 08/10/2019 Ischemic stroke 08/10/2019 ([place] stroke) and subacute stroke 06/16/2019 with R sided hemiparesi s/weakness Right hemiparesis 211206 009 G81.90 It appears patient was seen 11/04/2020 er [facility] who discontinu ed Gabapentin improving- walking with cane and R leg brace Acute depression 9104259 08 F32.9 fluoxetine helping with his symptoms Seasonal a llergic rhinitis 598118812 J30.2 Benign pro static hyperplasia without outflow obstruction 235010043 N40.0 will have the patient continue Cardura 4 mg daily saw Urologist as directed 11/2018 PSA 1.1 Body mass index 30+ - obesity 271284827 Z68.31 BMI 32.9Health y weight range 100-130 Ht5' 1.5 Screening for malignant neoplasm of prostate 862879886 Z12.5 01/19/2021 1.1 PSA normal refuses RANULFO Spasticity as sequela of stroke 7673539107 48177 R25.2 Neurologis t gave tizanidine 4mg every 6 hours seen 11/2020 Pain in right knee 17817 81806 11282 M25.561 R Knee very painful and swollenPat ient to start PT ordered by neurolognaomi tapia 79917 007 B37.42 initially better but has now returned advised to keep blood sugar under control Steatotic liver disease K76.0 Drank a lot of alcohol during his younger days He stopped alcohol consumptio n 20 years ago Patient has been referred to GI appt pending 01.19.2021 liver u/s shows steatosis of liver Abnormal l iver function 88186366 K76.89 12/21/2020 AST 149 ALT 296 ALK P. 129 01/19/2021 AST 63 ALT 88 Alk P 132 Liver u/s shows fatty liver Patient referred to GI appt pending Patient a repeat colonoscop y Complainin g of erectile dysfunction 338126967 N52.9 doesnt think generic viagra helped him or cialis voices needs something stronger offered urologist consultati on for this problem patient wishes to wait for now Screening for malignant neoplasm of colon 234871340 Z12.11 needs repeat colonoscop y for colon polyps in 2017 Had GI appointmen t pending [id number] WEN ACEVEDO NP [facility] [address] [place] [address] 04/01/2021 11:04:02 04/01/2021 16:39:05 Coronary atherosclerosis 518227786 I25.10 Essential hypertension 30641651 I10 On cardura, lisinopril , metoprolol Managed by primary care Gastroesop hageal reflux disease 265428300 K21.9 History of cerebrovascular accident 962248338 Z86.73 CVA x 2 in 2019with right hemiparesi sOn ASA 81 mg daily Hyperlipidemia 70914934 E78.5 On atorvastat inManaged by primary care Multiple complications due to type 2 diabetes mellitus 529327952 E11.8 On Januvia, Jardiance, metformin Obesity 070596661 E66.9 Encouraged weight loss -Choosing low-fat, low-calori e foods -Eating smaller portions -Drinking water instead of sugary drinks -Being physically active Right hemiparesis 772032 009 G81.90 On tizanidine for muscle spasm Steatotic liver disease K76.0 NAFLD, likely with some effect of alcohol and ? hepatitis when youngerFat ty liver disease, likely multifacto rial with NAFLD with a component related to previous history of alcohol usePatient counseled at length regarding dietary changes and exercise targeting a sustained 5% - 10% weight loss. Treatment should be focused on optimizing control of the metabolic syndrome, which should reduce risk of cardiovasc ular disease and severity of liver disease. The use of a statin in NAFLD is safe, with no increased risk of drug-induc ed hepatotoxi city.Grover nue to work with PCP for blood sugar management Discussed with patient the concern that ongoing elevated liver enzymes can lead to liver fibrosis which can progress to cirrhosis. Cirrhosis is progressiv e liver damage with complicati ons of liver cancer, liver failure and . Hematochezia 600855971 K 92.1 History of tubular adenoma Vitiligo 88689577 L80 [id number] [facility] [address] [address] 05/13/2021 09:51:10 05/17/2021 07:41:05 Steatotic liver disease 154258892 K76.0 Fatty liver disease, likely multifacto rial with NAFLD with a component related to previous history of alcohol use, questionab le history of hepatitis AContinue weight loss and blood sugar control Patient counseled again egarding dietary changes and exercise targeting a sustained 5% - 10% weight loss. Treatment should be focused on optimizing control of the metabolic syndrome, which should reduce risk of cardiovasc ular disease and severity of liver disease. The use of a statin in NAFLD is safe, with no increased risk of drug-induc ed hepatotoxi city. Continue to work with PCP for blood sugar management . Encouraged continued EtOH abstinence . Discussed with patient the concern that ongoing elevated liver enzymes can lead to liver fibrosis which can progress to cirrhosis. Cirrhosis is progressiv e liver damage with complicati ons of liver cancer, liver failure and . Laboratory test result abnormal 245351511 R89.9 AMA minimally elevated to 20.9 on 04/01/2021Wi ll repeat in July 2021 Body mass index 30+ - obesity 566325369 Z68.32 Encouraged continued weight loss [id number] Ahsan Barillas MD [facility] [address] [place] [address] 06/15/2021 14:56:39 06/29/2021 16:38:53 Multiple complications due to type 2 diabetes mellitus 556559693 E11.8 Fasting blood sugar 118 today HA1C 7.2 blood sugars well controlled stressed avoidance of sodas/juic es/LSM continue Metformin 1000mg bid continue Januvia 100mg daily continue Jardiance 10mg once daily BS at home 120-150 range will need to add insulin if BS trending upward-pat ient counseled on diet measures Gastroesop hageal reflux disease 307976346 K21.9 Continue Pantoprazo le Hyperlipidemia 50387789 E78.5 diet weight loss and exercise cho 118 Trig 219 HDL 35 LDL 47 Avoid all breads, potatoes, cereal, pasta, rice, margarine, refined sugars, milk yogurt, ice cream, juices, soda (including diet), beer, and manmade or manufactur ed desserts. Enjoy steak, fish, chicken (no skin), pork, butter, vegetables , beans, nuts, whole eggs, cheese (low fat or skim), cream in your coffee. Essential hypertension 72038989 I10 continue present medschecks b/p at home 104/70-120 -80 range04/01BUN 11creat 0.53eGFR 172 History of cerebrovascular accident 585829983 Z86.73 Ischemic stroke with R hemiparesi s on 06/16/2019 and on 08/10/2019 Ischemic stroke 08/10/2019 ([place] stroke) and subacute stroke 06/16/2019 with R sided hemiparesi s/weakness Right hemiparesis 990440 009 G81.90 It appears patient was seen 1p er [facility] who discontinu ed Gabapentin improving- walking with cane and R leg brace Acute depression 9193230 08 F32.9 fluoxetine helping with his symptoms Seasonal a llergic rhinitis 067959484 J30.2 Benign pro static hyperplasia without outflow obstruction 733294162 N40.0 will have the patient continue Cardura 4 mg daily saw Urologist as directed 11/2018 PSA 1.1 Body mass index 30+ - obesity 935262808 Z68.31 BMI 32.9Health y weight range 100-130 Ht5' 1.5 Screening for malignant neoplasm of prostate 183626569 Z12.5 01/19/2021 1.1 PSA normal refuses RANULFO Spasticity as sequela of stroke 2880630754 21310 R25.2 Neurologis elisabet gave tizanidine 4mg every 6 hours seen 11/2020 Pain in right knee 44658 71628 36601 M25.561 R Knee very painful and swollenPat ient to start PT ordered by neurologis elisabet Candidal balanitis 55341 007 B37.42 initially better but has now returned advised to keep blood sugar under control Steatotic liver disease 969396087 K76.0 Drank a lot of alcohol during his younger days He stopped alcohol consumptio n 20 years ago Patient has been seen by GI 01.19.2021 liver u/s shows steatosis of liver Abnormal l iver function 29215628 K76.89 12/21/2020 AST 149 ALT 296 ALK P. 129 01/19/2021 AST 63 ALT 88 Alk P 132 Liver u/s shows fatty liver Patient referred to [facility] seen Patient needs a repeat colonoscop y Complainin g of erectile dysfunction 217815818 N52.9 doesnt think generic viagra helped him or cialis voices needs something stronger offered urologist consultati on for this problem patient wishes to wait for now Rectal polyp 05407668 K6 2.1 needs repeat colonoscop yhas been referred to [facility] 05/10/2017 -needs repeat 3-5 years Administra tion of influenza vaccine 66532424 Z23 [id number] Nasir Wilson MD [facility] [address] [place] [address] 08/03/2021 10:41:59 08/12/2021 14:02:52 Screening for disorder 739966084 Z13.9 [id number] Ahsan Barillas MD [facility] [address] [place] [address] 09/13/2021 10:54:43 09/14/2021 06:57:56 Essential hypertension 66600422 I10 continue present medschecks b/p at home 104/70-120 -80 range04/01BUN 11creat 0.53eGFR 172 Multiple complications due to type 2 diabetes mellitus 216008087 E11.8 Fasting blood sugar 118 today HA1C 7.2 blood sugars well controlled stressed avoidance of sodas/juic es/LSM continue Metformin 1000mg bid continue Januvia 100mg daily continue Jardiance 10mg once daily BS at home 120-150 range will need to add insulin if BS trending upward-pat ient counseled on diet measures Steatotic liver disease 168454472 K76.0 Drank a lot of alcohol during his younger days He stopped alcohol consumptio n 20 years ago Patient has been seen by GI 4. liver u/s shows steatosis of liver Hyperlipidemia 35407228 E78.5 diet weight loss and exercise cho 118 Trig 219 HDL 35 LDL 21cho 132trig 250HDL 39.4LDL 51Avoid all breads, potatoes, cereal, pasta, rice, margarine, refined sugars, milk yogurt, ice cream, juices, soda (including diet), beer, and manmade or manufactur ed desserts. Enjoy steak, fish, chicken (no skin), pork, butter, vegetables , beans, nuts, whole eggs, cheese (low fat or skim), cream in your coffee. Gastroesop hageal reflux disease 952840855 K21.9 Continue Pantoprazo le Acute depression 7645895 08 F32.9 fluoxetine helping with his symptoms History of cerebrovascular accident 948515674 Z86.73 Ischemic stroke with R hemiparesi s on 06/16/2019 and on 08/10/2019 Ischemic stroke 08/10/2019 ([place] stroke) and subacute stroke 06/16/2019 with R sided hemiparesi s/weakness Right hemiparesis 346615 009 G81.90 It appears patient was seen 1p er [facility] who discontinu ed Gabapentin improving- walking with cane and R leg bracesaw neurologis t who injected his arm and leg with BOTOX but patient doesnt think it helps-has f/u in 3 months Seasonal a llergic rhinitis 270698702 J30.2 Benign pro static hyperplasia without outflow obstruction 751241973 N40.0 will have the patient continue Cardura 4 mg daily saw Urologist as directed 11/2018 PSA 1.1PSA 1.2 on 08/03/2021 Body mass index 30+ - obesity 069413112 Z68.31 BMI 33Healthy weight range 100-130 Ht5' 1.5 Screening for malignant neoplasm of prostate 151564407 Z12.5 01/19/2021 1.1 PSA normal refuses RANULFO Spasticity as sequela of stroke 9195287568 87833 R25.2 Neurolognaomi bhandari gave tizanidine 4mg every 6 hours seen 11/2020Neur ologist injected botox last month to arm and leg not helping-allen s f/u in 3 months Pain in right knee 61467 02674 23122 M25.561 R Knee very painful and swollenPat ient to start PT ordered by neurolognaomi bhandari Candidal balanitis 04194 007 B37.42 initially better but has now returned advised to keep blood sugar under control Abnormal l iver function 05770242 K76.89 12/21/2020 AST 149 ALT 296 ALK P. 129 01/19/2021 AST 63 ALT 88 Alk P 65531// 021normal Liver u/s shows fatty liver Patient referred to GI has now seen-was to have repeat labs 07/2021 for slight abnormalit ies of AMA ant-his GI [employer] will order labs and if abnormal will need to see another GI Patient had repeat colonoscop y 06/2021 needs another one in 5 years Complainin g of erectile dysfunction 643666788 N52.9 doesnt think generic viagra helped him or cialis voices needs something stronger offered urologist consultati on for this problem patient wishes to wait for now Rectal polyp 53046326 K6 2.1 needs repeat colonoscop yhas [facility] 05/10/2017 -needs repeat 3-5 yearsHad colonoscop y on 06/14/2021 found to have diverticul osis and internal hemorrhoid s-needs repeat in 5 years 2025 Administra tion of pneumococcal vaccine 53767740 Z23 Vitamin D deficiency 347 34267 E55.9 Vitamin D 15.9Start Rx Vitamin D2 94225 IU once weekly for 12 weeksonce you complete RX buy otc vitamin D3 1000 IU once daily Chronic ki dney disease 359148724 N18.9 Last seen in 2019Needs follow up for ckd [id number] Ahsan Barillas MD [facility] [address] [place] [address] 12/05/2021 14:33:32 12/06/2021 05:12:02 Essential hypertension 87203059 I10 BP Goal: Less than 135/85BP Controlled : yes; per the JNC8 guidelines in the absence of renal disease and DMHealthy Weight: 5'1= 100-131 lbsDiscuss ed: Low sodium balanced diet, moderate exercise at least 3-4 times per week for an average of 40 minutesNex t Visit: 3month(s)c ontinue present medschecks b/p at home 104/70-120 -80 range07BUN 11creat 0.53eGFR 172 Hyperlipidemia 61098620 E78.5 diet weight loss and exercise cho 118 Trig 219 HDL 35 LDL 21cho 132trig 250HDL 39.4LDL 51Avoid all breads, potatoes, cereal, pasta, rice, margarine, refined sugars, milk yogurt, ice cream, juices, soda (including diet), beer, and manmade or manufactur ed desserts. Enjoy steak, fish, chicken (no skin), pork, butter, vegetables , beans, nuts, whole eggs, cheese (low fat or skim), cream in your coffee.con tinue Atorvastat in 40mg dailyconti nue Aspirin 81mg daily Osteoarthritis 800859443 M19.90 use tylenol arthritis prn Gastroesop hageal reflux disease 466190596 K21.9 Continue Pantoprazo le Multiple complications due to type 2 diabetes mellitus 137977484 E11.8 Fasting blood sugar 251 today HA1C 8.9 blood sugars well controlled stressed avoidance of sodas/juic es/LSM continue Metformin 1000mg bid continue Januvia 100mg daily will increase Jardiance 10mg once daily to 25mg once daily BS at home 130-250 range-he drinks soda daily 1-2 cans will need to add insulin if BS trending upward-pat ient counseled on diet measures Steatotic liver disease 291579232 K76.0 Drank a lot of alcohol during his younger days He stopped alcohol consumptio n 20 years ago Patient has been seen by GI 4. liver u/s shows steatosis of liver Acute depression 6454895 08 F32.9 fluoxetine helping with his symptomshe doesnt want to stop it History of cerebrovascular accident 515712359 Z86.73 Ischemic stroke with R hemiparesi s on 06/16/2019 and on 08/10/2019 Ischemic stroke 08/10/2019 ([place] stroke) and subacute stroke 06/16/2019 with R sided hemiparesi s/weakness Right hemiparesis 960539 009 G81.90 It appears patient was seen 11/04/2020 er [facility] who discontinu ed Gabapentin improving- walking with cane and R leg bracesaw neurologis t who injected his arm and leg with BOTOX but patient doesnt think it helps-had f/u 3 months on 12/01/21 received another 400 units Seasonal a llergic rhinitis 138918432 J30.2 Benign pro static hyperplasia without outflow obstruction 930654571 N40.0 will have the patient continue Cardura 4 mg daily PSA 1.2 on 08/03/2021 Body mass index 30+ - obesity 129634136 Z68.31 BMI 33Healthy weight range 100-130 Ht5' 1.5 Spasticity as sequela of stroke 4911961396 58638 R25.2 Neurologis t gave tizanidine 4mg every 6 hours seen just got refill at visitNeuro logist injected botox upper chest/arm/ leg Pain in right knee 22454 32824 67670 M25.561 R Knee very painful and swollenPat ient to start PT ordered by neurolognaomi bhandari Abnormal l iver function 40648347 K76.89 12/21/2020 AST 149 ALT 296 ALK P. 129 01/19/2021 AST 63 ALT 88 Alk P 47628/15/2 021normal Liver u/s shows fatty liver Patient referred to GI has now seen-was to have repeat labs 07/2021 for slight abnormalit ies of AMA ant-his GI [employer] will order labs and if abnormal will need to see another GI Patient had repeat colonoscop y 06/2021 needs another one in 5 years Complainin g of erectile dysfunction 077942248 N52.9 doesnt think generic viagra helped him or blank voices needs something stronger offered urologist consultati on for this problem-in the past he refused. Today he voices he wants to see urologist (12/05/2021 ) Chronic ki dney disease 560014962 N18.9 Last seen in 2019Needs follow up for ckdReferra l given on 09/13/2021 check on appointmen t Vitamin D deficiency 347 39992 E55.9 Vitamin D 15.8Start Rx Vitamin D2 85510 IU once weekly for 12 weeksonce you complete RX buy otc vitamin D3 1000 IU once daily [id number] Ahsan Barillas MD [facility] [address] [place] [address] 03/06/2022 15:39:38 03/07/2022 11:35:43 Multiple complications due to type 2 diabetes mellitus 174599727 E11.8 Fasting blood sugar 129 today HA1C 8.1 blood sugars well controlled stressed avoidance of sodas/juic es/LSM continue Metformin 1000mg bid continue Januvia 100mg daily will icontinue Jardiance 25mg once daily BS at home 130-250 range-he drinks soda daily 1-2 cans will add farxiga [address] notes Vitiligo 39969707 L80 Patient does not wish to try any creams at this time Essential hypertension 31274963 I10 BP Goal: Less than 135/85BP Controlled : yes; per the JNC8 guidelines in the absence of renal disease and DMHealthy Weight: 5'1= 100-131 lbsDiscuss ed: Low sodium balanced diet, moderate exercise at least 3-4 times per week for an average of 40 minutesNex t Visit: 3month(s)c ontinue present medschecks b/p at home 104/70-120 -80 range04/01BUN 11creat 0.53eGFR 172Cardiol ogist increased Lisinopril 20mg to 40mg daily and gave 6 months Hyperlipidemia 75955738 E78.5 diet weight loss and spysmmgw17 /02/2022ch o 112trig 177HDL 99HOP27 06/15/2021 cho 132trig 250HDL 39.4LDL 51 01/01/2020 cho 112trig 177HDL 32LDL 35Avoid all breads, potatoes, cereal, pasta, rice, margarine, refined sugars, milk yogurt, ice cream, juices, soda (including diet), beer, and manmade or manufactur ed desserts. Enjoy steak, fish, chicken (no skin), pork, butter, vegetables , beans, nuts, whole eggs, cheese (low fat or skim), cream in your coffee.con tinue Atorvastat in 40mg dailyconti nue Aspirin 81mg daily Osteoarthritis 888711825 M19.90 use tylenol arthritis prn Gastroesop hageal reflux disease 587982170 K21.9 Continue Pantoprazo le Steatotic liver disease 266342312 K76.0 Drank a lot of alcohol during his younger days He stopped alcohol consumptio n 20 years ago Patient has been seen by GI 4. liver u/s shows steatosis of liver History of cerebrovascular accident 317662794 Z86.73 Ischemic stroke with R hemiparesi s on 06/16/2019 and on 08/10/2019 Ischemic stroke 08/10/2019 ([place] stroke) and subacute stroke 06/16/2019 with R sided hemiparesi s/weakness Seasonal a llergic rhinitis 453204202 J30.2 Benign pro static hyperplasia without outflow obstruction 234403630 N40.[address] recommends stopping Cardura 4 mg daily PSA 1.2 on 08/03/2021 Body mass index 30+ - obesity 872109603 Z68.31 BMI 33Healthy weight range 100-130 Ht5' 1.5 Spasticity as sequela of stroke 6051386854 71662 R25.2 Neurologis t gave tizanidine 4mg every 6 hours seen just got refill at visitNeuro logist injected botox upper chest/arm/ legPatient seen by neurologis t january f/u 3 months-get ting botox Abnormal l iver function 91540865 K76.89 12/21/2020 AST 149 ALT 296 ALK P. 129 01/19/2021 AST 63 ALT 88 Alk P 37239/15/2 [id number] /03/2022no rmalLiver u/s shows fatty liver Patient referred to GI has now seen-was to have repeat labs 07/2021 for slight abnormalit ies of AMA ant-his GI [employer] will order labs and if abnormal will need to see another GI Patient had repeat colonoscop y 06/2021 needs another one in 5 years Chronic ki dney disease 276449844 N18.9 [id number] al given on 09/13/2021 seen on 02/08/2022 follow up in 1 year Vitamin D deficiency 347 87426 E55.9 Vitamin D 15.8Start Rx Vitamin D2 87088 IU once weekly for 12 weeksonce you complete RX buy otc vitamin D3 1000 IU once daily Major depr essive disorder 064966350 F32.9 fluoxetine helping with his symptomshe doesnt want to stop it [id number] Ahsan Barillas MD [facility] [address] [place] [address] 06/02/2022 14:33:30 06/06/2022 16:19:23 Essential hypertension 69799995 I10 BP Goal: Less than 135/85BP Controlled : yes; per the JNC8 guidelines in the absence of renal disease and DMHealthy Weight: 5'1= 100-131 lbsDiscuss ed: Low sodium balanced diet, moderate exercise at least 3-4 times per week for an average of 40 minutesNex t Visit: 3month(s)c ontinue present medschecks b/p at home 104/70-120 -80 range04/01BUN 11creat 0.53eGFR 172Cardiol ogist increased Lisinopril 20mg to 40mg daily and gave 6 months Hyperlipidemia 70157369 E78.5 diet weight loss and oatkgsuk94 /02/2022ch o 112trig 177HDL 17VBG48 06/15/2021 cho 132trig 250HDL 39.4LDL 51 01/01/2020 cho 112trig 177HDL 32LDL 35Avoid all breads, potatoes, cereal, pasta, rice, margarine, refined sugars, milk yogurt, ice cream, juices, soda (including diet), beer, and manmade or manufactur ed desserts. Enjoy steak, fish, chicken (no skin), pork, butter, vegetables , beans, nuts, whole eggs, cheese (low fat or skim), cream in your coffee.con tinue Atorvastat in 40mg dailyconti nue Aspirin 81mg daily Gastroesop hageal reflux disease 799910392 K21.9 Continue Pantoprazo le Multiple complications due to type 2 diabetes mellitus 528675635 E11.8 Fasting blood sugar 129 today HA1C 8.3-Better blood sugars well controlled stressed avoidance of sodas/juic es/LSM continue Metformin 1000mg bid continue Januvia 100mg daily will continue Jardiance 25mg once daily BS at home 130-250 range-he drinks soda daily 1-2 cans will d/c farxiga 5 mg per [address]i [address] notes as patient on Jardiance Vitiligo 36140147 L80 HandsPatie nt does not wish to try any creams at this time Osteoarthritis 484273344 M19.90 use tylenol arthritis prn Steatotic liver disease 328359325 K76.0 Drank a lot of alcohol during his younger days He stopped alcohol consumptio n 20 years ago Patient has been seen by GI 01.19.2021 liver u/s shows steatosis of liver Major depr essive disorder 083915327 F32.9 fluoxetine helping with his symptomshe doesnt want to stop it History of cerebrovascular accident 709829712 Z86.73 Ischemic stroke with R hemiparesi s on 06/16/2019 and on 08/10/2019 Ischemic stroke 08/10/2019 ([place] stroke) and subacute stroke 06/16/2019 with R sided hemiparesi s/weakness Seasonal a llergic rhinitis 867616157 J30.2 Benign pro static hyperplasia without outflow obstruction 133978654 N40.[address] recommends stopping Cardura 4 mg daily PSA 1.2 on 08/03/[address] Arrington 05/2022 was started on trial Levitra for BPH/ED and samples Gemtesa 75mg for overactive bladder Body mass index 30+ - obesity 877159533 Z68.31 BMI 33Healthy weight range 100-130 Ht5' 1.5 Spasticity as sequela of stroke 9760138526 93859 R25.2 Neurologis t gave tizanidine 4mg every 6 hours seen just got refill at visitNeuro logist injected botox upper chest/arm/ legPatient seen by neurologis t january f/u 3 months-get ting botox Abnormal l iver function 24509488 K76.89 12/21/2020 AST 149 ALT 296 ALK P. 129 01/19/2021 AST 63 ALT 88 Alk P 19085/15/2 054krdxfs9 /03/2022no rmalLiver u/s shows fatty liver Patient referred to GI has now seen-was to have repeat labs 07/2021 for slight abnormalit ies of AMA ant-his GI [employer] will order labs and if abnormal will need to see another GI Patient had repeat colonoscop y 06/2021 needs another one in 5 years Chronic ki dney disease 060601462 N18.9 [id number] al given on 09/13/2021 seen on 02/08/2022 follow up in 1 year Vitamin D deficiency 347 02425 E55.9 Vitamin D 15.8otc vitamin D3 1000 IU once daily Edema of colin ower extremity 590155094 R60.0 [id number] Ahsan Barillas MD [facility] [address] [place] [address] 09/04/2022 14:05:55 09/05/2022 14:35:40 Multiple complications due to type 2 diabetes mellitus 768337435 E11.8 Fasting blood sugar 129 today HA1C 8.7-worse blood sugars so-so stressed avoidance of sodas/juic es/LSM continue Metformin 1000mg bid continue Januvia 100mg daily continue Jardiance 25mg once daily BS at home 130-250 range-he drinks soda daily 1-2 cans will d/c farxiga 5 mg per [address]i st notes as patient on Jardiance Hyperlipidemia 02600782 E78.5 diet weight loss and wcavwvaj03 /02/2022ch o 112trig 177HDL 72PHV78 06/15/2021 cho 132trig 250HDL 39.4LDL 51 01/01/2020 cho 112trig 177HDL 32LDL 35 06/02/2022 cho 127trig 210HDL 41LDL 58 Avoid all breads, potatoes, cereal, pasta, rice, margarine, refined sugars, milk yogurt, ice cream, juices, soda (including diet), beer, and manmade or manufactur ed desserts. Enjoy steak, fish, chicken (no skin), pork, butter, vegetables , beans, nuts, whole eggs, cheese (low fat or skim), cream in your coffee.con tinue Atorvastat in 40mg dailyconti nue Aspirin 81mg daily Essential hypertension 81546536 I10 BP Goal: Less than 135/85BP Controlled : yes; per the JNC8 guidelines in the absence of renal disease and DMHealthy Weight: 5'1= 100-131 lbsDiscuss ed: Low sodium balanced diet, moderate exercise at least 3-4 times per week for an average of 40 minutesNex t Visit: 3month(s)c ontinue present medschecks b/p at home 104/70-120 -80 range04/01BUN 11creat 0.53eGFR 172Cardiol ogist increased Lisinopril 20mg to 40mg daily and gave 6 [id number] 13creatini ne 0.47eGFR 123 Gastroesop hageal reflux disease 288911394 K21.9 Continue Pantoprazo le Vitiligo 51061074 L80 HandsPatie nt does not wish to try any creams at this time Osteoarthritis 319686667 M19.90 use tylenol arthritis prn Steatotic liver disease 034282952 K76.0 Drank a lot of alcohol during his younger days He stopped alcohol consumptio n 20 years ago Patient has been seen by GI . liver u/s shows steatosis of liver Major depr essive disorder 596068750 F32.9 fluoxetine helping with his symptomshe doesnt want to stop it History of cerebrovascular accident 897989870 Z86.73 Ischemic stroke with R hemiparesi s on 06/16/2019 and on 08/10/2019 Ischemic stroke 08/10/2019 ([place] stroke) and subacute stroke 06/16/2019 with R sided hemiparesi s/weakness Seasonal a llergic rhinitis 596507899 J30.2 Benign pro static hyperplasia without outflow obstruction 813575456 N40.[address] recommends stopping Cardura 4 mg daily PSA 1.2 on 08/03/[address] Arrington 05/2022 was started on trial Levitra for BPH/ED and samples Gemtesa 75mg for overactive bladder Body mass index 30+ - obesity 998852505 Z68.31 BMI 33Healthy weight range 100-130 Ht5' 1.5 Spasticity as sequela of stroke 4070411383 95517 R25.2 Neurologis t gave tizanidine 4mg every 6 hours seen just got refill at visitNeuro logist injected botox upper chest/arm/ legPatient seen by neurolognaomi t f/u 3 months-due now not getting BOTOX now Abnormal l iver function 53948326 K76.89 12/21/2020 AST 149 ALT 296 ALK P. 129 01/19/2021 AST 63 ALT 88 Alk P 46455/15/ 557naiwmm5 /03/2022no rmalLiver u/s shows fatty liver Patient referred to GI has now seen-was to have repeat labs 07/2021 for slight abnormalit ies of AMA ant-his GI [employer] company will order labs and if abnormal will need to see another GI Patient had repeat colonoscop y 06/2021 needs another one in 5 years Chronic ki dney disease 670281935 N18.9 OVS2Pcshls al given on 09/13/2021 seen on 02/08/2022 follow up in 1 year Vitamin D deficiency 347 39507 E55.9 Vitamin D 29.8 betterotc vitamin D3 1000 IU once daily Edema of l ower extremity 289025144 R60.0 resolved Administra tion of influenza vaccine 81736059 Z23 Coronary atherosclerosis 607964492 I25.10 patient has seen Cardiology 06/19/2018 --everythi ng kept the same had follow up in 12/11 2018 He had follow up cardiologi st on 03/10/2020 and plavix not on his med list Since Patient's last stroke was 08/10/2019 will refill Plavix 75mg daily for another 3 months then will d/c Weakness o f right hand [id number] 8095345 R29.898 Ischemic stroke with R hemiparesi s on 06/16/2019 and on 08/10/2019 Ischemic stroke 08/10/2019 ([place] pontine stroke) and subacute stroke 06/16/2019 with R sided hemiparesi s/weakness [id number] Ahsan Barillas MD [facility] [address] [place] [address] 01/11/2023 15:23:11 01/12/2023 09:51:36 Body mass index 30+ - obesity 747639165 Z68.31 BMI 31Healthy weight range 100-130 Ht5' 1.5 Essential hypertension 94922456 I10 BP Goal: Less than 135/85BP Controlled : yes; per the JNC8 guidelines in the absence of renal disease and DMHealthy Weight: 5'1= 100-131 lbsDiscuss ed: Low sodium balanced diet, moderate exercise at least 3-4 times per week for an average of 40 minutesNex t Visit: 3month(s)c ontinue present medschecks b/p at home 104/70-120 -80 range04/01BUN 11creat 0.53eGFR 172Cardiol ogist increased Lisinopril 20mg to 40mg daily and gave 6 zxaqsh89/2BUN 13creatini ne 0.47eGFR 123 Multiple complications due to type 2 diabetes mellitus 023847463 E11.8 NON-Fastin g blood sugar 185 today HA1C 9-worse blood sugars at home elevated stressed avoidance of sodas/juic es/LSM continue Metformin 1000mg bid continue Jardiance 25mg once daily will stop Januvia 100mg daily and add victoza 0.6mg daily for 1 week then increase to victoza 1.2mg daily-ya hensley bs and call in report in 3-4 weeks BS at home 130-250 range-he drinks soda daily 1-2 cansadvise d need for better BS control-he is at risk for another cardiovasc ular event Hyperlipidemia 58821180 E78.5 diet weight loss and ofsiwznb14 /02/2022ch o 112trig 177HDL 42URT60 06/15/2021 cho 132trig 250HDL 39.4LDL 51 01/01/2020 cho 112trig 177HDL 32LDL 35 06/02/2022 cho 127trig 210HDL 41LDL 58 Avoid all breads, potatoes, cereal, pasta, rice, margarine, refined sugars, milk yogurt, ice cream, juices, soda (including diet), beer, and manmade or manufactur ed desserts. Enjoy steak, fish, chicken (no skin), pork, butter, vegetables , beans, nuts, whole eggs, cheese (low fat or skim), cream in your coffee.con tinue Atorvastat in 40mg daily Obesity 091361675 E66.9 BMI 31Healthy weight range 100-130 Ht5' 1.5diet weight loss exercise Gastroesop hageal reflux disease 098948839 K21.9 Continue Pantoprazo leuse pepcid for milder symptomspo tential implicatio ns of daily PPI's Osteoarthritis 762954027 M19.90 use tylenol arthritis prn Steatotic liver disease 933061369 K76.0 Drank a lot of alcohol during his younger days He stopped alcohol consumptio n 20 years ago Patient has been seen by GI . liver u/s shows steatosis of liver Major depr essive disorder 233853378 F32.9 fluoxetine helping with his symptomshe doesnt want to stop it Seasonal a llergic rhinitis 370807693 J30.2 Benign pro static hyperplasia without outflow obstruction 592063335 N40.[address] recommends stopping Cardura 4 mg daily PSA 1.2 on 08/03/[address] Arrington 05/2022 was started on trial Levitra for BPH/ED and samples Gemtesa 75mg for overactive bladder Spasticity as sequela of stroke 0801401348 51653 R25.2 Neurologis t gave tizanidine 4mg every 6 hours seen just got refill at visitNeuro logist injected botox upper chest/arm/ legPatient seen by neurologis t f/u 3 months-due now not getting BOTOX now Weakness o f right hand [id number] 6571410 R29.898 Ischemic stroke with R hemiparesi s on 06/16/2019 and on 08/10/2019 Ischemic stroke 08/10/2019 ([place] pontine stroke) and subacute stroke 06/16/2019 with R sided hemiparesi s/weakness Abnormal l iver function 78491272 K76.89 12/21/2020 AST 149 ALT 296 ALK P. 129 01/19/2021 AST 63 ALT 88 Alk P 13672/15/2 679xfucvl0 /03/2022no rmalLiver u/s shows fatty liver Patient referred to GI has now seen-was to have repeat labs 07/2021 for slight abnormalit ies of AMA ant-his GI [employer] company will order labs and if abnormal will need to see another GI Patient had repeat colonoscop y 06/2021 needs another one in 2025 Chronic ki dney disease 519506679 N18.9 TPV7Qlugep al given on 09/13/2021 seen on 02/08/2022 follow up in 1 yearHas veto bhandari coming up 01/2023 Vitamin D deficiency 347 96582 E55.9 Vitamin D 29.8 betterotc vitamin D3 1000 IU once daily Coronary atherosclerosis 789074858 I25.10 patient has seen Cardiology 06/19/2018 --everythi ng kept the same had follow up in 12/11 2018 He had follow up cardiologi st on 03/10/2020 and plavix not on his med list Since Patient's last stroke was 08/10/2019 will refill Plavix 75mg daily for another 3 months then will d/c Acute urin paul tract infection 212060434 N39.0 Cramp in lower limb 4499 12021 R25.2 [id number] Ahsan Barillas MD [facility] [address] [place] [address] 05/11/2023 14:50:44 05/11/2023 16:13:34 Essential hypertension 84357548 I10 BP Goal: Less than 135/85BP Controlled : yes; per the JNC8 guidelines in the absence of renal disease and DMHealthy Weight: 5'1= 100-131 lbsDiscuss ed: Low sodium balanced diet, moderate exercise at least 3-4 times per week for an average of 40 minutesNex t Visit: 3month(s)c ontinue present medschecks b/p at home 104/70-120 -80 range04/01BUN 11creat 0.53eGFR 172Cardiol ogist increased Lisinopril 20mg to 40mg daily and gave 6 tizlhr582BUN 13creatini ne 0.47eGFR 123 01/11/2023 BUN 10creat 0.66eGFR 110 Hyperlipidemia 56931693 E78.5 diet weight loss and roauuzri66 /02/2022ch o 112trig 177HDL 46TKO48 06/15/2021 cho 132trig 250HDL 39.4LDL 51 01/01/2020 cho 112trig 177HDL 32LDL 35 06/02/2022 cho 127trig 210HDL 41LDL 58 Avoid all breads, potatoes, cereal, pasta, rice, margarine, refined sugars, milk yogurt, ice cream, juices, soda (including diet), beer, and manmade or manufactur ed desserts. Enjoy steak, fish, chicken (no skin), pork, butter, vegetables , beans, nuts, whole eggs, cheese (low fat or skim), cream in your coffee.con tinue Atorvastat in 40mg daily Multiple complications due to type 2 diabetes mellitus 928982882 E11.8 NON-Fastin g blood sugar 185 today HA1C 9-worse blood sugars at home elevated stressed avoidance of sodas/juic es/LSM continue Metformin 1000mg bid continue Jardiance 25mg once daily Has not been using/taki ng Jardiance or Victoza [facility] did not give to him BS at home 130-250 range-he drinks soda daily 1-2 cansadvise d need for better BS control-he is at risk for another cardiovasc ular event Body mass index 30+ - obesity 727367849 Z68.31 BMI 31Healthy weight range 100-130 Ht5' 1.5 Obesity 771901076 E66.9 BMI 31Healthy weight range 100-130 Ht5' 1.5diet weight loss exercise Gastroesop hageal reflux disease 522560553 K21.9 Continue Pantoprazo leuse pepcid for milder symptomspo tential implicatio ns of daily PPI's Osteoarthritis 339319165 M19.90 use tylenol arthritis prn Steatotic liver disease 881038739 K76.0 Drank a lot of alcohol during his younger days He stopped alcohol consumptio n 20 years ago Patient has been seen by GI 4. liver u/s shows steatosis of liver Major depr essive disorder 977433672 F32.9 fluoxetine helping with his symptomshe doesnt want to stop it Seasonal a llergic rhinitis 382518856 J30.2 Benign pro static hyperplasia without outflow obstruction 268751455 N40.[address] recommends stopping Cardura 4 mg daily PSA 1.2 on 08/03/[address] Arrington 05/2022 was started on trial Levitra for BPH/ED and samples Gemtesa 75mg for overactive bladderPSA 1.3 01/11/2023 Spasticity as sequela of stroke 2476439019 85869 R25.2 Neurologis t gave tizanidine 4mg every 6 hours seen just got refill at visitNeuro logist injected botox upper chest/arm/ legPatient seen by neurolognaomi t f/u 3 months-due now not getting BOTOX now Weakness o f right hand 3464226113 5520365 R29.898 Ischemic stroke with R hemiparesi s on 06/16/2019 and on 08/10/2019 Ischemic stroke 08/10/2019 (New pontine stroke) and subacute stroke 06/16/2019 with R sided hemiparesi s/weakness Chronic ki dney disease 701264280 N18.9 EQR0Gppkpb al given on 09/13/2021 seen on 02/08/2022 follow up in 1 yearHad appointmen t coming up 01/2023-no records in system Vitamin D deficiency 347 99527 E55.9 Vitamin D 29.8 betterotc vitamin D3 1000 IU once daily Coronary atherosclerosis 930338556 I25.10 patient has seen Cardiology 06/19/2018 --everythi ng kept the same had follow up in 12/11 2018 He had follow up cardiologi st on 03/10/2020 and plavix not on his med list Since Patient's last stroke was 08/10/2019 will refill Plavix 75mg daily for another 3 months then will d/c Requires c ourse of hepatitis B vaccination 853306616 Z28.39 Administra tion of pneumococcal vaccine 28795925 Z23 [id number] Ahsan Barillas MD [facility] [address] [place] [address] 06/18/2023 14:11:35 06/29/2023 08:44:30 Hyperlipidemia 78423602 E78.5 diet weight loss and llsyokbd01 /02/2022ch o 112trig 177HDL 61WFH67 06/15/2021 cho 132trig 250HDL 39.4LDL 51 01/01/2020 cho 112trig 177HDL 32LDL 35 06/02/2022 cho 127trig 210HDL 41LDL 58 Avoid all breads, potatoes, cereal, pasta, rice, margarine, refined sugars, milk yogurt, ice cream, juices, soda (including diet), beer, and manmade or manufactur ed desserts. Enjoy steak, fish, chicken (no skin), pork, butter, vegetables , beans, nuts, whole eggs, cheese (low fat or skim), cream in your coffee.con tinue Atorvastat in 40mg daily Vitamin D deficiency 347 58667 E55.9 Vitamin D 29.8 [facility] vitamin D3 1000 IU once daily [id number] Ahsan Barillas MD [facility] [address] [place] [address] 11/01/2023 15:57:35 11/05/2023 10:13:04 Body mass index 30+ - obesity 118012437 Z68.31 BMI 30.3Health y weight range 100-130 Ht5' 1.5 Multiple complications due to type 2 diabetes mellitus 369098801 E11.8 NON-Fastin g blood sugar 185 today HA1C 8.3 blood sugars at home elevated stressed avoidance of sodas/juic es/LSM continue Metformin 1000mg bid continue Jardiance 25mg once daily Has not been using/taki ng Jardiance or Victoza [facility] did not give to him BS at home 130-250 range-he drinks soda daily 1-2 cansadvise d need for better BS control-he is at risk for another cardiovasc ular event Hyperlipidemia 53371356 E78.5 diet weight loss and dwmjffte72 /02/2022ch o 112trig 177HDL 17IKS45 06/15/2021 cho 132trig 250HDL 39.4LDL 51 01/01/2020 cho 112trig 177HDL 32LDL 35 06/02/2022 cho 127trig 210HDL 41LDL 58 06/18/2023 cho 144trig 233HDL 41LDL 92Avoid all breads, potatoes, cereal, pasta, rice, margarine, refined sugars, milk yogurt, ice cream, juices, soda (including diet), beer, and manmade or manufactur ed desserts. Enjoy steak, fish, chicken (no skin), pork, butter, vegetables , beans, nuts, whole eggs, cheese (low fat or skim), cream in your coffee.con tinue Atorvastat in 40mg daily Essential hypertension 50725698 I10 BP Goal: Less than 135/85BP Controlled : yes; per the JNC8 guidelines in the absence of renal disease and DMHealthy Weight: 5'1= 100-131 lbsDiscuss ed: Low sodium balanced diet, moderate exercise at least 3-4 times per week for an average of 40 minutesNex t Visit: 3month(s)c ontinue present medschecks b/p at home 104/70-120 -80 range04/01BUN 11creat 0.53eGFR 172Cardiol ogist increased Lisinopril 20mg to 40mg daily and gave 6 rqdnea59UN 13creatini ne 0.47eGFR 123 01/11/2023 BUN 10creat 0.66eGFR 110 Obesity 066912052 E66.9 BMI 30.3Health y weight range 100-130 Ht5' 1.5diet weight loss exercise Gastroesop hageal reflux disease 397271298 K21.9 Continue Pantoprazo leuse pepcid for milder symptomspo tential implicatio ns of daily PPI's Osteoarthritis 265509415 M19.90 use tylenol arthritis prn Steatotic liver disease 201734184 K76.0 Drank a lot of alcohol during his younger days He stopped alcohol consumptio n 20 years ago Patient has been seen by GI . liver u/s shows steatosis of liver Major depr essive disorder 494831917 F32.9 fluoxetine helping with his symptomshe doesnt want to stop it Seasonal a llergic rhinitis 766656895 J30.2 Benign pro static hyperplasia without outflow obstruction 942885733 N40.[address] recommends stopping Cardura 4 mg daily PSA 1.2 on 08/03/[address] Arrington 05/2022 was started on trial Levitra for BPH/ED and samples Gemtesa 75mg for overactive bladderPSA 1.3 01/11/2023 Spasticity as sequela of stroke 6331674629 67547 R25.2 Neurologis t gave tizanidine 4mg every 6 hours seen just got refill at visitNeuro logist injected botox upper chest/arm/ legPatient seen by neurologis t not getting BOTOX now Weakness o f right hand 4181902301 2816509 R29.898 Ischemic stroke with R hemiparesi s on 06/16/2019 and on 08/10/2019 Ischemic stroke 08/10/2019 ([place] pontine stroke) and subacute stroke 06/16/2019 with R sided hemiparesi s/weakness Patient referred to OT at last visit 05/2023 Chronic ki dney disease 769285843 N18.9 OIH4Anfsje al given on 09/13/2021 seen on 02/08/2022 follow up in 1 yearHad appointmen t coming up 01/2023-no records in system Vitamin D deficiency 347 39082 E55.9 Vitamin D 22.4otc vitamin D3 1000 IU once daily Coronary atherosclerosis 951808624 I25.10 patient has seen Cardiology 06/19/2018 --everythi ng kept the same had follow up in 12/11 2018 He had follow up cardiologi st on 03/10/2020 and plavix not on his med list Since Patient's last stroke was 08/10/2019 will refill Plavix 75mg daily for another 3 months then will d/c Requires c ourse of hepatitis B vaccination 936510121 Z28.39 Depression screening 171 653604 Z13.31 PHQ 2-9 neg Mental hea lth screening 498403969 Z13.39 TRUNG-7 neg Incontinence of feces 72 907349 R15.9 Overactive urinary bladder 329742140 N32.81 Influenza vaccination declined 290128400 Z28.21 [id number] Ahsan Barillas MD [facility] [address] [address] 4 11/05/2023 15:46:53 11/07/2023 16:20:02 Incontinence of feces 68953397 R15.9 [id number] Ahsan Barillas MD [facility] [address] 4 11/06/2023 17:15:36 11/09/2023 16:17:16 Incontinence of feces 62667588 R15.9 [id number] Ahsan Barillas MD [facility] [address] [place] [address] 4 03/03/2024 16:00:02 03/04/2024 15:23:35 Essential hypertension 09275460 I10 BP Goal: Less than 135/85BP Controlled : yes; per the JNC8 guidelines in the absence of renal disease and DMHealthy Weight: 5'1= 100-131 lbsDiscuss ed: Low sodium balanced diet, moderate exercise at least 3-4 times per week for an average of 40 minutesNex t Visit: 3month(s)c ontinue present medschecks b/p at home 104/70-120 -80 range04/01BUN 11creat 0.53eGFR 172Cardiol ogist increased Lisinopril 20mg to 40mg daily and gave 6 qvcujl06UN 13creatini ne 0.47eGFR 123 01/11/2023 BUN 10creat 0.66eGFR 110 Hyperlipidemia 29974347 E78.5 diet weight loss and kxmiyzbd70h o 112trig 177HDL 09XND74 06/15/2021 cho 132trig 250HDL 39.4LDL 51 01/01/2020 cho 112trig 177HDL 32LDL 35 06/02/2022 cho 127trig 210HDL 41LDL 58 06/18/2023 cho 144trig 233HDL 41LDL 92Avoid all breads, potatoes, cereal, pasta, rice, margarine, refined sugars, milk yogurt, ice cream, juices, soda (including diet), beer, and manmade or manufactur ed desserts. Enjoy steak, fish, chicken (no skin), pork, butter, vegetables , beans, nuts, whole eggs, cheese (low fat or skim), cream in your coffee.con tinue Atorvastat in 40mg daily Multiple complications due to type 2 diabetes mellitus 463166303 E11.8 NON-Fastin g blood sugar 185 today HA1C 8.3 blood sugars at home elevated stressed avoidance of sodas/juic es/LSM continue Metformin 1000mg bid continue Jardiance 25mg once daily Has not been using VictozaHas started on Ozempic 0.25mg once weekly increase to 0.5mg once weeklyBS at home 130-250 range-he drinks soda daily 1-2 cansadvise d need for better BS control-he is at risk for another cardiovasc ular event Steatotic liver disease K76.0 Drank a lot of alcohol during his younger days He stopped alcohol consumptio n 20 years ago Patient has been seen by GI . liver u/s shows steatosis of liver Gastroesop hageal reflux disease 328705001 K21.9 Continue Pantoprazo leuse pepcid for milder symptomspo tential implicatio ns of daily PPI's Osteoarthritis 012263849 M19.90 use tylenol arthritis prn Body mass index 30+ - obesity 165332798 Z68.31 BMI 30.2Health y weight range 100-130 Ht5' 1.5 Obesity 333402688 E66.9 BMI 30.2Health y weight range 100-130 Ht5' 1.5diet weight loss exercise Major depr essive disorder 568491317 F32.9 fluoxetine helping with his symptomshe doesnt want to stop it Seasonal a llergic rhinitis 269007335 J30.2 Benign pro static hyperplasia without outflow obstruction 341820777 N40.[address] recommends stopping Cardura 4 mg daily PSA 1.2 on 08/03/[address] Arrington 05/2022 was started on trial Levitra for BPH/ED and samples Gemtesa 75mg for overactive bladderPSA 1.3 01/11/2023 Spasticity as sequela of stroke 0213304729 39639 R25.2 Neurologis t gave tizanidine 4mg every 6 hours seen just got refill at visitNeuro logist injected botox upper chest/arm/ legPatient seen by neurologis t not getting BOTOX now Weakness o f right hand 1863826226 9924077 R29.898 Ischemic stroke with R hemiparesi s on 06/16/2019 and on 08/10/2019 Ischemic stroke 08/10/2019 (New pontine stroke) and subacute stroke 06/16/2019 with R sided hemiparesi s/weakness Patient referred to OT at last visit 05/2023 Chronic ki dney disease 274401776 N18.9 [id number] al given today againseen on 02/08/2022 follow up in 1 yearHad appointmen t coming up 01/2023-no records in system Vitamin D deficiency 347 53148 E55.9 Vitamin D 22.4otc vitamin D3 1000 IU once daily Coronary atherosclerosis 058451881 I25.10 patient has seen Cardiology 06/19/2018 --everythi ng kept the same had follow up in 12/11 2018 He had follow up cardiologi st on 03/10/2020 and plavix not on his med list Since Patient's last stroke was 08/10/2019 will refill Plavix 75mg daily for another 3 months then will d/c Requires c ourse of hepatitis B vaccination 818885932 Z28.39 Has Dm208/08/02 023 #102 24 #206 24 #3 Depression screening 171 611340 Z13.31 PHQ 2-9 neg Incontinence of feces 72 920274 R15.9 11/06/2023 Ova and parasite negstool culture negative Overactive urinary bladder 941551307 N32.81 Adult heal th examination 102479943 Z00.01 Impacted c erumen of bilateral ears 6418960783 155949 H61.23 [id number] Ahsan Barillas MD [facility] [address] [place] [address] 03/10/2024 15:37:30 03/11/2024 10:28:30 Chronic kidney disease 369776141 N18.9 ELW0Maxvqm al given today againseen on 02/08/2022 follow up in 1 yearHad appointmen t coming up 01/2023-no records in system Vitamin D deficiency 347 07366 E55.9 Vitamin D 22.4otc vitamin D3 1000 IU once daily [id number] Ahsan Barillas MD [facility] [address], [place] [address] 04/01/2024 16:44:46 04/02/2024 16:14:28 Follow-up visit 045690515 Z09 58 y/o HM presents for left hand suture removal. 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 He had [address] but one came out. He denies any fever chills or drainage from wound. He completed course of antibiotic s given to him at [facility] [place] [facility]. Laceration of left hand [id number] 3279259 S61.412D Laceration of palm of hand 557646633 S61.412D Body mass index 30+ - obesity 390061379 Z68.31 BMI 30.1Health y weight range 100-130 Ht5' 1.5 [id number] Ahsan Barillas MD [facility] [address], [place] [address] 06/09/2024 15:30:46 06/10/2024 16:21:20 Multiple complications due to type 2 diabetes mellitus 448954175 E11.8 NON-Fastin g blood sugar 185 today HA1C 8.0 blood sugars at home elevated stressed avoidance of sodas/juic es/LSM continue Metformin 1000mg bid continue Jardiance 25mg once daily Has not been using VictozaCon tinue Ozempic 0.5mg once weeklyBS at home 120-150 range-he drinks soda daily 1-2 cansadvise d need for better BS control-he is at risk for another cardiovasc ular event Vitamin D deficiency 347 34744 E55.9 Vitamin D 20.5otc vitamin D3 1000 IU once daily Essential hypertension [id number] I10 BP Goal: Less than 135/85BP Controlled : yes; per the JNC8 guidelines in the absence of renal disease and DMHealthy Weight: 5'1= 100-131 lbsDiscuss ed: Low sodium balanced diet, moderate exercise at least 3-4 times per week for an average of 40 minutesNex t Visit: 3month(s)c husam present medschecks b/p at home 104/70-120 -80 range04/01BUN 11creat 0.53eGFR 172 06/02/2022 BUN 13creatini ne 0.47eGFR 123 01/11/2023 BUN 10creat 0.66eGFR 110 03/10/2024 BUN 9creat 0.70eGFR 107 Hyperlipidemia 99679202 E78.5 diet weight loss and umbwxtig76 /02/2022ch o 112trig 177HDL 69LFT39 06/15/2021 cho 132trig 250HDL 39.4LDL 51 01/01/2020 cho 112trig 177HDL 32LDL 35 06/02/2022 cho 127trig 210HDL 41LDL 58 06/18/2023 cho 144trig 233HDL 41LDL 92Avoid all breads, potatoes, cereal, pasta, rice, margarine, refined sugars, milk yogurt, ice cream, juices, soda (including diet), beer, and manmade or manufactur ed desserts. Enjoy steak, fish, chicken (no skin), pork, butter, vegetables , beans, nuts, whole eggs, cheese (low fat or skim), cream in your coffee.con tinue Atorvastat in 40mg daily Steatotic liver disease 593986201 K76.0 Doesnt drink alcohol at all nowDrank a lot of alcohol during his younger days He stopped alcohol consumptio n 20 years ago Patient has been seen by GI 4. liver u/s shows steatosis of liver Gastroesop hageal reflux disease 236985609 K21.9 Continue Pantoprazo le prnuse pepcid for milder symptomspo tential implicatio ns of daily PPI's Osteoarthritis 016597734 M19.90 use tylenol arthritis prn Body mass index 30+ - obesity 055075361 Z68.31 BMI 29.8Health y weight range 100-130 Ht5' 1.5 Obesity 915782747 E66.9 BMI 29.8Health y weight range 100-130 Ht5' 1.5diet weight loss exercise Major depr essive disorder 760192067 F32.9 fluoxetine helping with his symptomshe doesnt want to stop it Seasonal a llergic rhinitis 484983183 J30.2 Benign pro static hyperplasia without outflow obstruction 165109119 N40.[address] recommends stopping Cardura 4 mg daily PSA 1.2 on 08/03/[address] Arrington 05/2022 was started on trial Levitra for BPH/ED and samples Gemtesa 75mg for overactive bladderPSA 1.3 01/11/2023 Spasticity as sequela of stroke 8767414334 41926 R25.2 Neurologis t gave tizanidine 4mg every 6 hours seen just got refill at visitNeuro logist injected botox upper chest/arm/ legPatient seen by neurologis t not getting BOTOX now Weakness o f right hand [id number] 2224618 R29.898 Ischemic stroke with R hemiparesi s on 06/16/2019 and on 08/10/2019 Ischemic stroke 08/10/2019 (New pontine stroke) and subacute stroke 06/16/2019 with R sided hemiparesi s/weakness Patient referred to OT Chronic ki dney disease 384989871 N18.9 FKC2Mzjfcv al given today againseen on 02/08/2022 follow up in 1 yearHad appointmen t coming up 01/2023-no records in systemgive n a new referral at last visitstill has not seen-pt to sandhya for appointmen t Overactive urinary bladder 852189284 N32.81 Incontinence of feces 72 234448 R15.9 11/06/2023 Ova and parasite negstool culture negative Coronary atherosclerosis 900172755 I25.10 patient has seen Cardiology 08/14/2023 -- Administra tion of influenza vaccine 09414630 Z23 [id number] Ahsan Barillas MD [facility] [address] [place] [address] 06/11/2024 10:41:02 06/18/2024 09:39:48 Hyperlipidemia 04276291 E78.5 diet weight loss and rkenldmm76 /02/2022ch o 112trig 177HDL 94BIA25 06/15/2021 cho 132trig 250HDL 39.4LDL 51 01/01/2020 cho 112trig 177HDL 32LDL 35 06/02/2022 cho 127trig 210HDL 41LDL 58 06/18/2023 cho 144trig 233HDL 41LDL 92Avoid all breads, potatoes, cereal, pasta, rice, margarine, refined sugars, milk yogurt, ice cream, juices, soda (including diet), beer, and manmade or manufactur ed desserts. Enjoy steak, fish, chicken (no skin), pork, butter, vegetables , beans, nuts, whole eggs, cheese (low fat or skim), cream in your coffee.con tinue Atorvastat in 40mg daily [id number] Ahsan Barillas MD [facility] [address], [place] [address] 09/08/2024 15:37:07 09/09/2024 14:10:39 Multiple complications due to type 2 diabetes mellitus 309001098 E11.8 NON-Fastin g blood sugar 245 today HA1C 7.8 blood sugars at home elevated stressed avoidance of sodas/juic es/LSM continue Metformin 1000mg bid continue Jardiance 25mg once daily Has not been using VictozaInc rease Ozempic 0.5mg once weekly to 1mg weeklyBS at home 120-150 range-he drinks soda daily 1-2 cansadvise d need for better BS control-he is at risk for another cardiovasc ular event Essential hypertension 81201875 I10 BP Goal: Less than 135/85BP Controlled : yes; per the JNC8 guidelines in the absence of renal disease and DMHealthy Weight: 5'1= 100-131 lbsDiscuss ed: Low sodium balanced diet, moderate exercise at least 3-4 times per week for an average of 40 minutesNex t Visit: 3month(s)c ontinue present medschecks b/p at home 104/70-120 -80 range04/01BUN 11creat 0.53eGFR 172 06/02/2022 BUN 13creatini ne 0.47eGFR 123 01/11/2023 BUN 10creat 0.66eGFR 110 03/10/2024 BUN 9creat 0.70eGFR 107 Hyperlipidemia 16385417 E78.5 diet weight loss and mhnbxaoc06 /02/2022ch o 112trig 177HDL 10OKF91 06/15/2021 cho 132trig 250HDL 39.4LDL 51 01/01/2020 cho 112trig 177HDL 32LDL 35 06/02/2022 cho 127trig 210HDL 41LDL 58 06/18/2023 cho 144trig 233HDL 41LDL 92 06/11/2024 cho 116trig 254HDL 34LDL 43Avoid all breads, potatoes, cereal, pasta, rice, margarine, refined sugars, milk yogurt, ice cream, juices, soda (including diet), beer, and manmade or manufactur ed desserts. Enjoy steak, fish, chicken (no skin), pork, butter, vegetables , beans, nuts, whole eggs, cheese (low fat or skim), cream in your coffee.con tinue Atorvastat in 40mg daily Body mass index 30+ - obesity 208515851 Z68.31 BMI 29.6Health y weight range 100-130 Ht5' 1.5 Major depr essive disorder 209158251 F32.9 fluoxetine helping with his symptomshe doesnt want to stop it Vitamin D deficiency 347 92752 E55.9 Vitamin D 20.5otc vitamin D3 1000 IU once daily Steatotic liver disease 234456170 K76.0 Doesnt drink alcohol at all nowDrank a lot of alcohol during his younger days He stopped alcohol consumptio n 20 years ago Patient has been seen by GI 01.19.2021 liver u/s shows steatosis of liver Gastroesop hageal reflux disease 821810921 K21.9 Continue Pantoprazo le prnuse pepcid for milder symptomspo tential implicatio ns of daily PPI's Chronic ki dney disease 643157286 N18.9 CKDReferra l given today againseen on 02/08/2022 follow up in 1 yearHad veto bhandari coming up 01/2023-not seengiven a new referral at last visitstill has not seen-pt to call for appointgalo t-RN spoke with Dr Khan's office will be calling pt for appointgalo t Osteoarthritis 559726538 M19.90 use tylenol arthritis prn Obesity 616505495 E66.9 BMI 29.6Health y weight range 100-130 Ht5' 1.5diet weight loss exercise Seasonal a llergic rhinitis 052970648 J30.2 Benign pro static hyperplasia without outflow obstruction 331572281 N40.[address] recommends stopping Cardura 4 mg daily PSA 1.2 on 08/03/[address] Arrington 05/2022 was started on trial Levitra for BPH/ED and samples Gemtesa 75mg for overactive bladderPSA 1.3 01/11/2023 Spasticity as sequela of stroke 3201141629 77462 R25.2 Neurologis t gave tizanidine 4mg every 6 hours seen just got refill at visitNeuro logist injected botox upper chest/arm/ legPatient seen by neurologis t not getting BOTOX now Weakness o f right hand [id number] 4046002 R29.898 Ischemic stroke with R hemiparesi s on 06/16/2019 and on 08/10/2019 Ischemic stroke 08/10/2019 (New pontine stroke) and subacute stroke 06/16/2019 with R sided hemiparesi s/weakness Patient referred to OT Overactive urinary bladder 996681522 N32.81 Coronary atherosclerosis 517642428 I25.10 patient has seen Cardiology 08/14/2023 -- Peripheral neuropathy due to type 2 diabetes mellitus 7955809074 107 E11.42 reports L foot swelling and pain (not swollen today)Has been taking motrinpati ent advised cant take motrin secondary to CKDwork at blood sugar controls[facility] [id number] Ahsan Barillas MD [facility] [address] [place] [address] 04/20/2025 16:10:29 04/24/2025 08:33:48 Essential hypertension 63079904 I10 BP Goal: Less than 135/85BP Controlled : yes; per the JNC8 guidelines in the absence of renal disease and DMHealthy Weight: 5'1= 100-131 lbsDiscuss ed: Low sodium balanced diet, moderate exercise at least 3-4 times per week for an average of 40 minutesNex t Visit: 3month(s)c ontinue present medschecks b/p at home 104/70-120 -80 range04/01BUN 11creat 0.53eGFR 172 06/02/2022 BUN 13creatini ne 0.47eGFR 123 01/11/2023 BUN 10creat 0.66eGFR 110 03/10/2024 BUN 9creat 0.70eGFR 107 09/08/2024 BUN 17creat 0.65eGFR 109 Benign pro static hyperplasia without outflow obstruction 161580346 N40.[address] recommends stopping Cardura 4 mg daily PSA 1.2 on 08/03/[address] Arrington 05/2022 was started on trial Levitra for BPH/ED and samples Gemtesa 75mg for overactive bladderPSA 1.3 01/11/2023 Multiple complications due to type 2 diabetes mellitus 357774758 E11.8 NON-Fastin g blood sugar 245 today HA1C 7.8 blood sugars at home elevated stressed avoidance of sodas/juic es/LSM continue Metformin 1000mg bid continue Jardiance 25mg once daily Has not been using VictozaInc rease Ozempic 0.5mg once weekly to 1mg weeklyBS at home 120-150 range-he drinks soda daily 1-2 cansadvise d need for better BS control-he is at risk for another cardiovasc ular event Body mass index 30+ - obesity 924355647 Z68.31 BMI 28.3Health y weight range 100-130 Ht5' 1.5 Major depr essive disorder 689197374 F32.9 fluoxetine helping with his symptomshe doesnt want to stop it Vitamin D deficiency 347 93686 E55.9 Vitamin D 20.5otc vitamin D3 1000 IU once daily Steatotic liver disease 527381499 K76.0 Doesnt drink alcohol at all nowDrank a lot of alcohol during his younger days He stopped alcohol consumptio n 20 years ago Patient has been seen by GI 4..2020 liver u/s shows steatosis of liver Gastroesop hageal reflux disease 908971105 K21.9 Continue Pantoprazo le prnuse pepcid for milder symptomspo tential implicatio ns of daily PPI's Chronic ki dney disease 580447625 N18.9 CKDReferra l given today againseen on 02/08/2022 follow up in 1 yearHad appointgalo t coming up 01/2023-not seengiven a new referral at last visit-has not seenstill has not seen-pt to call for appointmen t-RN spoke with Dr Khan's office will be calling pt for appointmen t Osteoarthritis 863836060 M19.90 use tylenol arthritis prn Obesity 489113483 E66.9 BMI 28.3Health y weight range 100-130 Ht5' 1.5diet weight loss exercise Seasonal a llergic rhinitis 084691508 J30.2 Spasticity as sequela of stroke 2091069157 36550 R25.2 Neurologis t gave tizanidine 4mg every 6 hours seen just got refill at visitNeuro logist injected botox upper chest/arm/ legPatient seen by neurologis t not getting BOTOX nowPatient doesnt tolerate TIZANIDINE Weakness o f right hand 2935126056 8676364 R29.898 Ischemic stroke with R hemiparesi s on 06/16/2019 and on 08/10/2019 Ischemic stroke 08/10/2019 (New pontine stroke) and subacute stroke 06/16/2019 with R sided hemiparesi s/weakness Patient referred to OT Overactive urinary bladder 220146215 N32.81 Coronary atherosclerosis 403837548 I25.10 patient has seen Cardiology 08/14/2023 -- Peripheral neuropathy due to type 2 diabetes mellitus 9468434111 107 E11.42 reports L foot swelling and pain (not swollen today)Has been taking motrinpati ent advised cant take motrin secondary to CKDwork at blood sugar control Mixed hyperlipidemia 267 522727 E78.2 74500 diet weight loss and avsfoyrt00 /02/2022ch o 112trig 177HDL 75JIW81 06/15/2021 cho 132trig 250HDL 39.4LDL 51 01/01/2020 cho 112trig 177HDL 32LDL 35 06/02/2022 cho 127trig 210HDL 41LDL 58 06/18/2023 cho 144trig 233HDL 41LDL 92 06/11/2024 cho 116trig 254HDL 34LDL 43Avoid all breads, potatoes, cereal, pasta, rice, margarine, refined sugars, milk yogurt, ice cream, juices, soda (including diet), beer, and manmade or manufactur ed desserts. Enjoy steak, fish, chicken (no skin), pork, butter, vegetables , beans, nuts, whole eggs, cheese (low fat or skim), cream in your coffee.con tinue Atorvastat in 40mg daily Erectile dysfunction 860 983801 N52.9 550963922 Last seen in 2021Has tried viagra, levittra ,cialisdid not helpNeeds re-evaluat ionSeen by Dr Arrington in the past-needs to see Dr Womack [id number] Ahsan Barillas MD [facility] [address] [address] 04/23/2025 09:53:38 04/24/2025 09:19:40 Mixed hyperlipidemia 145409155 E78.2 03752 diet weight loss and ztuzfgbq95h o 112trig 177HDL 09YIX64 06/15/2021 cho 132trig 250HDL 39.4LDL 51 01/01/2020 cho 112trig 177HDL 32LDL 35 06/02/2022 cho 127trig 210HDL 41LDL 58 06/18/2023 cho 144trig 233HDL 41LDL 92 06/11/2024 cho 116trig 254HDL 34LDL 43Avoid all breads, potatoes, cereal, pasta, rice, margarine, refined sugars, milk yogurt, ice cream, juices, soda (including diet), beer, and manmade or manufactur ed desserts. Enjoy steak, fish, chicken (no skin), pork, butter, vegetables , beans, nuts, whole eggs, cheese (low fat or skim), cream in your coffee.con tinue Atorvastat in 40mg daily Benign pro static hyperplasia without outflow obstruction 390157652 N40.[address] recommends stopping Cardura 4 mg daily PSA 1.2 on 08/03/[address] Arrington 05/2022 was started on trial Levitra for BPH/ED and samples Gemtesa 75mg for overactive bladderPSA 1.3 01/11/2023 Chronic ki dney disease 372119175 N18.9 40673084 CKDReferra l given today againseen on 02/08/2022 follow up in 1 yearHad veto t coming up 01/2023-not seengiven a new referral at last visit-has not seenstill has not seen-pt to call for appointmen t-RN spoke with Dr Khan's office will be calling pt for appointmen t [id number] Ahsan Barillas MD [facility] [address] [phone] 05/19/2025 16:13:41 05/21/2025 10:08:20 Body mass index 30+ - obesity 593877063 Z68.31 BMI 29Healthy weight range 100-130 Ht5' 1.5 Right hemiparesis 733152 009 G81.90 History of CVA with residual deficits-[facility] as sequela of strokeputt ing all his weight on His L side hence gets tired from his R side not having full strengthus es a cane hand gets tiredhas fallen several times Weakness o f right hand 7265402442 5196460 R29.898 Ischemic stroke with R hemiparesi s on 06/16/2019 and on 08/10/2019 Ischemic stroke 08/10/2019 (New pontine stroke) and subacute stroke 06/16/2019 with R sided hemiparesi s/weakness Patient referred to OT [id number] Tegan Cohen MD [facility] [address] [address] 07/22/2025 15:46:03 07/24/2025 13:18:14 Multiple complications due to type 2 diabetes mellitus 193769811 E11.8 NON-Fastin g blood sugar 180 today HA1C 6.8 blood sugars at home elevated stressed avoidance of sodas/juic es/LSM continue Metformin 1000mg bid continue Jardiance 25mg once daily Increase Ozempic 0.5mg once weekly to 1mg weekly BS at home 120-150 range-he drinks soda daily 1-2 cans advised need for better BS control-he is at risk for another cardiovasc ular event Essential hypertension 70194242 I10 BP Goal: Less than 135/85BP Controlled : yes; per the JNC8 guidelines in the absence of renal disease and DMHealthy Weight: 5'1= 100-131 lbsDiscuss ed: Low sodium balanced diet, moderate exercise at least 3-4 times per week for an average of 40 minutesNex t Visit: 3month(s)carlos weiner present medschecks b/p at home 104/70-120 -80 range07/02 /21BUN 11creat 0.53eGFR 80844/02/2 022BUN 13creatini ne 0.47eGFR 33117/13/2 023BUN 10creat 0.66eGFR 87458/10/2 024BUN 9creat 0.70eGFR 18694/09/2 024BUN 17creat 0.65eGFR 109 Major depr essive disorder 924236285 F32.9 Be physically active. Doing 30 minutes of exercise every day is good for your body and mind. Start slowly if you find it difficult to get started. If you already exercise, continue doing so. Plan something nice for yourself every day. Include activities you have enjoyed in the past. Get enough sleep. Eat a balanced diet. If you are not hungry, eat small snacks instead of large meals. Do not drink alcohol, use illegal drugs, or take medication s that your doctor has not prescribed . They may interfere with your treatment. Spend time with family and friends. It may be helpful to talk openly about your depression with people you trust. Take your medication s exactly as prescribed . Don't make important life decisions while you are depressed. Depression can change the way you think. You will be able to make better decisions when you feel better. Think positively . Challenge negative thoughts with statements like I am hopeful ; Things will get better; and I can ask for the help I need. Write these statements down and read them often, even if you don't believe them yet. Be patient with yourself. It took time for your depression to develop and it will take time for your symptoms to improve. Don't assume too much or be too hard on yourself. Learn everything you can about depression from written and online materials. Check out behavioral health classes to learn more about how to deal with depression . Keep the numbers for these national suicide hotlines: 0-712-808- TALK (0-298-816 -3986) and 3-757-SUIC NENITA (3-910-757 -6270). If you or someone you know talks about suicide or feels hopeless, seek help immediatel y. c/w fluoxetine 20mg daily Right hemiparesis 865752 009 G81.90 History of CVA with residual deficits-L pontine infar[facility] 2018[facility] as sequela of strokeputt ing all his weight on His L side hence gets tired from his R side not having full strengthus es a cane hand gets tiredhas fallen several times Weakness o f right hand [id number] 8987952 R29.898 Ischemic stroke with R hemiparesi s on 06/16/2019 and on 08/10/2019 Ischemic stroke 08/10/2019 (New pontine stroke) and subacute stroke 06/16/2019 with R sided hemiparesi s/weakness Patient referred to OT Body mass index 30+ - obesity 510133349 Z68.31 BMI 29Healthy weight range 100-130 Ht5' 1.5 Mixed hyperlipidemia 267 723364 E78.2 05461 diet weight loss and khhgedlk19 /02/2022ch o 112trig 177HDL 83QOE92 06/15/2021 cho 132trig 250HDL 39.4LDL 51 01/01/2020 cho 112trig 177HDL 32LDL 35 06/02/2022 cho 127trig 210HDL 41LDL 58 06/18/2023 cho 144trig 233HDL 41LDL 92 06/11/2024 cho 116trig 254HDL 34LDL 43Avoid all breads, potatoes, cereal, pasta, rice, margarine, refined sugars, milk yogurt, ice cream, juices, soda (including diet), beer, and manmade or manufactur ed desserts. Enjoy steak, fish, chicken (no skin), pork, butter, vegetables , beans, nuts, whole eggs, cheese (low fat or skim), cream in your coffee.con tinue Atorvastat in 40mg daily Benign pro static hyperplasia without outflow obstruction 373672955 N40.[address] recommends stopping Cardura 4 mg daily PSA 1.2 on 08/03/[address] Arrington 05/2022 was started on trial Levitra for BPH/ED and samples Gemtesa 75mg for overactive bladderPSA 1.3 01/11/2023 Vitamin D deficiency 347 36314 E55.9 Vitamin D 20.5otc vitamin D3 1000 IU once daily Steatotic liver disease 002570123 K76.0 Doesnt drink alcohol at all nowDrank a lot of alcohol during his younger days He stopped alcohol consumptio n 20 years ago Patient has been seen by GI . liver u/s shows steatosis of liver Gastroesop hageal reflux disease 973154492 K21.9 Continue Pantoprazo le prnuse pepcid for milder symptomspo tential implicatio ns of daily PPI's Chronic ki dney disease 597940173 N18.9 CKDReferra l given today againseen on 02/08/2022 follow up in 1 yearHad veto bhandari coming up 01/2023-not seengiven a new referral at last visit-has not seenstill has not seen-pt to call for appointgalo t-RN spoke with Dr Khan's office will be calling pt for appointgalo t Osteoarthritis 651620324 M19.90 use tylenol arthritis prn Obesity 410096918 E66.9 BMI 28.3Health y weight range 100-130 Ht5' 1.5diet weight loss exercise Seasonal a llergic rhinitis 428358095 J30.2 Spasticity as sequela of stroke 9607234060 14094 R25.2 Neurologis t gave tizanidine 4mg every 6 hours seen just got refill at visitNeuro logist injected botox upper chest/arm/ legPatient seen by neurolognaomi t not getting BOTOX nowPatient doesnt tolerate TIZANIDINE Overactive urinary bladder 165928997 N32.81 Coronary atherosclerosis 237704165 I25.10 patient has seen Cardiology 08/14/2023 -- Peripheral neuropathy due to type 2 diabetes mellitus 3581521544 107 E11.42 reports L foot swelling and pain (not swollen today)Has been taking motrinpati ent advised cant take motrin secondary to CKDwork at blood sugar control Erectile dysfunction 860 578123 N52.9 120155193 Last seen in 2021Has tried viagra, levittra ,cialis did not helpNeeds re-evaluat ionSeen by Dr Arrington in the past-needs to see Dr Womack Pain of ri ght knee joint 7616241434 33314 M25.561 839355 Influenza vaccination declined 737630081 Z28.21 69556359 Health Concerns Section Related Observation LastModified by Organization Detai ls LastModified Time None Recorded Concern Status LastModified by Organization Details LastModified Time None Recorded Advance Directives Directive N: Payers Insurance Date Sequence Insurance Name Policy Number Policy Naqvi Covered Member ID Naqvi Member ID Guarantor Name 04/20/2025 1 [facility] (MEDICAID HMO) [id number] Leonardo Cabello [id number] Leonardo Cabello 04/20/2025 1 [facility] PRIOR TO 2021 (MEDICAID REPLACEMENT - HMO) Leonardo Cabello [id number] Leonardo Cabello 04/20/2025 3 [place] Leonardo Cabello [id number] Leonardo Cabello 07/22/2025 1 [employer] (MEDICARE REPLACEMENT/AD VANTAGE - HMO) [id number] Leonardo Cabello [id number] Leonardo Cabello 04/20/2025 1 [facility] (MEDICAID HMO) Leonardo Cabello [id number] Leonardo Cabello 07/19/2025 2 [place]CON[place] WHEN MEDICARE OR MEDICARE REPLACEMENT PRIMARY) Leonardo Cabello [id number] Leonardo Cabello Notes Date Note Type Note Provider Name and Address Organization Details Recorded Time 4 text/html HyperlipidemiaReported by PatientHPIFor compliance, patient reportsnoncompliant with dietanddoes not exercisebut reportscompliant. For risk factors, patient reportsdiabetes,hypertensio n,obesity, andlow hdl level. For control, patient reportsusually well controlled,improving, andat goal. For complications, patient reportsno coronary artery disease,no peripheral artery disease, andno cardiovascular disease. StrokeReported by PatientHPIFor aggravating factors, patient reportsuse of illicit drugsandoverweight(years ago). For associated symptoms, patient reportsweakness,clumsiness, difficulty finding desired words, andemotional labilitybut reportsno heaviness,no dysphagia,no garbled speech,no difficulty reading/writing,no difficulty calculating,no slurred speech,no sensory changes,no loss of vision,no total blindness,no double vision,no vision distortion,no vertigo,no imbalance,no neglect,no disorientation,no problems with recognition,no memory lapses or loss,no hoarseness,no hiccups,no tinnitus,no hearing changes,no pain,no shaking,no stiffness,no syncope,no incontinence,no confusion, andno fever. For hand dominance, patient reportsright. For location, patient reportsright sided symptoms. For duration, patient reportsdate of symptoms: 08/10/2019. For onset/timing, patient reportssudden onsetandresidual symptoms. For context, patient reportswarning signs prior to onset,history of cad/chf,history of cholesterolemia,history of diabetes,history of hypertension,family history of stroke,mri head,carotid dopplers,echo, andlabwork. For alleviating factors, patient reportspt,ot,rehabilitation ,aspirin,plavix,other meds, anddiet change. Diabetes F/UReported by PatientHPIFor context, patient reportshome blood sugar range highbut reportsseeing eye doctor regularly,checking feet regularly,taking aspirin daily,not missing doses of medications, andno side effects from medications. For review finger sticks, patient reportsfastinandpost breakfast: 250. For labs, patient reportslast a1c result: 9. For associated symptoms, patient reportsno weight gain,no weight loss,no dizziness,no sweats,no headaches,no confusion,no increased thirst,no increased appetite,no increased urination,no blurred vision,no numbness of feet, andno calluses on feet. Hypertension F/UReported by PatientHPIFor associated symptoms, patient reportsno dizziness,no lightheadedness,no chest pain,no shortness of breath,no palpitations,no edema, andno calf pain with exertion. For lifestyle, patient reportsregular exerciseandlimiting/avoidin g salt. For medications, patient reportstaking medications as directedandno side effects from medication. Major Depressive DisorderReported by PatientHPIFor associated symptoms, patient reportsfatigue,restlessness ,feelings of hopelessness,feelings of helplessness, andsleep disturbances. For severity, patient reportsmoderate. For modifying factors, patient reportspsychotropic medication. For onset/timing, (since having strokes and his residual deficits).ROS as noted in the HPI Patient is a 59-year-old male that presents for follow up/med refill of chronic meds. The patient has a PMH significant for T2 DM, history of stroke with persistent right-sided deficits. Patient is done with outpatient physical therapy for stroke deficits. Patient has difficulty using the right arm still at this time. Patient reports that the pain will sometimes awaken from sleep especially if he rolls over onto the shoulder. Patient unable to fully run through range of motion exercises due to the pain and deficits present. He reports that when he stretches affected sides he gets spasms on fingers and legs. Symptoms are brief. He is walking with cane and R knee brace on his own. He still has weakness of Right side but it is improving. He denies any numbness or tingling, blurry vision, double vision, facial droop, slurred speech, difficulty swallowing, seizure like symptoms,or other deficits.Patient agrees to continue use of Fluoxetine 20mg daily.He voices he practices what he has learned in therapy at home.The patient is complaining of having problems with erections. His erections sometimes are not hard enough for penetration. He doesnt feel Viagra or Cialis given help him at all. I had advised him to see urology to try penile injections. . He is not on Nitroglycerine. He was seen by Dr Wilson/urologist. However, he feels nothing has been done for this problem. Hence, he was sent to another urologist for ED/BPH. Dr. Arrington who has treated the patient with Levitra 20mg daily and samples of Gemtesa 75mg daily which the patient feels is helping with his nocturia. He was instructed to make a follow up with urologist. He denies any urinary burning at present time.He still drinking sodas. He continues to have BLE off and on some tenderness and calf cramping.Also having urinary incontinence if he doesnt get to toilet quickly. He denies trouble starting stream but feels like he has to go all the time. Denies urinary burning or urethral discharge. He is taking Oxybutin voices it helps.Patient reports L foot swelling and pain (not swollen today). Has been taking motrin. The patient advised cant take motrin secondary to CKD. Instructed to work at blood sugar control. Josué Victoria LEATHER TANNER- Attn: Accounting,[address] [facility], [place], [address], [place] [facility] 09/08/2024 17:36:37 5 text/html HyperlipidemiaReported by PatientHPIFor compliance, patient reportsnoncompliant with dietanddoes not exercisebut reportscompliant. For risk factors, patient reportsdiabetes,hypertensio n,obesity, andlow hdl level. For control, patient reportsusually well controlled,improving, andat goal. For complications, patient reportsno coronary artery disease,no peripheral artery disease, andno cardiovascular disease. StrokeReported by PatientHPIFor aggravating factors, patient reportsuse of illicit drugsandoverweight(years ago). For associated symptoms, patient reportsweakness,clumsiness, difficulty finding desired words, andemotional labilitybut reportsno heaviness,no dysphagia,no garbled speech,no difficulty reading/writing,no difficulty calculating,no slurred speech,no sensory changes,no loss of vision,no total blindness,no double vision,no vision distortion,no vertigo,no imbalance,no neglect,no disorientation,no problems with recognition,no memory lapses or loss,no hoarseness,no hiccups,no tinnitus,no hearing changes,no pain,no shaking,no stiffness,no syncope,no incontinence,no confusion, andno fever. For hand dominance, patient reportsright. For location, patient reportsright sided symptoms. For duration, patient reportsdate of symptoms: 08/10/2019. For onset/timing, patient reportssudden onsetandresidual symptoms. For context, patient reportswarning signs prior to onset,history of cad/chf,history of cholesterolemia,history of diabetes,history of hypertension,family history of stroke,mri head,carotid dopplers,echo, andlabwork. For alleviating factors, patient reportspt,ot,rehabilitation ,aspirin,plavix,other meds, anddiet change. Diabetes F/UReported by PatientHPIFor context, patient reportshome blood sugar range highbut reportsseeing eye doctor regularly,checking feet regularly,taking aspirin daily,not missing doses of medications, andno side effects from medications. For review finger sticks, patient reportsfastinandpost breakfast: 250. For labs, patient reportslast a1c result: 9. For associated symptoms, patient reportsno weight gain,no weight loss,no dizziness,no sweats,no headaches,no confusion,no increased thirst,no increased appetite,no increased urination,no blurred vision,no numbness of feet, andno calluses on feet. Hypertension F/UReported by PatientHPIFor associated symptoms, patient reportsno dizziness,no lightheadedness,no chest pain,no shortness of breath,no palpitations,no edema, andno calf pain with exertion. For lifestyle, patient reportsregular exerciseandlimiting/avoidin g salt. For medications, patient reportstaking medications as directedandno side effects from medication. Major Depressive DisorderReported by PatientHPIFor associated symptoms, patient reportsfatigue,restlessness ,feelings of hopelessness,feelings of helplessness, andsleep disturbances. For severity, patient reportsmoderate. For modifying factors, patient reportspsychotropic medication. For onset/timing, (since having strokes and his residual deficits).ROS as noted in the HPI Patient is a 59-year-old male that presents for follow up/med refill of chronic meds. The patient has a PMH significant for T2 DM, history of stroke with persistent right-sided deficits. Patient is done with outpatient physical therapy for stroke deficits. Patient has difficulty using the right arm still at this time. Patient reports that the pain will sometimes awaken from sleep especially if he rolls over onto the shoulder. Patient unable to fully run through range of motion exercises due to the pain and deficits present. He reports that when he stretches affected sides he gets spasms on fingers and legs. Symptoms are brief. He is walking with cane and R knee brace on his own. He still has weakness of Right side but it is improving. He denies any numbness or tingling, blurry vision, double vision, facial droop, slurred speech, difficulty swallowing, seizure like symptoms,or other deficits.Patient agrees to continue use of Fluoxetine 20mg daily.He voices he practices what he has learned in therapy at home.The patient is complaining of having problems with erections. His erections sometimes are not hard enough for penetration. He doesnt feel Viagra, Levittra or Cialis given have helped him at all. I had advised him to see urology to try penile injections. He is not on Nitroglycerine. He was seen by Dr Wilson/urologist. However, he feels nothing has been done for this problem. Hence, he was sent to another urologist for ED/BPH. Dr. Arrington who has treated the patient with Levitra 20mg daily and samples of Gemtesa 75mg daily which the patient feels is helping with his nocturia. He was instructed to make a follow up with urologist. He denies any urinary burning at present time.He still drinking sodas. He continues to have BLE off and on some tenderness and calf cramping.Also having urinary incontinence if he doesnt get to toilet quickly. He denies trouble starting stream but feels like he has to go all the time. Denies urinary burning or urethral discharge. He is taking Oxybutin voices it helps. MYNOR Burk Attn: Accounting,[address] [place], [address], [facility] 04/23/2025 14:19:59 5 text/html ROS as noted in the HPI 59 y/o HM presents to discuss need for a wheelchair.History of CVA with residual deficits-L pontine infarct 2019spasticity as sequela of strokeputting all his weight on His L side secondary to R hemiparesis, hence gets tired from his R side not having full strengthuses a cane hand gets tiredhas fallen several timeswheelchair would help with mobility-picking up his medications etc., GRETCHEN Burk Attn: Accounting,[address] [facility], [place], [address], [facility] 05/19/2025 18:02:39 5 text/html ROS as noted in the HPI 59 y/o M here for f/u chronic conditions. Pt is c/o R knee pain. Pt states that he has been having swelling and pain when he walks. It is not a daily. Pt has not been taking anything for pain. Pt is also c/o increased GERD s/sx. Does admit that he has been eating a lot of spicy foods. Denies any other problems or concerns. NATALIYA CARMICHAEL PA-C Attn: Accounting,[address] [place], [address], [facility] 07/23/2025 14:38:09
--- OUTSIDE RECORDS SUMMARY | 2025-09-28 14:47 | XMS_ITS | Clinical Summary ---
Author Organization [facility] Address [address] [place] [address] Care Team Providers Care Vocational Case Manager Name Role Phone Jeff, Josué Frazier CNC SERVICE ENGINEER-DIRECTOR INTERNAL CONTROL Primary Care Pro vider Source Comments [facility],non-owned Affiliates and Associated Physician Practices is amultiple site organization consisting of ambulatory clinics and hospital sitesin [place], [place], [place] and [place]. This disclosure is being madepursuant to the Care Everywhere program and may not contain all information available regarding this patient. Last updated 18.[facility] Yasmo Allergies No known active allergies Medications * Be aware that medications may not be up to date on this document. Alwaysverify current medications with the patient. clopidogrel (PLAVIX) 75 MG tablet Take 75 mg by mouth once daily Active SITagliptin (JANUVIA) 100 MG tablet Take 100 mg by mouth once daily Active ONETOUCH VERIO test strip 02/26/2018 Active lisinopril (PRINIVIL; ZESTRIL) 20 MG tablet Take 20 mg by mouth once daily 06/02/2018 Active Blood Glucose Monitoring Suppl (ONETOUCH VERIO) w/Device KIT 08/20/2019 Active metFORMIN (GLUCOPHAGE) 500 MG tablet Take 1,000 mg by mouth 2 times daily 08/18/2019 Active metoprolol succinate XL 24hr (TOPROL XL) 100 MG tablet Take 100 mg by mouth once daily 09/03/2019 Active atorvastatin (LIPITOR) 40 MG tablet Take 40 mg by mouth at bedtime Active empagliflozin (JARDIANCE) 10 MG tablet Take 10 mg by mouth once daily Active ASPIRIN 81 PO Take by mouth once daily Active tiZANidine (ZANAFLEX) 4 MG tabletIndication s:Spastic hemiparesis (HCC) Take 1 (one) tablet by mouth every 6 hours as needed for Muscle Spasms 90 tablet 1 03/03/2021 Active FLUoxetine (PROZAC) 20 MG tablet 03/26/2021 Active Farxiga 5 MG tablet 03/06/2022 Active Active Problems Problem Noted Date Diagnosed Date Obesity, unspecified 02/26/2019 Right shoulder pain 01/08/2019 Stage 1 chronic kidney disease 06/12/2016 CAD (coronary artery disease) 03/15/2016 Hyperlipidemia 03/15/2016 Hypertension 03/15/2016 Diabetes mellitus 03/15/2016 Social History Tobacco Use Types Packs/Day Years Used Date Smoking Tobacco: Former Smokeless Tobacco: Never Comments:smoked when he was young Alcohol Use Standard Drinks/Week Comments Never 0 (1 standard drink = 0.6 oz pur e alcohol) AUDIT-C Answer Date Recorded Frequency of Alcohol Consumption Never 11/04/2020 Average Number of Drinks Not on file 021 Frequency of Binge Drinking Not on file 12/2020 Sex and Gender Information Value Date Recorded Sex Assigned at Not on file Legal Sex Male 5:46 PM CNC OPERATOR PROGRAMMER Gender Identity Not on file Sexual Orientation Not on file Last Filed Vital Signs Vital Sign Reading Time Taken Comments Blood Pressure 146/91 06/06/2022 10:06 AM CDT Pulse 64 06/06/2022 10:06 AM CDT Temperature 36.8 C (98.3 F) 06/06/2022 10:06 AM CDT Respiratory Rate 20 03/03/2021 1:16 PM CDT Oxygen Saturation 95% 06/06/2022 10:06 AM CDT Inhaled Oxygen Concentration - - Weight 77.1 kg (170 lb) 06/06/2022 10:06 AM CDT Height 157.5 cm (5' 2) 06/06/2022 10:06 AM CDT Body Mass Index 31.09 06/06/2022 10:06 AM CDT Plan of Treatment Health Maintenance Due Date Last Done Comments COLOGUARD (AGES 45-75) - COL ON CA SCREENING 1966 COLON MONITORING 1966 COLONOSCOPY - COLON CA SCREENING 1966 CT COLONOGRAPHY - COLON CA SCREENING 1966 Colorectal Cancer Screening 1966 FIT - COLON CA SCREENING 1966 FLEX SIG - COLON CA SCREENING 1966 HEPATITIS C SCREENING 07/23/1984 DTAP/TDAP/TD VACCINES (1 - Tdap) 1985 HEPATITIS B VACCINE (1 of 3 - 19+ 3-dose series) 1985 PNEUMOCOCCAL VACCINE 50+ (1 of 2 - PCV) 1985 ZOSTER VACCINE (1 of 2) 2016 DIABETES-SERUM CREATININE 09/26/2020 09/26/2019 DIABETES RETINOPATHY SCREENING 08/31/2021 DIABETES-FOOT EXAM WITH MONOFILAMENT 08/31/2021 DIABETES-HGB A1C 08/31/2021 DEPRESSION SCREENING 10/01/2024 DIABETES - URINE PROTEIN SCREENING 10/01/2024 COVID-19 VACCINE (1 - 2024-2 6 season) 2025 INFLUENZA VACCINE (#1) 2025 HIV SCREENING Completed 09/26/2019 HIB VACCINE Aged Out No longer eligi ble based on patient's age to complete this topic HPV VACCINE Aged Out No longer eligi ble based on patient's age to complete this topic MENINGOCOCCAL (Group B) VACC INE SHARED DECISION-MAKING Aged Out No longer eligibl e based on patient's age to complete this topic MENINGOCOCCAL GROUPS A/C/Y/W VACCINE Aged Out No longer eligible b ased on patient's age to complete this topic Procedures Procedure Name Priority Date/Time Associated Diagnosis Comments COMPREHENSIVE METABOLIC PANEL STAT 09/26/2019 3:43 PM CNC OPERATOR PROGRAMMER HIV-1 HIV-2 ANTIGEN/ANTIBODY STAT 09/26/2019 3:43 PM CNC OPERATOR PROGRAMMER from Last 3 Months or Most Recently Relevant to Health Maintenance Results * HIV-1 HIV-2 ANTIGEN/ANTIBODY (09/26/2019 3:43 PM CNC OPERATOR PROGRAMMER) HIV Antigen/Antibod y 1 & 2 Non-reacti ve Non-react rosamaria 09/26/2019 4:49 PM [facility] Comment: Neither HIV-1 p24 Antigen nor HIV-1/HIV-2 Antibodies are detected. Blood BLOOD SPECIMEN / Unknown Venipuncture / Unknown 09/26/2019 3:43 PM CNC OPERATOR PROGRAMMER 09/26/2019 3:46 PM CNC OPERATOR PROGRAMMER us Nelly Espinosa MD LAB - HEMATOLOGY ORDERABLES Final Result [facility] [address] [phone] * (ABNORMAL) COMPREHENSIVE METABOLIC PANEL (09/26/2019 3:43 PM CNC OPERATOR PROGRAMMER) Pathologist [facility] BUN 14 7 - 26 mg/dL 09/26/2019 4:05 PM [facility] Creatinine 0.6 0.6 - 1.2 mg/dL 09/26/2019 4:05 PM [facility] Sodium 138 136 - 145 mmol/L 09/26/2019 4:05 PM [facility] Potassium 4.2 3.5 - 4.5 mmol/L 09/26/2019 4:05 PM [facility] Chloride 102 98 - 107 mmol/L 09/26/2019 4:05 PM [facility] CO2 25 22 - 29 mmol/L 09/26/2019 4:05 PM [facility] Glucose 140(H) 70 - 115 mg/dL 09/26/2019 4:05 PM [facility] Calcium 9.6 8.4 - 10.2 mg/dL 09/26/2019 4:05 PM [facility] Protein Total 8.0 6.0 - 8.3 g/dL 09/26/2019 4:05 PM [facility] Albumin 3.6 3.4 - 5.0 g/dL 09/26/2019 4:05 PM [facility] Bilirubin Total 0.7 0.2 - 1.2 mg/dL 09/26/2019 4:05 PM [facility] Alkaline Phosphatase 115 40 - 150 Units/L 09/26/2019 4:05 PM [facility] ALT 20 0 - 55 Units/L 09/26/2019 4:05 PM [facility] AST 16 5 - 34 Units/L 09/26/2019 4:05 PM [facility] Anion Gap 15 8 - 18 09/26/2019 4:05 PM [facility] BUN/Creatinine Ratio 23 7 - 23 09/26/2019 4:05 PM [facility] Osmolality Calculated 289 270 - 300 mOsm/kg 09/26/2019 4:05 PM [facility] Albumin/Globulin Ratio 0.8(L) 1.1 - 2.3 09/26/2019 4:05 PM [facility] eGFR >60 >60 mL/min/1.7 3 m2 09/26/2019 4:05 PM [facility] Blood BLOOD SPECIMEN / Unknown Venipuncture / Unknown 09/26/2019 3:43 PM CNC OPERATOR PROGRAMMER 09/26/2019 3:46 PM CNC OPERATOR PROGRAMMER Nelly Espinosa MD LAB - CHEMISTRY ORDERABLES F inal Result [facility] [address] [phone] from Last 3 Months or Most Recently Relevant to Health Maintenance Insurance MEDICAID - OUT OF STATE [employer] [facility] [employer] [facility] Care Teams Vocational Case Manager Relationship Specialty Start Date End Date Josué Aguilar APRN-MAICO [address] [place] [id number] PCP - General 01/09/20
--- OUTSIDE RECORDS SUMMARY | 2025-09-28 14:47 | XMS_ITS | Clinical Summary ---
Author Organization [facility] Address [address] [place] [id number] Phone Care Team Providers Care Show Host Or Hostess Name Role Phone Josué Aguilar MD Primary Care Provider [phone] Allergies No known active allergies Medications atorvastatin (LIPITOR) 40 MG tablet Take 40 mg by mouth 1 (one) time each day Active metFORMIN (GLUCOPHAGE) 1000 MG tablet Take 1,000 mg by mouth 1 (one) time each day with breakfast Active FLUoxetine (PROzac) 20 MG tablet Take 20 mg by mouth 1 (one) time each day Active famotidine (PEPCID) 20 MG tablet Take 20 mg by mouth 1 (one) time each day Active hydroCHLOROthia zide (HYDRODIURIL) 25 MG tablet Take 25 mg by mouth 1 (one) time each day Active Empagliflozin (Jardiance) 25 MG tablet Take 1 tablet by mouth 1 (one) time each day Active lisinopril (PRINIVIL) 20 MG tablet Take 20 mg by mouth 1 (one) time each day Active metoprolol succinate XL (TOPROL-XL) 100 MG 24 hr tablet Take 100 mg by mouth 1 (one) time each day Active oxybutynin XL (DITROPAN-XL) 5 MG 24 hr tablet Take 5 mg by mouth 1 (one) time each day Active tiZANidine (ZANAFLEX) 4 MG capsule Take 4 mg by mouth 1 (one) time each day Active Active Problems Problem Noted Date Diagnosed Date Diabetes mellitus with renal manifestations, type II or unspecified type, uncontrolled 2025 Chronic kidney disease 06/12/2016 Essential (primary) hypertension 06/12/2016 Hyperlipidemia 06/12/2016 Resolved Problems Problem Noted Date Diagnosed Date Resolved Date Obesity associated disorder 02/26/2019 02/01/2023 Type 2 diabetes mellitus wit h other diabetic kidney complication 06/12/2016 2025 Encounters Date Type Department Care Team Description 08/06/2025 3:00 PM LSW Office Visit [facility] [address] [facility] [address] [place] [address] Steven Khan MD Stage 1 chronic kidney disease (Primary Dx); Essential (primary) hypertension; Diabetes mellitus with renal manifestations, type II or unspecified type, uncontrolled ([facility]) from Last 3 Months Immunizations Immunization Administration Dates Next Due Influenza TIV (IM) 07/01/2015(Deferred: Patient Refused) Family History Medical History Relation Comments Diabetes Brother Diabetes Father Diabetes mellitus Father Diabetes Mother Diabetes mellitus Mother Heart disease Mother Diabetes Sister Kidney disease Neg Hx Relation Status Comments Brother Father Mother Sister Social History Tobacco Use Types Packs/Day Years Used Date Smoking Tobacco: Never Smokeless Tobacco: Never Tobacco Cessation:Counseling Given: Not Answered Alcohol Use Standard Drinks/Week Comments No 0 (1 standard drink = 0.6 oz pur e alcohol) AUDIT-C Answer Date Recorded Frequency of Alcohol Consumption Never 01/17/2019 Average Number of Drinks Not on file 019 Frequency of Binge Drinking Not on file 12/30 Sex and Gender Information Value Date Recorded Sex Assigned at Not on file Legal Sex Male 8:31 AM [facility] Gender Identity Not on file Sexual Orientation Not on file Last Filed Vital Signs Vital Sign Reading Time Taken Comments Blood Pressure 131/78 08/06/2025 2:46 PM LSW Pulse 80 08/06/2025 2:46 PM LSW Temperature - - Respiratory Rate - - Oxygen Saturation - - Inhaled Oxygen Concentration - - Weight 70.8 kg (156 lb) 08/06/2025 2:46 PM LSW Height 154.9 cm (5' 1) 08/06/2025 2:46 PM LSW Body Mass Index 29.48 08/06/2025 2:46 PM LSW Plan of Treatment Upcoming Encounters Date Type Department Care Team ([facility] st Contact Info) Description 08/04/2026 3:00 PM LSW Office Visit [facility] [address] [address] [place] [address] Steven Khan MD [address] [address] Health Maintenance Due Date Last Done Comments Diabetic Foot Exam 1976 Ophthalmology Exam 1976 Pneumococcal PPSV23 Highest Risk Adult (2 of 3 - PPSV23) 11/08/2021 09/13/2021 COVID-19 Vaccine (3 - 2024-2 6 season) 2025 12/17/2021, 02/12/2021 Influenza Vaccine (#1) 2025 , 09/04/2022, 06/15/2021, Additional history exists Insurance [employer] , [address] [phone] PM INTERFACED INSURANCE Care Teams Show Host Or Hostess Relationship Specialty Start Date End Date Josué Aguilar MD [address] [id number] PCP - General Family Medicine 03/26/19
--- OUTSIDE RECORDS SUMMARY | 2025-09-28 14:47 | XMS_ITS | Encounter Summary ---
Author Organization [facility] Address [address] [place] [address] Care Team Providers Care Brand Coordinator Name Role Phone Thierno Michel MD Unavailable Unavailable Josué Aguilar [facility] Primary Care Provider [phone] Olayinka Espinoza MD Unavailable [phone] Encounter Details Date Type Department Care Team (Late st Contact Info) Description 04/20/2017 Abstract [facility] AT [address] [id number] Jorgito Polanco MA Social History Tobacco Use Types Packs/Day Years Used Date Smoking Tobacco: Never Smokeless Tobacco: Never Alcohol Use Standard Drinks/Week Comments No 0 (1 standard drink = 0.6 oz pur e alcohol) Sex and Gender Information Value Date Recorded Sex Assigned at Male 11/12/2024 2:54 PM GRASSLAND CONSERVATIONIST Legal Sex Male 12:14 AM CDT Gender Identity Not on file Sexual Orientation Not on file 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 Not on file Not on file Not on file documented as of this encounter Plan of Treatment Upcoming Encounters Date Type Department Care Team (Late st Contact Info) Description 11/18/2025 3:00 PM GRASSLAND CONSERVATIONIST Office Visit [facility], [place] [place], [place] [id number] Olayinka Espinoza MD [facility]. [address] [place], [place] [phone] documented as of this encounter Procedures Procedure Name Priority Date/Time Associated Diagnosis Comments COMPREHENSIVE METABOLIC PANEL Routine 06/21/2018 LIPID PANEL Routine 06/21/2018 CBC (OUTSIDE LAB) Routine 10/19/2017 PROSTATE SPECIFIC ANTIGEN,TOTAL Routine 10/19/2017 COMPREHENSIVE METABOLIC PANEL Routine 10/19/2017 HEMOGLOBIN GLYCOSYLATED A1C Routine 10/19/2017 CBC (OUTSIDE LAB) Routine 12/22/2016 COMPREHENSIVE METABOLIC PANEL Routine 12/22/2016 HEMOGLOBIN GLYCOSYLATED A1C Routine 12/22/2016 THYROID STIM HORMONE TSH Routine 12/22/2016 LIPID PANEL Routine 09/22/2016 documented in this encounter Results * (ABNORMAL) COMPREHENSIVE METABOLIC PANEL (06/21/2018) SODIUM S/P/B 135 POTASSIUM S/P/B 5.0 CO2 26.7 CHLORIDE S/P/B 97 GLUCOSE 439 mg/dL CALCIUM S/P/B 10.2 BUN 19 CREATININE S/P/B 0.7 0.7 - 1.3 EGFR AFR. AMER. 153 EGFR NON-AFR. AMER. 127(A) <=90 ALKALINE PHOSPHATASE S/P/B 113 ALT 17 AST 10 BILIRUBIN TOTAL S/P/B 0.7 ALBUMIN S/P/B 3.9 3.5 - 5.0 TOTAL PROTEIN S/P/B 7.5 06/21/2018 us Doc [facility] LAB[facility]ATORY Final Result * LIPID PANEL (06/21/2018) CHOLESTEROL 134 HDL 47 TRIGLYCERIDES 298 DIRECT LDL 67 06/21/2018 Doc [facility] LABORATORY Final Result * PROSTATE SPECIFIC ANTIGEN,TOTAL (10/19/2017) PSA 1.2 10/19/2017 Doc [facility] Abstract LABORATORY Final Result * HEMOGLOBIN, GLYCOSYLATED (10/19/2017) Pathologist [facility] HGB A1C 11.5 10/19/2017 Doc [facility] Abstract LABORATORY Final Result * (ABNORMAL) COMPREHENSIVE METABOLIC PANEL (10/19/2017) Pathologist [facility] SODIUM S/P/B 139 POTASSIUM S/P/B 4.7 CO2 25.9 CHLORIDE S/P/B 100 GLUCOSE 262 mg/dL CALCIUM S/P/B 9.3 BUN 13 CREATININE S/P/B 0.50(A) 0.7 - 1.3 EGFR AFR. AMER. 226 EGFR NON-AFR. AMER. 187(A) <=90 ALKALINE PHOSPHATASE S/P/B 101 ALT 16 AST 14 BILIRUBIN TOTAL S/P/B 0.7 ALBUMIN S/P/B 3.9 3.5 - 5.0 TOTAL PROTEIN S/P/B 7.8 10/19/2017 Doc [facility] Abstract LABORATORY Final Result * CBC (OUTSIDE LAB) (10/19/2017) Pathologist [facility] WBC 9.4 HGB 14.6 HCT 44.1 PLT 265 10/19/2017 Doc [facility] Abstract LAB-OUTSIDE/ABSTRACTED Final Result * THYROID STIM HORMONE, TSH (12/22/2016) TSH 1.19 12/22/2016 us Doc [facility] Abstract LABORATORY Final Result * HEMOGLOBIN, GLYCOSYLATED (12/22/2016) Pathologist [facility] HGB A1C 8.4 12/22/2016 us Doc [facility] Abstract LABORATORY Edited Resul t - Final * (ABNORMAL) COMPREHENSIVE METABOLIC PANEL (12/22/2016) Pathologist [facility] SODIUM S/P/B 139 POTASSIUM S/P/B 4.6 CO2 23 CHLORIDE S/P/B 100 GLUCOSE 171 CALCIUM S/P/B 9.7 BUN 11 CREATININE S/P/B 0.40(A) 0.7 - 1.3 EGFR AFR. AMER. 294 EGFR NON-AFR. AMER. 242(A) <=90 ALKALINE PHOSPHATASE S/P/B 98 ALT 27 AST 21 BILIRUBIN TOTAL S/P/B 0.8 ALBUMIN S/P/B 4.1 3.5 - 5.0 TOTAL PROTEIN S/P/B 7.5 12/22/2016 us Doc [facility] Abstract LABORATORY Final Result * CBC (OUTSIDE LAB) (12/22/2016) Pathologist [facility] WBC 8.6 HGB 14.8 HCT 44.2 PLT 275 12/22/2016 us Doc [facility] Abstract LAB-OUTSIDE/ABSTRACTED Final Result * LIPID PANEL (09/22/2016) Pathologist [facility] CHOLESTEROL 171 HDL 43 TRIGLYCERIDES 223 LDL (CALCULATED) 83 09/22/2016 us Doc [facility] Abstract LABORATORY Final Result documented in this encounter Visit Diagnoses Not on filedocumented in this encounter Care Teams Brand Coordinator Relationship Specialty Start Date End Date Josué Aguilar CNP PCP - General NURSE PRACTITIONER 03/15/16 Thierno Michel MD [facility]ra Instrumentation Technician CARDIOVASCULAR DISEASE 03/13/16 Olayinka Espinoza MD [facility]. [facility] [address] [place] [address] [place] Instrumentation Technician CARDIOVASCULAR DISEASE 11/02/17 documented as of this encounter
--- OUTSIDE RECORDS SUMMARY | 2025-09-28 14:47 | XMS_ITS | Encounter Summary ---
Author Organization [facility] Address [facility] [place] [address] Care Team Providers Care Senior Cyber Security Analyst Name Role Phone Josué Aguilar CNP Primary Care Provider [phone] Olayinka Espinoza MD Unavailable Encounter Details Date Type Department Care Team (Late Contact Info) Description 01/06/2022 Abstract [facility], [facility] [address] [place] [address] Sonali Dooley, RMA Social History Tobacco Use Types Packs/Day Years Used Date Smoking Tobacco: Never Smokeless Tobacco: Never Alcohol Use Standard Drinks/Week Comments No 0 (1 standard drink = 0.6 oz pur e alcohol) Sex and Gender Information Value Date Recorded Sex Assigned at Male 11/12/2024 2:54 PM DEPARTMENT OF MATHEMATICS CHAIR Legal Sex Male 12:14 AM CDT Gender Identity Not on file Sexual Orientation Not on file 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 No / Unsure 12/27/2021 5:29 PM CDT documented as of this encounter Plan of Treatment Upcoming Encounters Date Type Department Care Team (Late st Contact Info) Description 11/18/2025 3:00 PM DEPARTMENT OF MATHEMATICS CHAIR Office Visit [facility], [place] [place], [place] [phone] Olayinka Espinoza MD [address] [place] [place], [place] [phone] documented as of this encounter Procedures Procedure Name Priority Date/Time Associated Diagnosis Comments BASIC METABOLIC PANEL Routine 12/31/2021 LIPID PANEL Routine 12/31/2021 documented in this encounter Results * LIPID PANEL (12/31/2021) CHOLESTEROL 112 HDL 32 TRIGLYCERIDES 177 LDL (CALCULATED) 35 12/31/2021 us Doc [facility] Abstract LABORATORY Final Result * (ABNORMAL) BASIC METABOLIC PANEL (12/31/2021) SODIUM S/P/B 140 POTASSIUM S/P/B 4.6 CO2 28 CHLORIDE S/P/B 105 GLUCOSE 150 mg/dL CALCIUM S/P/B 9.0 BUN 13 CREATININE S/P/B 0.60(A) 0.7 - 1.3 EGFR NON-AFR. AMER. >60 <=90 12/31/2021 us Doc [facility] Abstract LABORATORY Final Result documented in this encounter Visit Diagnoses Not on filedocumented in this encounter Care Teams Senior Cyber Security Analyst Relationship Specialty Start Date End Date Josué Aguilar CNP PCP - General NURSE PRACTITIONER 03/15/16 Olayinka Espinoza MD [address] [place] [place], [place] [phone] Spiro Grinding Machine Tender CARDIOVASCULAR DISEASE 11/02/17 documented as of this encounter
--- OUTSIDE RECORDS SUMMARY | 2025-09-28 14:47 | XMS_ITS | Encounter Summary ---
Author Organization [facility] Address Formerly [facility] [place] [address] Care Team Providers Care Power Distribution Engineer Name Role Phone Thierno Michel MD Unavailable Unavailable Josué Aguilar BURR BENCH OPERATOR Primary Care Provider [phone] Josué Aguilar BURR BENCH OPERATOR Primary Care Provider [phone] Olayinka Espinoza MD Unavailable [phone] Encounter Details Date Type Department Care Team (Late Contact Info) Description 09/13/2015 Abstract [facility] AT [address] [address] Saelna Ferrara, [facility]- [address], [place] [id number] Social History Tobacco Use Types Packs/Day Years Used Date Smoking Tobacco: Never Smokeless Tobacco: Never Alcohol Use Standard Drinks/Week Comments No 0 (1 standard drink = 0.6 oz pur e alcohol) Sex and Gender Information Value Date Recorded Sex Assigned at Male 11/12/2024 2:54 PM CASE ASSISTANT Legal Sex Male 12:14 AM CDT Gender Identity Not on file Sexual Orientation Not on file 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 [address] [place], [place] [address] documented as of this encounter Visit Diagnoses Not on filedocumented in this encounter Care Teams Power Distribution Engineer Relationship Specialty Start Date End Date Josué Aguilar CNP PCP - General NURSE PRACTITIONER 03/15/16 Josué Aguilar CNP PCP - General 05/14/15 03/14/16 Thierno Michel MD [facility] Center Machine Set Up Operator CARDIOVASCULAR DISEASE 03/13/16 Olayinka Espinoza MD [facility]. [facility] [address] [place], [place] [phone] Zahra Center Machine Set Up Operator CARDIOVASCULAR DISEASE 11/02/17 documented as of this encounter
--- OUTSIDE RECORDS SUMMARY | 2025-09-28 14:47 | XMS_ITS | Encounter Summary ---
Author Organization [facility] Address [address] [place] [address] Care Team Providers Care Assistant Counsel Name Role Phone JeffJosué arboleda Mila NINA Primary Care Provider [phone] Olayinka Espinoza MD Unavailable [phone] Encounter Details Date Type Department Care Team (Late st Contact Info) Description 04/13/2020 Abstract [facility] [address] [place] [address] Jorgito Polanco MA Social History Tobacco Use Types Packs/Day Years Used Date Smoking Tobacco: Never Smokeless Tobacco: Never Alcohol Use Standard Drinks/Week Comments No 0 (1 standard drink = 0.6 oz pur e alcohol) Sex and Gender Information Value Date Recorded Sex Assigned at Male 11/12/2024 2:54 PM PROJECT COORDINATOR Legal Sex Male 12:14 AM CDT Gender Identity Not on file Sexual Orientation Not on file 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. [address] [place], [place] [phone] documented as of this encounter Procedures Procedure Name Priority Date/Time Associated Diagnosis Comments COMPREHENSIVE METABOLIC PANEL Routine 06/11/2024 LIPID PANEL Routine 06/11/2024 COMPREHENSIVE METABOLIC PANEL Routine 01/01/2021 LIPID PANEL Routine 01/01/2021 CBC (OUTSIDE LAB) Routine 11/20/2019 COMPREHENSIVE METABOLIC PANEL Routine 11/20/2019 LIPID PANEL Routine 11/20/2019 HEMOGLOBIN GLYCOSYLATED A1C Routine 11/20/2019 documented in this encounter Results * LIPID PANEL (06/11/2024) CHOLESTEROL 116 HDL 34 TRIGLYCERIDES 254 LDL (CALCULATED) 43 06/11/2024 us Default History Genericprovider LABORATORY Final Result * COMPREHENSIVE METABOLIC PANEL (06/11/2024) SODIUM S/P/B 141 POTASSIUM S/P/B 4.7 CO2 27 CHLORIDE S/P/B 98 GLUCOSE 112 mg/dL CALCIUM S/P/B 10.0 BUN 13 CREATININE S/P/B 0.77 0.7 - 1.3 GFR ESTIMATE 104 ALKALINE PHOSPHATASE S/P/B 141 ALT 22 AST 20 BILIRUBIN TOTAL S/P/B 0.8 ALBUMIN S/P/B 4.2 3.5 - 5.0 TOTAL PROTEIN S/P/B 7.8 06/11/2024 us Default History Genericprovider LABORATORY Final Result * LIPID PANEL (01/01/2021) CHOLESTEROL 112 HDL 32 TRIGLYCERIDES 193 DIRECT LDL 46 01/01/2021 us Doc [facility] Abstract LABORATORY Final Result * (ABNORMAL) COMPREHENSIVE METABOLIC PANEL (01/01/2021) SODIUM S/P/B 141 POTASSIUM S/P/B 4.3 CO2 29 CHLORIDE S/P/B 104 GLUCOSE 117 mg/dL CALCIUM S/P/B 9.0 BUN 12 CREATININE S/P/B 0.50(A) 0.7 - 1.3 EGFR NON-AFR. AMER. >60 <=90 ALKALINE PHOSPHATASE S/P/B 128 ALT 167 AST 98 BILIRUBIN TOTAL S/P/B 0.8 ALBUMIN S/P/B 4.1 3.5 - 5.0 TOTAL PROTEIN S/P/B 8.0 01/01/2021 us Doc [facility] Abstract LABORATORY Final Result * HEMOGLOBIN, GLYCOSYLATED (11/20/2019) Pathologist [facility] HGB A1C 7.2 % 11/20/2019 us Doc [facility] Abstract LABORATORY Final Result * CBC (OUTSIDE LAB) (11/20/2019) Pathologist [facility] WBC 12.9 HGB 15.2 HCT 47.5 PLT 275 11/20/2019 us Doc [facility] Abstract LAB-OUTSIDE/ABSTRACTED Final Result * LIPID PANEL (11/20/2019) Pathologist [facility] CHOLESTEROL 130.2 HDL 51.5 TRIGLYCERIDES 113 LDL (CALCULATED) 62 11/20/2019 us Doc [facility] Abstract LABORATORY Final Result * (ABNORMAL) COMPREHENSIVE METABOLIC PANEL (11/20/2019) Pathologist [facility] SODIUM S/P/B 137.5 POTASSIUM S/P/B 4.8 CO2 21.6 CHLORIDE S/P/B 102 GLUCOSE 102 mg/dL CALCIUM S/P/B 10.4 BUN 16 CREATININE S/P/B 0.45(A) 0.7 - 1.3 EGFR NON-AFR. AMER. 209(A) <=90 ALKALINE PHOSPHATASE S/P/B 122.1 ALT 16.7 AST 14.5 BILIRUBIN TOTAL S/P/B 0.6 ALBUMIN S/P/B 4.4 3.5 - 5.0 TOTAL PROTEIN S/P/B 8.2 11/20/2019 us Doc [facility] Abstract LABORATORY Final Result documented in this encounter Visit Diagnoses Not on filedocumented in this encounter Care Teams Assistant Counsel Relationship Specialty Start Date End Date Josué Aguilar CNP PCP - General NURSE PRACTITIONER 03/15/16 Olayinka Espinoza MD [address] [place] [address] [place] Reclamation Engineer CARDIOVASCULAR DISEASE 11/02/17 documented as of this encounter
--- OUTSIDE RECORDS SUMMARY | 2025-09-28 14:47 | XMS_ITS | Encounter Summary ---
Author Organization [facility] Address [address] [place] [address] Care Team Providers Care Link And Link Knitting Machine Operator Name Role Phone Thierno Michel MD Unavailable Unavailable Josué Aguilar CONTRACT SHELTERED WORKSHOP SUPERVISOR Primary Care Provider [phone] Josué Aguilar [facility] Primary Care Provider [phone] Olayinka Espinoza MD Unavailable [phone] Encounter Details Date Type Department Care Team (Late Contact Info) Description 03/13/2016 Abstract [facility] AT [address] [address] Lexus [place], [facility] Social History Tobacco Use Types Packs/Day Years Used Date Smoking Tobacco: Never Smokeless Tobacco: Never Alcohol Use Standard Drinks/Week Comments No 0 (1 standard drink = 0.6 oz pur e alcohol) Sex and Gender Information Value Date Recorded Sex Assigned at Male 11/12/2024 2:54 PM GARMENT FORM ASSEMBLER Legal Sex Male 12:14 AM CDT Gender Identity Not on file Sexual Orientation Not on file 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 [address] [address] documented as of this encounter Procedures Procedure Name Priority Date/Time Associated Diagnosis Comments BASIC METABOLIC PANEL Routine 03/13/2016 LIPID PANEL Routine 03/13/2016 CK (CPK) Routine 03/13/2016 TRANSFERASE ALANINE AMINO ALT SGPT Routine 03/13/2016 documented in this encounter Results * CK (CPK) (03/13/2016) CPK 107 03/13/2016 us Doc [facility] LAB[facility]AT[facility] Final Result * ALT/SGPT (03/13/2016) ALT 18 03/13/2016 us Doc [facility] LABORATORY Final Result * BASIC METABOLIC PANEL (03/13/2016) SODIUM S/P/B 140 POTASSIUM S/P/B 3.9 CO2 25 CHLORIDE S/P/B 103 GLUCOSE 111 CALCIUM S/P/B 9.1 BUN 9 CREATININE S/P/B 0.51 EGFR NON-AFR. AMER. >60 03/13/2016 us Doc [facility] Abstract LABORATORY Final Result * LIPID PANEL (03/13/2016) CHOLESTEROL 171 HDL 49 TRIGLYCERIDES 269 LDL (CALCULATED) 68 03/13/2016 us Doc [facility] Abstract LABORATORY Final Result documented in this encounter Visit Diagnoses Not on filedocumented in this encounter Care Teams Link And Link Knitting Machine Operator Relationship Specialty Start Date End Date Josué Aguilar CNP PCP - General NURSE PRACTITIONER 03/15/16 Josué Aguilar CNP PCP - General 05/14/15 03/14/16 Thierno Michel MD [facility]ahra Deaf Teacher CARDIOVASCULAR DISEASE 03/13/16 Olayinka Espinoza MD [id number] [place] [address] Zahra Deaf Teacher CARDIOVASCULAR DISEASE 11/02/17 documented as of this encounter
[2025-09-28 14:48] VITALS: BP 132/80; PULSE 88; RESP 18; TEMP 36.7; O2SAT 97
--- OUTSIDE RECORDS SUMMARY | 2025-09-28 14:48 | XMS_ITS | Continuity of Care Document ---
Author Organization [facility] Address [address] [place] [address] Care Team Providers Care Parts Manager Name Role Phone JOSUÉ VICTORIA Primary Care Provider KADEEM MICHELLE Termite Control Representative JED ANDERSON Air Cargo Agent [facility] Neurologist JAROCHO KIRBY Neurologist Assessment No assessment recorded. Plan of Treatment Reminders Order Date Submit Date Provider Last Modified By Organization Details Last Modified Time Details Appointments ANY 30 2025 03:15P Natacha Anton Not available Not available Not available Lab HbA1c (hemog lobin A1c), blood 2024 025 [id number] In-Office Order, Internal Use Only DO Not Attach Compendium DO Not Attach Compendium, Do Not Delete/merge, [id number] 07/22/2025 16:38:43 glucos e, finger stick, blood 2024 025 [email or web address] In-Office Order, Internal Use Only DO Not Attach Compendium DO Not Attach Compendium, Do Not Delete/merge, 07/22/2025 16:38:44 PSA, total, serum or plasma 2024 025 [facility], [address] [place] [address], [address], [place], [address], 07/23/2025 08:32:52 Referral None record ed. Procedures None record ed. Surgeries None record ed. Imaging XR, knee, 3 view 2024 [facility], [address] [place] [address] [address], [place], [address], 09/16/2025 09:48:01 Medication Orders metfor min 1,000 mg tablet 2024 [facility], [address] [place] [address], [id number], 07/22/2025 16:39:01 Jardia nce 25 mg tablet 2024 [facility], [address] [place] [address], [id number], 07/22/2025 16:38:59 Ozempi c 1 mg/dos e (4 mg/3 mL) subcut aneous pen inject or 2024 [facility], [address] [place] [address], [id number], 07/22/2025 16:38:56 Glucos amine Chondr oitin Maximu m Streng th 500 mg-400 mg capsul e 2024 [facility], [address] [place] [address], [address], 07/22/2025 16:38:56 Voltar en Arthri tis Pain 1 % topica l gel 2024 [facility], [address] [place] [address], [address], 07/22/2025 16:38:58 metopr olol succin ate ER 100 mg tablet ,exten ded releas e 24 hr 2024 [facility], [address] [place] [address], [address], 07/22/2025 16:39:00 oxybut ynin chlori de ER 5 mg tablet ,exten ded releas e 24 hr 2024 [facility], [address] [place] [address], [id number], 07/22/2025 16:39:04 atorva statin 40 mg tablet 2024 [facility], [address] [place] [address], [address], 07/22/2025 16:38:57 fluoxe jo 20 mg tablet 2024 [facility], [address] [place] [address], [address], 07/22/2025 16:38:57 famoti dine 20 mg tablet 2024 [facility], [address] [place] [address], [address], 07/22/2025 16:39:00 cetiri zine 10 mg tablet 2024 [facility], [address] [place] [address], [id number], 07/22/2025 16:39:01 Vitami n D3 25 mcg (1,000 unit) tablet 2024 [facility], [address] [place] [address], [address], 07/22/2025 16:38:57 Patient TargetsNo targets recorded. Patient Instructions Encounter Date Encounter Id Patient Instructions Last Modified By Organization Details Last Modified Time 07/22/2025 [id number] A healthy lifestyle: care instructions [email or web address] Not available 07/22/2025 16:38:44 aprenda sobre la presi n arterial ashok - [learning about high blood pressure] [email or web address] Not available 07/22/2025 16:38:43 C mo evitar la recurrencia de la depresi n: Instrucciones de cuidado - [Preventing Depression From Coming Back: Care Instructions] [email or web address] Not available 07/22/2025 16:38:43 enfermedad de reflujo gastroesof gico (GERD): instrucciones de cuidado - [gastroesophageal reflux disease (GERD): care instructions] [email or web address] Not available 07/22/2025 16:38:44 aprenda acerca d el peso saludable - [learning about healthy weight] Not available 07/22/2025 16:38:43 ndice de masa corporal: instrucciones de cuidado - [body mass index: care instructions] Not available 07/22/2025 16:38:44 Reason for Referral None Reported. Results Created Date Observation Date Name Description Value Unit Range Abnormal Flag Note LastModifiedBy Organization Detail LastModifiedTime 07/22/2007/23/2025 PROST ATE-S PECIF IC AG prostate [...] t be inter prete d as absol johny evide nce of the prese nce or absen ce of sanchez wilson disea se. Not Available [facility] ([facility]) [address] [facility], [place], [address], 07/23/2025 08:32:52 07/22/2007/22/2025 HbA1c (hemo globi n A1c), blood HbA1C 6.8 % Not Available In-Office Order Internal Use Only DO Not Attach Compendium DO Not Attach Compendium, Do Not Delete/merge, [id number] 07/22/2025 15:55:57 07/22/20 07/22/2025 gluco se, finge rstic k, blood Blood Glucose: mg/dl 180 Not Available In-Off ice Order Internal Use Only DO Not Attach Compendium DO Not Attach Compendium, Do Not Delete/merge, [id number] 07/22/2025 15:56:02 Result Notes None recorded. Problems Name Problem SNOMED Code Status Onset Date Resolution Date Notes Provider Name and Address Organization Details Recorded Time [facility] corey 33824798 Active Cara bhandari MA null, [place] - [facility] 2 16:19:34 Chronic renal impairme nt Active TITI BurkVARSHA Attn: Anita austin,[address] [facility], [place], [place], [address] [place] [address] 2, [facility] - S[facility] 2 16:49:48 Coronary atherosc lerosis 441886883 Active TITI BurkVARSHA Attn: Anita austin,[address] [place], [place], [address] [place] [address] 2, [facility] - [facility] 2 16:49:48 Osteoart hritis 556300102 Active Cara bhandari [place] null, [place] [facility] 2 16:19:50 Type 2 diabetes mellitus without complica tion 396033739 Completed 09/22/2016 NATACHA Burk Attn: Anita austin,[address] [place], [place], [address] [place] [address] 2, [facility] - [facility] 6 11:24:05 Acute gastriti s 37801145 Completed 06/21/2018 Amy Stewart RN null, [place] [facility] 8 11:25:26 Obesity 919720498 Active NATACHA Burk Attn: Sandyjamie g,[address] [place], [address], [place] [facility] 2 16:49:48 Vitiligo 82291938 Active NATACHA Burk Attn: Anita g,[address] [place], [address], [place] [facility] 2 16:49:48 Gastroes ophageal reflux disease 241765555 Active Cara Betakeri bhandari [place], [place] [facility] 2 16:20:08 Hyperlip idemia 85225257 Active Cara Betakeri bhandari [place] [facility] 2 16:19:57 Pain of hip region 40514222 Completed 06/21/2018 Amy Stewart [place] [facility] 8 11:25:36 Nocturia 822365836 Completed 06/21/2018 [place] [facility] 8 11:25:51 Disorder of nail 95856659 Completed 06/21/2018 Amy Stewart [place] [facility] 8 11:25:19 Tubular adenoma 252668386 Completed 201604/01/2021 WEN ACEVEDO, [employer] [address] [place], [address], [place] [facility] 1 13:38:36 Polyp of cecum 962186142 Completed 201611/01/2018 NATACHA Burk Attn: Anita avila,[address] [place], [address], [place] [facility] 9 14:24:31 Rectal polyp 52040836 Active 2016 follows with GI NATACHA Day Attn: Anita avila,[address] [place], [address], [place] [facility] 2 16:49:48 Diabetes mellitus 29684825 Completed 201611/01/2018 NATACHA Burk Attn: Anita avila,[address] [place], [address], [place] [facility] 9 14:24:19 Multiple complica tions due to type 2 diabetes mellitus Active 2018 NATACHA Burk Attn: Accountin g,[address] [facility], [place], [address], [place] [facility] 2 16:49:48 Pruritus ani 01906665 Completed 201809/13/2021 Amy Stewart RN [place] [facility] 1 11:04:48 History of cerebrov ascular accident 944334503 Active 2018 Josué Victoria [facility] Attn: Accountin g,[address] [facility], [place], [address], [place] [facility] 2 16:49:48 Right hemipare sis 153565025 Active 2018 Josué Victoria [facility] Attn: Accountin g,[address] [facility], [place], [address], [place] [facility] 2 16:49:48 Spastici ty as sequela of stroke 71059438838 9102 Active 2020 Josué Victoria [facility] Attn: Accountin g,[address] [facility], [place], [address], [place] [facility] 2 16:49:48 Steatoti c liver disease 500632110 Active 2020 Fibrosca n 1: F2, S3 Josué Victoria [facility] Attn: Accountin g,[address] [facility], [place], [address], [facility] - [facility] 2 16:49:48 Tubular adenomat ous polyp of colon 412589021 Active 2020 Next colonosc opy Septembe r 2025 Josué Victoria [facility] Attn: Accountin g,[address] [facility], [place], [address], [place] [facility] 2 16:49:48 Body mass index 30+ - obesity 600364386 Active 2020 Josué Victoria [facility] Attn: Accountin g,[address] [facility], [place], [address], [place] [facility] 2 16:49:48 Internal hemorrho ids 17787736 Active 2020 Josué Victoria [facility] Attn: Anita avila,[address] [facility], [place], [address], [place] [facility] 2 16:49:48 Divertic ulosis of colon 959174338 Active 2020 Josué Victoria [facility] Attn: Anita avila,[address] [facility], [place], [address], [place] [facility] 2 16:49:48 Abnormal liver function 00618188 Active 2020 Cara [place]hand[place] [facility] 2 16:19:19 Vitamin D deficien cy 74861870 Active 2020 Cara bhand[place] [facility] 2 16:19:42 Benign prostati c hyperpla julieth without outflow obstruct ion 040086891 Active 2021 Josué Victoria [facility] Attn: Anita avila,[address] [facility], [place], [address], [place] [facility] 2 16:49:48 Complain ing of erectile dysfunct ion Active 2021 Josué Victoria [facility] Attn: Anita avila,[address] [facility], [place], [address], [place] [facility] 2 16:49:48 Chronic kidney disease 800098150 Active 2021 Cara bhand[place] [facility] 2 16:19:26 Lumbar spondylo sis 831516602 Active 2021 Josué Victoria [facility] Attn: Anita avila,[address] [facility], [place], [address], [place] [facility] 2 14:48:06 Major depressi ve disorder 104789803 Active 2022 [facility] Attn: Anita avila,[address] [facility], [place], [address] [place] [address] 2, [facility] - SI 3 16:17:28 Weakness of right hand 36543969204 935192 Active 2022 Josué Victoria [facility] Attn: Anita avila,[address] [facility], [place], [address] [place] [address] 2, [facility] - SI 3 16:17:49 Incontin ence of feces 99496047 Active 2023 [facility] Attn: Anita avila,[address] [facility], [place], [address] [place] [address] 2, [facility] 4 17:35:26 Overacti ve urinary bladder 279121726 Active 2023 Josué Victoria [facility] Attn: Anita avila,[address] [facility], [place], [address] [place] [address] 2, [facility] - SI 4 17:35:28 Peripher al neuropat hy due to type 2 diabetes mellitus 54016179993 07 Active 2023 [facility] Attn: Anita avila,[address] [facility], [place], [address] [place] [address], [facility] SI 4 16:30:55 Notes:Some problems listed i n Documents: #[id number], #[id number] could not be added to this patient's chart. Please review these documents and add these problems to the patient's chart manually as needed. Problem Notes None recorded. Procedures Surgical History Date Name Laterality Status Provider Name and Address Organization Details Recorded Time 4 Suture/Staple removal completed NATACHA Burk Attn: Accounting,[address] [facility], [place], [address], [facility] 04/01/2024 17:53:04 4 Cerumen Removal completed GRETCHEN Burk Attn: Accounting,[address] [facility], [place], [address], [facility] SI 03/03/2024 17:18:47 6 Toenail avulsion [facility] Attn: Accounting,[address] [facility], [place], [address], [facility] SI 01/07/2016 15:01:43 Angioplasty With Stent [facility] Attn: Accounting,[address] [facility], [place], [address], [facility] SI 03/29/2015 11:25:03 Imaging Results None recorded. Procedure Notes None recorded. Medical Equipment None Reported. Allergies Allergen ID Allergen Name Allergen Category Reaction Reaction Severity Criticality Documentation Date Start Date Code Code System Note Provider Name and Address Organization Details Recorded Time 20350102 amlodipin e medicatio n swelling Not available high 07/22/20252022 65424 RxNorm In legs, ankle s, feet. Not Available rosio - External Data Service - prod 5 04:35:26 Medications Name Sig Start Date Stop [...] 04/19 completed 12/08/15: refilled x6 called into [facility] spoke with Cait. Not Available Not Available [...] completed Not Available Not Available Not Available monteluka st tab 10mgmonte lukast sodium 09/22 completed Not Available Not Available Not Available clotrimaz ole cre 1%clotrim azole active Not Available Not Available Not Available metoprolo [...] TABLET BY MOUTH ONCE DAILY 04/16 completed 11/02 c/o lower extremit y swelling Not Available [...] completed Not Available Not Available Not Available hydrochlo rothiazid e 12.5 mg tablet TAKE 1 TABLET BY MOUTH IN THE MORNING 06/09 completed Not Available Not Available Not Available OneTouch Delica Lancets 33 gauge 09/04 completed Not Available Not Available Not Available OneTouch Delica Lancets use as directed to check blood sugars TID 06/21 completed called into [facility] spoke with Caroline Not Available Not Available [...] Not Available Vitals Date Recorded Body height Provider Name an d Address Organization Details Last Updated DateTime 07/22/2025 156.21 cm Amy Stewart RN [facility] 2024 15:54:29 Date Recorded Body mass index (BMI) Body weight Body temperature Oxygen saturation Heart rate Systolic And Diastolic Provider Name and Address Organization Details Last Updated DateTime 29.3 kg/m2 46166.1 9 g 98.7 [degF] 96 % 86 /min 110/70 mm[Hg] Cara bhandari [place] 16:04:05 Social History Question Answer Notes LastModified by Organizat ion Details LastModified Time Tobacco Smoking Status Former Smoker Quit in 1999 WEN ACEVEDO NP [address] [place], [address], [place] [facility] 04/01/2021 12:06:05 Do You Have An Advance Directive? No [email or web address] Information not available 11/17/2014 Are You Blind Or Do You Have Difficulty Seeing? No Information not available 12/09/2020 What Is Your Level Of Caffeine Consumption? Moderate [email or web address] Information not available 11/17/2014 How Much Tobacco Do You Chew? None [email or web address] Information not available 11/17/2014 In The 14 [...] Type Of Diet Are You Following? REGULAR [email or web address] Information not available 11/17/2014 Education Less Than 8th Grade [email or web address] Information not available 11/17/2014 Are There Any Guns Present In Your Home? No [email or web address] Information not available 11/17/2014 Hard Of Hearing Or Deaf In One Or Both Ears? No [email or web address] Information not available 11/17/2014 Legally Blind In One Or Both Eyes? No [email or web address] Information no t available 11/17/2014 Marital Status [email or web address] Informati on not available 11/17/2014 What Was The Date Of Your Most Recent Tobacco Screening? 07/22/2025 Information not available 07/22/2025 What Is Your Relationship Status? [email or web address] Information not available 06/15/2021 Do You Use Your Seat Belt Or Car Seat Routinely? Yes Information not available 12/09/2020 Seat Belts Used Routinely Yes [email or web address] Information not available 11/17/2014 Smoke Alarm In Home Yes [email or web address] Information not available 11/17/2014 Do You Have Smoke And Carbon Monoxide Detectors In Your Home? Yes Information not available 12/09/2020 Are You Passively Exposed To Smoke? No Information no t available 12/09/2020 How Much Tobacco Do You Smoke? No [email or web address] Information not available 11/17/2014 General Stress Level Medium [email or web address] Information not available 11/17/2014 Do You Use Sunscreen Routinely? No Information not available 11/17/2014 Has Tobacco Cessation [...] is your level of alcohol consumption? None Information not available 11/17/2014 Do you or have you ever used smokeless tobacco? Never used smokeless tobacco Information not available 06/19/2019 Are you currently employed? No Information not available 12/09/2020 Are you able to care for yourself independently? 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 Never used electronic cigarettes Information not available 06/19/2019 What is your exercise level? Moderate Information not available 11/17/2014 Mental Status Question Answer Note LastModified by Organization D etails LastModified Time Do you feel stressed (tense, restless, nervous, or anxious, or unable to sleep at night)? [id number] Information not available 09/04/2022 Family History Relationship [...] History Condition Response Diabetes Y Allergies/Hayfever Y Coronary Artery Disease Y Muscle, Joint, or Bone Problems Y High Blood Pressure Y Arthritis Y [...] [facility] 03/06/2022 16:32:23 zoster recombinant 2 completed NATACHA Burk Attn: Accounting,[address] [place], [address], [place] [facility] 05/11/2023 15:47:23 zoster recombinant 3 completed NATACHA Burk Attn: Accounting,[address] [place], [address], [place] [facility] 05/11/2023 15:47:43 influenza, whole 6 completed Not Available [facility] 07/[facility]/2025 15:48:31 Novel Quidkxhiq-D8N0-18, all formulations 9 completed Not Available [facility] 07/22/2025 15:48:31 COVID-19, mRNA, LNP-S, PF, 100 mcg/0.5mL dose or 50 mcg/0.25mL dose 2 completed Not Available [facility] 07/22/2025 15:48:31 zoster recombinant 2 completed Not Available [facility] 07/22/2025 15:48:31 zoster recombinant 3 completed Not Available [facility] 07/22/2025 15:48:31 Tdap 4 completed NATACHA Burk Attn: Accounting,[address] [facility], [place], [address], [place] [facility] 03/29/2015 11:44:42 Influenza, split [...] PF 2 completed Cara Mil[place] [facility] 09/04/2022 14:58:39 pneumococcal polysaccharide PPV23 4 completed Belen Parham [place] [facility] 11/17/2014 10:32:13 Hep B, adult 3 completed NATACHA Burk Attn: Accounting,[address] [facility], [place], [address], [place] [facility] 05/18/2023 15:02:54 Pneumococcal conjugate PCV20, polysaccharide HXM043 conjugate, adjuvant, PF 3 completed NATACHA Burk Attn: Accounting,[address] [facility], [place], [address], [place] [facility] 05/18/2023 15:02:54 Hep B, adult 4 completed NATACHA Burk Attn: Accounting,[address], [place], [address], [facility] 11/01/2023 17:31:35 Hep B, adult 4 completed JEN Mitchell, [place] 03/03/2024 17:39:10 Influenza, split virus, trivalent, preservative 4 completed NATACHA Burk Attn: Accounting,[address], [place], [address], [facility] 06/09/2024 17:06:58 Past Encounters Encounter ID Performer Location Encounter Start Date Encounter Closed Date Diagnosis/Indication Diagnosis SNOMED-CT Code Diagnosis ICD10 Code Diagnosis IMO Codes Diagnosis Note [id number] Tegan Cohen MD [facility] [address] [place] [address] 07/22/2025 15:46:03 07/24/2025 13:18:14 Multiple complications due to type 2 diabetes mellitus 825617206 E11.8 NON-Fastin g blood sugar 180 today HA1C 6.8 blood sugars at home elevated stressed avoidance of sodas/juic es/LSM continue Metformin 1000mg bid continue Jardiance 25mg once daily Increase Ozempic 0.5mg once weekly to 1mg weekly BS at home 120-150 range-he drinks soda daily 1-2 cans advised need for better BS control-he is at risk for another cardiovasc ular event Essential hypertension 71916457 I10 BP Goal: Less than 135/85BP Controlled : yes; per the JNC8 guidelines in the absence of renal disease and DMHealthy Weight: 5'1= 100-131 lbsDiscuss ed: Low sodium balanced diet, moderate exercise at least 3-4 times per week for an average of 40 minutesNex t Visit: 3month(s)c ontinue present medschecks b/p at home 104/70-120 -80 range04/01BUN 11creat 0.53eGFR 53003 022BUN 13creatini ne 0.47eGFR 19645/13/2 023BUN 10creat 0.66eGFR 15255/10/2 024BUN 9creat 0.70eGFR 65883/09/2 024BUN 17creat 0.65eGFR 109 Major depr essive disorder 558466403 F32.9 Be physically active. Doing 30 minutes [...] the numbers for these national suicide hotlines: 4-914-273- TALK (7-019-937 -3901) and 1-360-SUIC NENITA (0-903-773 -4660). If you or someone you know talks about suicide or feels hopeless, seek help immediatel y. c/w fluoxetine 20mg daily Right hemiparesis 568671 009 G81.90 History of CVA with residual deficits-[facility] as sequela of strokeputt ing all his weight on His L side hence gets tired from his R side not having full strengthus es a cane hand gets tiredhas fallen several times Weakness o f right hand 8736808780 2376988 R29.898 Ischemic stroke with R hemiparesi s on 06/16/2019 and on 08/10/2019 Ischemic stroke 08/10/2019 (New pontine stroke) and subacute stroke 06/16/2019 with R sided hemiparesi s/weakness Patient referred to OT Body mass index 30+ - obesity 452612729 Z68.31 BMI 29Healthy weight range 100-130 Ht5' 1.5 Mixed hyperlipidemia 267 363397 E78.2 62906 diet weight loss and ogzhwycr82h o 112trig 177HDL 36JVP76 06/15/2021 cho 132trig 250HDL 39.4LDL 51 01/01/2020 [...] Benign pro static hyperplasia without outflow obstruction 985456446 N40.[address] recommends stopping Cardura 4 mg daily PSA 1.2 on 08/03/[address] Arrington 05/2022 was started on trial Levitra for BPH/ED and samples Gemtesa 75mg for overactive bladderPSA 1.3 01/11/2023 Vitamin D deficiency 347 81573 E55.9 Vitamin D 20.5otc vitamin D3 1000 IU once daily Steatotic liver disease 329247991 K76.0 Doesnt drink alcohol at all nowDrank a lot of alcohol during his younger days He stopped alcohol consumptio n 20 years ago Patient has been seen by GI 01.19.2021 liver u/s shows steatosis of liver Gastroesop hageal reflux disease 421843139 K21.9 Continue Pantoprazo le prnuse pepcid for milder symptomspo tential implicatio ns of daily PPI's Chronic ki dney disease 306778351 N18.9 CKDReferra l given today againseen on 02/08/2022 follow up in 1 yearHad veto bhandari coming up 01/2023-not seengiven a new referral at last visit-has not seenstill has not seen-pt to call for veto t-RN spoke with Dr Michelle's office will be calling pt for appointgalo t Osteoarthritis 049744906 M19.90 use tylenol arthritis prn Obesity 918759051 E66.9 BMI 28.3Health y weight range 100-130 Ht5' 1.5diet weight loss exercise Seasonal a llergic rhinitis 484330362 J30.2 Spasticity as sequela of stroke 3999824191 18958 R25.2 Neurologis t gave tizanidine 4mg every 6 hours seen just got refill at visitNeuro logist injected botox upper chest/arm/ legPatient seen by neurologis t not getting BOTOX nowPatient doesnt tolerate TIZANIDINE Overactive urinary bladder 417128613 N32.81 Coronary atherosclerosis 930331201 I25.10 patient has seen Cardiology 08/14/2023 -- Peripheral neuropathy due to type 2 diabetes mellitus [id number] 107 E11.42 reports L foot swelling and pain (not swollen today)Has been taking motrinpati ent advised cant take motrin secondary to CKDwork at blood sugar control Erectile dysfunction [phone] [id number] N52.9 [id number] Last seen in 2021Has tried kortney huston cialis did not helpNeeds re-evaluat ionSeen by Dr Arrington in the past-needs to see Dr Womack Pain of ri ght knee joint [id number] M25.561 [id number] Influenza vaccination declined [id number] Z28.21 [id number] Health Concerns Section Related Observation LastModified by Organization Dick ferrer LastModified Time None Recorded Concern Status LastModified by Organization Details LastModified Time None Recorded Payers Encounter Date Sequence Insurance Name Policy Number Policy Naqvi Covered Member ID Naqvi Member ID Guarantor Name 07/22/2025 1 [employer] - PRIME (MEDICARE REPLACEMENT/ ADVANTAGE - HMO) [id number] Leonardo Cabello [id number] Leonardo Cabello Notes Date Note Type Note Provider Name and Address Organization Details Recorded Time 07/22/2025 text/html ROS as noted in the HPI [...] problems or concerns. NATALIYA CARMICHAEL PA-C Attn: Accounting,[address] [place], [address], [facility] 07/23/2025 14:38:09
--- OUTSIDE RECORDS SUMMARY | 2025-09-28 16:59 | XMS_ITS | Encounter Summary ---
Author Organization [facility] Address [address] [place] [address] Care Team Providers Care Mail Processing Clerk Name Role Phone Thierno Michel MD Unavailable Unavailable Josué Aguilar [facility] Primary Care Provider [phone] Olayinka Espinoza MD Unavailable [phone] Encounter Details Date Type Department Care Team (Late st Contact Info) Description 04/20/2017 Abstract [facility] AT [address] [id number] Jorgito Polanco MA Social History Tobacco Use Types Packs/Day Years Used Date Smoking Tobacco: Never Smokeless Tobacco: Never Alcohol Use Standard Drinks/Week Comments No 0 (1 standard drink = 0.6 oz pur e alcohol) Sex and Gender Information Value Date Recorded Sex Assigned at Male 11/12/2024 2:54 PM WAREHOUSE REPRESENTATIVE Legal Sex Male 12:14 AM CDT Gender Identity Not on file Sexual Orientation Not on file 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 [address] [place], [place] [id number] documented as of this encounter Procedures Procedure [...] Final Result * HEMOGLOBIN, GLYCOSYLATED (10/19/2017) Pathologist [facility] HGB A1C 11.5 10/19/2017 [facility] Final Result * (ABNORMAL) COMPREHENSIVE METABOLIC PANEL (10/19/2017) Pathologist [facility] SODIUM S/P/B 139 POTASSIUM S/P/B 4.7 CO2 [...] Result * CBC (OUTSIDE LAB) (10/19/2017) Pathologist [facility] WBC 9.4 HGB 14.6 HCT 44.1 PLT 265 10/19/2017 [facility] Abstract LAB-OUTSIDE/ABSTRACTED Final Result * THYROID STIM HORMONE, TSH (12/22/2016) TSH 1.19 12/22/2016 us Doc [facility] Final Result * HEMOGLOBIN, GLYCOSYLATED (12/22/2016) Pathologist [facility] HGB A1C 8.4 12/22/2016 us Doc [facility] Edited Resul t - Final * (ABNORMAL) COMPREHENSIVE METABOLIC PANEL (12/22/2016) Pathologist [facility] SODIUM S/P/B 139 POTASSIUM S/P/B 4.6 CO2 [...] Result * CBC (OUTSIDE LAB) (12/22/2016) Pathologist [facility] WBC 8.6 HGB 14.8 HCT 44.2 PLT 275 12/22/2016 us Doc [facility] Abstract LAB-OUTSIDE/ABSTRACTED Final Result * LIPID PANEL (09/22/2016) Pathologist [facility] CHOLESTEROL 171 HDL 43 TRIGLYCERIDES 223 LDL (CALCULATED) 83 09/22/2016 us Doc [facility] Final Result documented in this encounter Visit Diagnoses Not on filedocumented in this encounter Care Teams Mail Processing Clerk Relationship Specialty Start Date End Date Josué Aguilar CNP PCP - General NURSE PRACTITIONER 03/15/16 Thierno Michel MD [place] Chief Of Safety And Protection CARDIOVASCULAR DISEASE 03/13/16 Olayinka Espinoza MD [facility]. [facility] [address] [place] [address] [place] Chief Of Safety And Protection CARDIOVASCULAR DISEASE 11/02/17 documented as of this encounter
--- OUTSIDE RECORDS SUMMARY | 2025-09-28 16:59 | XMS_ITS | Encounter Summary ---
Author Organization [facility] Address Critical access hospital[address] [place] [address] Care Team Providers Care Home Visits Nurse Name Role Phone Thierno Michel MD Unavailable Unavailable Josué Aguilar [employer]OTTON GRADER Primary Care Provider [phone] Josué Aguilar COTTON GRADER Primary Care Provider [phone] Olayinka Espinoza MD Unavailable [phone] Encounter Details Date Type Department Care Team (Late Contact Info) Description 09/13/2015 Abstract [facility] AT [address] [address] Salena Ferrara, [facility]- [address] [place], [place] [address] Social History Tobacco Use Types Packs/Day Years Used Date Smoking Tobacco: Never Smokeless Tobacco: Never Alcohol Use Standard Drinks/Week Comments No 0 (1 standard drink = 0.6 oz pur e alcohol) Sex and Gender Information Value Date Recorded Sex Assigned at Male 11/12/2024 2:54 PM TONGUE TRIMMER Legal Sex Male 12:14 AM CDT Gender Identity Not on file Sexual Orientation Not on file 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 [address] [place], [place] [address] documented as of this encounter Visit Diagnoses Not on filedocumented in this encounter Care Teams Home Visits Nurse Relationship Specialty Start Date End Date Josué Aguilar CNP PCP - General NURSE PRACTITIONER 03/15/16 Josué Aguilar CNP PCP - General 05/14/15 03/14/16 Thierno Michel MD [place] Transfer Worker CARDIOVASCULAR DISEASE 03/13/16 Olayinka Espinoza MD Three [facility]. [facility] [address] [place], [place] [address] Zahra Transfer Worker CARDIOVASCULAR DISEASE 11/02/17 documented as of this encounter
--- OUTSIDE RECORDS SUMMARY | 2025-09-28 16:59 | XMS_ITS | Encounter Summary ---
Author Organization [facility] Address [address] [place] [address] Care Team Providers Care Home Service Advisor Name Role Phone Thierno Michel MD Unavailable Unavailable Josué Aguilar PASSENGER LOCOMOTIVE ENGINEER Primary Care Provider [phone] Josué Aguilar [facility] Primary Care Provider [phone] Olayinka Espinoza MD Unavailable [phone] Encounter Details Date Type Department Care Team (Late Contact Info) Description 03/13/2016 Abstract [facility] AT [address] [address] [place], [facility] Social History Tobacco Use Types Packs/Day Years Used Date Smoking Tobacco: Never Smokeless Tobacco: Never Alcohol Use Standard Drinks/Week Comments No 0 (1 standard drink = 0.6 oz pur e alcohol) Sex and Gender Information Value Date Recorded Sex Assigned at Male 11/12/2024 2:54 PM HIDE AND SKIN PROCESSING WORKER Legal Sex Male 12:14 AM CDT Gender Identity Not on file Sexual Orientation Not on file 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 [address] [address] documented as of this encounter Procedures Procedure [...] filedocumented in this encounter Care Teams Home Service Advisor Relationship Specialty Start Date End Date Josué Aguilar CNP PCP - General NURSE PRACTITIONER 03/15/16 Josué Aguilar CNP PCP - General 05/14/15 03/14/16 Thierno Michel MD [place] Aircraft Technician CARDIOVASCULAR DISEASE 03/13/16 Olayinka Espinoza MD [address] [place] [address] Zahra Aircraft Technician CARDIOVASCULAR DISEASE 11/02/17 documented as of this encounter
--- OUTSIDE RECORDS SUMMARY | 2025-09-28 17:00 | XMS_ITS | Clinical Summary ---
Author Organization [facility] Address [address] [facility] [address] Care Team Providers Care Materials Planning Manager Name Role Phone Jeff, Josué Frazier MEDICAL MANAGER-CHILD WELFARE SOCIAL WORKER Primary Care Pro vider Source Comments [facility],non-owned Affiliates and Associated Physician Practices is amultiple site organization consisting of ambulatory clinics and hospital sitesin [place], [place], [place] and [place]. This disclosure is being madepursuant to the Care Everywhere program and may not contain all information available regarding this patient. Last updated 18.[facility] [employer] Allergies No known active allergies Medications * [...] on file Legal Sex Male 5:46 PM MASON LINER Gender Identity Not on file Sexual Orientation [...] COMPREHENSIVE METABOLIC PANEL STAT 09/26/2019 3:43 PM MASON LINER HIV-1 HIV-2 ANTIGEN/ANTIBODY STAT 09/26/2019 3:43 PM MASON LINER from Last 3 Months or Most Recently Relevant to Health Maintenance Results * HIV-1 HIV-2 ANTIGEN/ANTIBODY (09/26/2019 3:43 PM MASON LINER) HIV Antigen/Antibod y 1 & 2 Non-reacti ve Non-react rosamaria 09/26/2019 4:49 PM [facility] Comment: Neither HIV-1 p24 Antigen nor HIV-1/HIV-2 Antibodies are detected. Blood BLOOD SPECIMEN / Unknown Venipuncture / Unknown 09/26/2019 3:43 PM MASON LINER 09/26/2019 3:46 PM MASON LINER us Nelly Espinosa MD LAB - HEMATOLOGY ORDERABLES Final Result [facility] [address] [phone] * (ABNORMAL) COMPREHENSIVE METABOLIC PANEL (09/26/2019 3:43 PM MASON LINER) Pathologist [facility] BUN 14 7 - 26 mg/dL 09/26/2019 4:05 PM [facility] Creatinine 0.6 0.6 - 1.2 mg/dL 09/26/2019 4:05 PM [facility] Sodium 138 136 - 145 mmol/L 09/26/2019 4:05 PM [facility] Potassium 4.2 3.5 - 4.5 mmol/L 09/26/2019 4:05 PM [facility] Chloride 102 98 - 107 mmol/L 09/26/2019 4:05 PM [facility] CO2 25 22 - 29 mmol/L 09/26/2019 4:05 PM [facility] Glucose 140(H) 70 - 115 mg/dL 09/26/2019 4:05 PM [facility] Calcium 9.6 8.4 - 10.2 mg/dL 09/26/2019 4:05 PM [facility] Protein Total 8.0 6.0 - 8.3 g/dL 09/26/2019 4:05 PM [facility] Albumin 3.6 3.4 - 5.0 g/dL 09/26/2019 4:05 PM [facility] Bilirubin Total 0.7 0.2 - 1.2 mg/dL 09/26/2019 4:05 PM [facility] Alkaline Phosphatase 115 40 - 150 Units/L 09/26/2019 4:05 PM [facility] ALT 20 0 - 55 Units/L 09/26/2019 4:05 PM [facility] AST 16 5 - 34 Units/L 09/26/2019 4:05 PM [facility] Anion Gap 15 8 - 18 09/26/2019 4:05 PM [facility] BUN/Creatinine Ratio 23 7 - 23 09/26/2019 4:05 PM [facility] Osmolality Calculated 289 270 - 300 mOsm/kg 09/26/2019 4:05 PM [facility] Albumin/Globulin Ratio 0.8(L) 1.1 - 2.3 09/26/2019 4:05 PM [facility] eGFR >60 >60 mL/min/1.7 3 m2 09/26/2019 4:05 PM [facility] Blood BLOOD SPECIMEN / Unknown Venipuncture / Unknown 09/26/2019 3:43 PM MASON LINER 09/26/2019 3:46 PM MASON LINER Nelly Espinosa MD LAB - CHEMISTRY ORDERABLES F inal Result [facility] [address] [phone] from Last 3 Months or Most Recently Relevant to Health Maintenance Insurance MEDICAID - OUT OF STATE AETNA [facility] [place] [place] [address] [facility] Care Teams Materials Planning Manager Relationship Specialty Start Date End Date Josué Aguilar APRN-MAICO [address] [place] [id number] PCP - General 01/09/20
--- OUTSIDE RECORDS SUMMARY | 2025-09-28 17:00 | XMS_ITS | Encounter Summary ---
Author Organization [facility] Address Critical access hospital[address] [place] [address] Care Team Providers Care Perpetual Inventory Clerk Name Role Phone Josué Aguilar CNP Primary Care Provider [phone] Olayinka Espinoza MD Unavailable [phone] Encounter Details Date Type Department Care Team (Late Contact Info) Description 01/06/2022 Abstract [facility], [facility] [address] [place] [address] Sonali Dooley, RMA Social History Tobacco Use Types Packs/Day Years Used Date Smoking Tobacco: Never Smokeless Tobacco: Never Alcohol Use Standard Drinks/Week Comments No 0 (1 standard drink = 0.6 oz pur e alcohol) Sex and Gender Information Value Date Recorded Sex Assigned at Male 11/12/2024 2:54 PM ELEMENTARY SCHOOL TEACHER'S AIDE Legal Sex Male 12:14 AM CDT Gender Identity Not on file Sexual Orientation Not on file 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 [place], [place] [phone] documented as of this encounter Procedures Procedure [...] on filedocumented in this encounter Care Teams Perpetual Inventory Clerk Relationship Specialty Start Date End Date Josué Aguilar CNP PCP - General NURSE PRACTITIONER 03/15/16 Olayinka Espinoza MD [address] [place], [place] [address] Josephine Radiation Oncology Therapist CARDIOVASCULAR DISEASE 11/02/17 documented as of this encounter
--- OUTSIDE RECORDS SUMMARY | 2025-09-28 17:00 | XMS_ITS | Encounter Summary ---
Author Organization [facility] Address [address] [place] [address] Care Team Providers Care Rn Recruitment Name Role Phone JeffJosué arboleda Mila NINA Primary Care Provider [phone] Olayinka Espinoza MD Unavailable [phone] Encounter Details Date Type Department Care Team (Late st Contact Info) Description 04/13/2020 Abstract [facility] at [facility], [facility] [address] [place] [address] Jorgito Polanco MA Social History Tobacco Use Types Packs/Day Years Used Date Smoking Tobacco: Never Smokeless Tobacco: Never Alcohol Use Standard Drinks/Week Comments No 0 (1 standard drink = 0.6 oz pur e alcohol) Sex and Gender Information Value Date Recorded Sex Assigned at Male 11/12/2024 2:54 PM CONSULTATIVE SALES ASSOCIATE Legal Sex Male 12:14 AM CDT Gender Identity Not on file Sexual Orientation Not on file 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 [address] [place], [place] [phone] documented as of this encounter Procedures Procedure [...] Final Result * HEMOGLOBIN, GLYCOSYLATED (11/20/2019) Pathologist [facility] HGB A1C 7.2 % 11/20/2019 us Doc [facility] LAB[facility]AT[facility] Final Result * CBC (OUTSIDE LAB) (11/20/2019) Pathologist [facility] WBC 12.9 HGB 15.2 HCT 47.5 PLT 275 11/20/2019 us Doc [facility] Abstract LAB-OUTSIDE/ABSTRACTED Final Result * LIPID PANEL (11/20/2019) Pathologist [facility] CHOLESTEROL 130.2 HDL 51.5 TRIGLYCERIDES 113 LDL (CALCULATED) 62 11/20/2019 us Doc [facility] LABORAT[facility] Final Result * (ABNORMAL) COMPREHENSIVE METABOLIC PANEL (11/20/2019) Pathologist [facility] SODIUM S/P/B 137.5 POTASSIUM S/P/B 4.8 CO2 [...] on filedocumented in this encounter Care Teams Rn Recruitment Relationship Specialty Start Date End Date Josué Aguilar CNP PCP - General NURSE PRACTITIONER 03/15/16 Olayinka Espinoza MD [id number] [place] [address] [place] Senior Administrative Support CARDIOVASCULAR DISEASE 11/02/17 documented as of this encounter
--- OUTSIDE RECORDS SUMMARY | 2025-09-28 17:00 | XMS_ITS | Clinical Summary ---
Author Organization [facility] Address [address] [place] [address] Phone Care Team Providers Care Grid Inspector Name Role Phone Josué Aguilar MD Primary Care Provider [phone] Allergies No known active allergies Medications atorvastatin [...] Department Care Team Description 08/06/2025 3:00 PM DISASSEMBLER PRODUCT Office Visit [facility] [address] [facility] [address] [place] [address] Steven Khan MD Stage 1 chronic kidney disease (Primary Dx); Essential (primary) hypertension; Diabetes mellitus with renal manifestations, type II or unspecified type, uncontrolled ([facility]) from Last 3 Months Immunizations Immunization Administration [...] on file Legal Sex Male 8:31 AM [facility] Gender Identity Not on file Sexual Orientation Not on file Last Filed Vital Signs Vital Sign Reading Time Taken Comments Blood Pressure 131/78 08/06/2025 2:46 PM DISASSEMBLER PRODUCT Pulse 80 08/06/2025 2:46 PM DISASSEMBLER PRODUCT Temperature - - Respiratory Rate - - Oxygen Saturation - - Inhaled Oxygen Concentration - - Weight 70.8 kg (156 lb) 08/06/2025 2:46 PM DISASSEMBLER PRODUCT Height 154.9 cm (5' 1) 08/06/2025 2:46 PM DISASSEMBLER PRODUCT Body Mass Index 29.48 08/06/2025 2:46 PM DISASSEMBLER PRODUCT Plan of Treatment Upcoming Encounters Date Type Department Care Team ([facility] st Contact Info) Description 08/04/2026 3:00 PM DISASSEMBLER PRODUCT Office Visit [facility] [address] [facility] [address] [place] [address] Steven Khan MD [address] [address] Health Maintenance Due Date Last Done Comments Diabetic Foot Exam 1976 Ophthalmology Exam 1976 Pneumococcal PPSV23 Highest Risk Adult (2 of 3 - PPSV23) 11/08/2021 09/13/2021 COVID-19 Vaccine (3 - 2024-2 6 season) 2025 12/17/2021, 02/12/2021 Influenza Vaccine (#1) 2025 , 09/04/2022, 06/15/2021, Additional history exists Insurance [place] [employer] , [address] [id number] PM INTERFACED INSURANCE Care Teams Grid Inspector Relationship Specialty Start Date End Date Josué Aguilar MD [address], [place] [id number] PCP - General Family Medicine 03/26/19
--- OUTSIDE RECORDS SUMMARY | 2025-09-28 17:00 | XMS_ITS | Clinical Summary ---
Author Organization [facility] Address [address] [place] [address] Care Team Providers Care Grocery Worker Name Role Phone Josué Aguilar CNP Primary Care Provider Olayinka Espinoza MD Unavailable [phone] Allergies Active Allergy Reactions Criticality Noted [...] 05/17/2017 Overview (11/12/2024): follows with GI Dr. 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 Not on file Not on file Last Filed Vital Signs Vital Sign Reading Time Taken Comments Blood Pressure 110/80 11/12/2024 3:05 PM QUANTITATIVE EQUITY HEAD Pulse 82 11/12/2024 3:05 PM QUANTITATIVE EQUITY HEAD Temperature 36.6 C (97.8 F) 10/24/2019 5:04 PM QUANTITATIVE EQUITY HEAD Respiratory Rate 20 10/24/2019 7:03 PM QUANTITATIVE EQUITY HEAD Oxygen Saturation 97% 11/12/2024 3:05 PM QUANTITATIVE EQUITY HEAD Inhaled Oxygen Concentration - - Weight 70.8 kg (156 lb) 11/12/2024 3:05 PM QUANTITATIVE EQUITY HEAD Height 157.5 cm (5' 2) 11/12/2024 3:05 PM QUANTITATIVE EQUITY HEAD Body Mass Index 28.53 11/12/2024 3:05 PM QUANTITATIVE EQUITY HEAD Plan of Treatment Upcoming Encounters Date Type Department Care Team (Late st Contact Info) Description 11/18/2025 3:00 PM QUANTITATIVE EQUITY HEAD Office Visit [facility], [facility] [address] [place] [address] Olayinka Espinoza MD Three [facility]. [facility] [address] [place], [place] [address] Health Maintenance Due Date Last Done Comments [...] Recently Relevant to Health Maintenance [facility] [address] MEDICARE Care Teams Grocery Worker Relationship Specialty Start Date End Date Josué Aguilar CNP PCP - General NURSE PRACTITIONER 03/15/16 Olayinka Espinoza MD [facility] [address] [place] [address] Zahra Tiltrotor Crew Chief CARDIOVASCULAR DISEASE 11/02/17
[2025-09-28 17:32] VITALS: BP 116/81; PULSE 73; RESP 17; O2SAT 98
[2025-09-28 18:05] LABS: Hematocrit 46.8 % (42.0-52.0); Hemoglobin 15.5 g/dL (14.0-18.0); Immature Granulocyte Percent A 0.4 % (0-0.5); Lymphocytes Absolute Auto 3.05 K/mm3 (0.9-3.2); Mean Corpuscular HGB Conc 33.1 g/dl (32-36); Mean Corpuscular Hemoglobin 30.4 pg (26-34); Mean Corpuscular Volume 91.8 fl (80-100); Nucleated Red Blood Cells Absolute Auto 0.000 K/mm3 (0.0-0.012); Nucleated Red Blood Cells Perc 0.0 % (0.0-0.2); Platelet Count Result 286 k/mm3 (150-375); Red Blood Count 5.10 M/mm3 (4.6-6.20); White Blood Count 10.8 K/mm3 (4.5-10.0)
[2025-09-28 18:15] LABS: Alanine Aminotransferase 17 U/L (6-50); Albumin Level 4.0 g/dL (3.5-5.1); Alkaline Phosphatase 108 U/L (38-126); Anion Gap 8 mmol/L (4-12); Aspartate Amino Transferase 22 U/L (17-59); Bilirubin,Total 0.8 mg/dL (0.2-1.3); Blood Urea Nitrogen 11 mg/dL (9-20); Calcium 9.3 mg/dL (8.4-10.2); Carbon Dioxide 31 mmol/L (22-30); Chloride 101 mmol/L (98-107); Estimated CRCL calculation 92 ml/min; Estimated Glomerular Filt Rate > 60; Glucose 124 mg/dL (65-110); Potassium 3.6 mmol/L (3.4-5.0); Sodium 140 mmol/L (137-145); Total Protein 8.2 g/dL (6.3-8.2); Uric Acid 8.0 mg/dL (3.5-8.5)
--- NOTE | 2025-09-28 18:42 | ED.GENADULT ---
HPI - General Adult General Chief complaint: Extremity Problem,Nontraumatic Stated complaint: Pain/swelling in left foot- +Diabetes Time Seen by Provider: 09/28/25 16:43 History of Present Illness HPI narrative: Patient is a 60-year-old male who presents ER with pain swelling to the mid aspect left foot. Patient had similar symptoms about a week ago in his right foot that then got better on its own and then went over to his left foot. He has history of gout. The pain is starting to improve. No fevers or chills or sweats. He is able to bear weight. No trauma. No pain proximally in his calf. Related Data Home Medications ?Medication ?Instructions ?Recorded ?Confirmed ?Last Taken ?Type aspirin 81 mg tablet,delayed 81 mg PO DAILY 08/10/19 08/10/19 08/09/19 History release atorvastatin 40 mg tablet 40 mg PO DAILY 08/10/19 08/10/19 08/09/19 History cetirizine 10 mg tablet 10 mg PO DAILY 08/10/19 08/10/19 08/09/19 History clopidogrel 75 mg tablet 75 mg PO DAILY 08/10/19 08/10/19 08/09/19 History doxazosin 4 mg tablet 4 mg PO DAILY 08/10/19 08/10/19 08/09/19 History glyburide 5 mg tablet 5 mg PO DAILY 08/10/19 08/10/19 08/09/19 History lisinopril 20 mg tablet 20 mg PO DAILY 08/10/19 08/10/19 08/09/19 History metoprolol succinate 100 mg 100 mg PO DAILY 08/10/19 08/10/19 08/09/19 History tablet,extended release 24 hr sitagliptin phosphate 100 mg 100 mg PO DAILY 08/10/19 08/10/19 08/09/19 History tablet (Januvia) semaglutide 0.25 mg or 0.5 mg (2 mg subcut 03/20/24 Unknown History mg/3 mL) subcutaneous pen injector (Ozempic) Allergies Allergy/AdvReac Type Severity Reaction Status Date / Time No Known Allergies Allergy Verified 09/28/25 14:34 Review of Systems Review of Systems: All systems reviewed & are unremarkable except as noted in HPI and below Constitutional: Constitutional: Reports no additional constitutional complaints Cardiovascular: Cardiovascular: Reports no additional cardiovascular complaints Respiratory: Respiratory: Reports no additional respiratory complaints Musculoskeletal: Musculoskeletal: Reports no additional musculoskeletal complaints Integumentary/Breasts: Skin/Breast: Reports system reviewed and no additional complaints, except as docu PMFSH Past Medical History Medical History (Updated 09/28/25 @ 18:58 by Vitaly Wade MD) DVT prophylaxis Cerebrovascular accident Type 2 diabetes mellitus Arthritis bilateral shoulders Kidney stones Hyperlipidemia Hypertension Peripheral neuropathy CVA (cerebral vascular accident) Surgical History Surgical History H/O cystoscopy with stent H/O inguinal hernia repair History of cardiac cath Family History Family History Mother Diabetes mellitus Coronary artery disease Father Diabetes mellitus Social History Social History Smoking status: Former smoker Alcohol intake: never Substance use: never Living arrangements: with family Gender identity (if verbalized by the patient): Male Spiritual care concerns: No Agree to blood products: Yes Exam Narrative: GENERAL: Well-appearing, well-nourished, and in no acute distress. HEAD: Normocephalic, atraumatic. ENT: Mucous membranes moist. EXTREMITIES: Normal range of motion. No edema. Negative calf pain bilaterally. Mild edema left midfoot without point tenderness and without erythema. Normal dorsalis pedis pulse. SKIN: Warm, dry, no rash. NEURO: Alert and oriented x3. PSYCH: Normal mood and affect. Course Course Emergency Course: No fracture. May have resolving gout. Septic arthritis felt unlikely. No wounds of foot. Vital Signs Vital signs: Vital Signs Temperature 98.1 F 09/28/25 14:48 Pulse Rate 88 09/28/25 14:48 Respiratory Rate 18 09/28/25 14:48 Blood Pressure 132/80 09/28/25 14:48 Pulse Oximetry 97 09/28/25 14:48 Oxygen Delivery Room Air 09/28/25 14:48 Temperature 98.1 F 09/28/25 14:48 Pulse Rate 73 09/28/25 17:32 Respiratory Rate 17 09/28/25 17:32 Blood Pressure 116/81 09/28/25 17:32 Pulse Oximetry 98 09/28/25 17:32 Oxygen Delivery Room Air 09/28/25 14:48 [facility] Differential Diagnosis Differential Diagnosis: Gout, septic arthritis, foot fracture, foot sprain, cellulitis Lab Data [facility] Lab Attestation statement: I personally reviewed the patient's lab results. 09/28/25 18:00 09/28/25 18:00 Labs: Lab Results 09/28/25 Range/Units 18:00 WBC 10.8 H (4.5-10.0) K/mm3 RBC 5.10 (4.6-6.20) M/mm3 Hgb 15.5 (14.0-18.0) g/dL Hct 46.8 (42.0-52.0) % MCV 91.8 (80-100) fl MCH 30.4 (26-34) pg MCHC 33.1 (32-36) g/dl RDW 13.0 (11.5-14.5) % Plt Count 286 (150-375) k/mm3 MPV 9.9 (7.4-10.4) fl Immature Gran % (Auto) 0.4 (0-0.5) % Neut % (Auto) 60.9 (45.5-73.1) % Lymph % (Auto) 28.2 (18.3-44.2) % [place] % (Auto) 8.0 (2.6-8.5) % Eos % (Auto) 1.9 (0-4.4) % Baso % (Auto) 0.6 (0.2-1.2) % Lymph # (Auto) 3.05 (0.9-3.2) K/mm3 [place] # (Auto) 0.9 H (0.1-0.6) K/mm3 Eos # (Auto) 0.2 (0-0.3) K/mm3 Baso # (Auto) 0.1 (0.0-0.1) K/mm3 Abs Immat Gran (auto) 0.04 H (0.00-0.031) K/mm3 Absolute Neuts (auto) 6.6 (1.3-6.7) K/mm3 Absolute Nucleated RBC 0.000 (0.0-0.012) K/mm3 Nucleated RBC % 0.0 (0.0-0.2) % Sodium 140 (137-145) mmol/L Potassium 3.6 (3.4-5.0) mmol/L Chloride 101 (98-107) mmol/L Carbon Dioxide 31 H (22-30) mmol/L Anion Gap 8 (4-12) mmol/L BUN 11 (9-20) mg/dL Creatinine 0.64 L (0.7-1.3) mg/dL Estim Creat Clear Calc 92 ml/min Estimated GFR > 60 (59 - ) Glucose 124 H (65-110) mg/dL Uric Acid 8.0 (3.5-8.5) mg/dL Calcium 9.3 (8.4-10.2) mg/dL Total Bilirubin 0.8 (0.2-1.3) mg/dL AST 22 (17-59) U/L ALT 17 (6-50) U/L Alkaline Phosphatase 108 (38-126) U/L Total Protein 8.2 (6.3-8.2) g/dL Albumin 4.0 (3.5-5.1) g/dL Imaging Data Radiologist's impression: ITS Impressions Foot X-Ray 09/28/25 17:19 IMPRESSION: No acute fracture or dislocation. Discharge Plan Discharge Clinical Impression: Foot pain, left Patient Disposition: Home Condition: Stable Instructions: Foot Sprain (ED) Additional Instructions: There is no evidence of fracture on your x-ray. It does not appear that you have it a picture of your foot. It is possible you have resolving gout. Continue to stay hydrated and take Tylenol as needed for pain. Patient Language: [place] Prescriptions: No Action Ozempic 0.25 mg or 0.5 mg (2 mg/3 mL) pen injector SUBCUT amoxicillin-pot clavulanate 875-125 mg tablet 1 tablet PO Q12H Qty: 20 0RF atorvastatin 40 mg tablet 40 mg PO DAILY cetirizine 10 mg tablet 10 mg PO DAILY glyburide 5 mg tablet 5 mg PO DAILY lisinopril 20 mg tablet 20 mg PO DAILY metoprolol succinate 100 mg tablet extended release 24 hr 100 mg PO DAILY clopidogrel 75 mg tablet 75 mg PO DAILY aspirin 81 mg tablet,delayed release (DR/EC) 81 mg PO DAILY doxazosin 4 mg tablet 4 mg PO DAILY Januvia 100 mg tablet 100 mg PO DAILY Follow-up/Referrals: Jeff,DAISHA Moses [Primary Care Provider] - 1 Week
[2025-09-28 18:53] VITALS: BP 140/82; PULSE 71; RESP 19; O2SAT 97
== END 2025-09-28 19:17 | disposition home or self-care (01) ==
PROVIDERS: Emergency Provider Emergency Medicine; PCP Registered Nurse
DX: M79.672 Pain in left foot (principal); E11.9 Type 2 diabetes mellitus without complications; M10.9 Gout, unspecified
CPT/HCPCS: 36415; 73630; 80053; 84550; 85025; 99283